=== PATIENT | female | born 1980 | race Caucasian/White ===

== ENCOUNTER 2018-04-26 14:00 | Outpatient (RCR) | payer MEDICAID, SELFPAY ==
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
--- NOTE | 2018-04-20 07:40 | HP.PTEVAL ---
Patient's Visit Information RAUL HOPPER is a 38 year old F referred to Physical Therapy by Anca Philippe MD with a diagnosis of CVA with R LE weakness. Date of Evaluation: 04/18/18 Physical Therapist: Evelio Lee DPT - Visit Plan Frequency: 2-3x /Week Duration: 6-8 weeks Plan: HS stretching, R G/S stretching; BLE/core strengthening, cardiovascular fitness progress this is HEP. Add in coordination exercises for RLE, balance activities and gait progression to increase safety and stability. Urge and progress HEP to increase pt. carry over. - Subjective Findings: Pt is here today for her initial evaluation with diagnosis of CVA with R LE weakness. Pt. reports having her CVA several years ago, but was unsure when. Pt. has a history of multiple heart bipasses, history of heroin and meth abuse. Pt. reports having completed PT previously with good results, but wants to be normal now. Pt. is able to ambualte without AD, but has R sided AFO that she uses when she is out in community. Pt. walks barefoot at home, most of the time. Pt. reprots no pain, but does have R sided visual cut, no peripheral vision to the R side. Pt. also has a history of recent siezures. Pt. does not drive. Pt. is able to complete most ADLs, but has difficulty completing due to physical limitations. Pt. is hopeful to increas her strength in order to get back to running. - Objective POSTURE: Pt. has L lateral lean in stance, R hip ER, wide LILY, hyperext of R knee. Pt. has anterior pelvic tilt of her pelvis. PALPATION: Pt. has no pain with palpation of BLEs. Pt. has normal pulse in B LEs. Pt. has decreased sensation of RLE, worst distally. NEURO: Pt. has deminished DTR of RLE, normal on LLE throughout. Decreased sensation of LLE. Pt. is unable to complete heel/toe raise on RLE, but is able to complete shaikh stratch and hip IR. Decreased coordination noted in RLE. ROM: Pt. has tight B HS R worse than L. Pt. has tight G/S complex on RLE. Pt. has normal ROM otherwise. MMT: LLE- ankle 5/5; knee 5/5; hip 4/5 throughout. RLE- ankle- PF 4/5, DF 3/5, 1/5 EVR, 4/5 INV; knee- ext 4/5, fxion 4-/5; hip- flexion 4-/5 abd 4-/5, ext 4-/5. Core- poor. GAIT: Pt. is able to ambulate without AD, but has increased R hip ER, increased R knee hyperextension during stance phase, decreased knee flexion during swing phase, limited hip flexion and increased trunk rotation to R during R pre swing. STAIRS: PT. is able to negotiate with step to pattern with 2 HR. Pt. does have marked functional quad/glute weakness with both ascending and descending. - Goals Goal 1:: Pt. to be I with HEP. Goal Time Frame: 6-8 Weeks Goal 2:: Pt. to have increased RLE strength of all effected musculature by 1/2 grade allowing for increased stability with all functional mobility. Goal Time Frame: 4-6 Weeks Goal 3:: Pt. to ambulate unlimited distances I without AD with improved gait pattern allowing for increased ease with community mobility. Goal Time Frame: 6-8 Weeks Goal 4:: Pt. to have increased FGA score to 19/30 indicating reduce risk for future falls. Goal Time Frame: 6-8 Weeks Goal 5:: Pt. to negotiate steps JESSENIA with reciprical pattern with use of BHR allowing for increased safety with in home. Goal Time Frame: 6-8 Weeks - Rehabilitation Potential Physical Therapy Diagnosis: Pt. has signs and symptoms of R sided weakness with history fo CVA. Pt. is a poor historian and was unaware of date injury. Pt. has several co moborbidities including Hx of drug abuse and cardiac issues. Pt. would benefit from PT to increase BLE strength, balance, improve her gait pattern and increase cardiovascular fitness. Rehabilitation Potential: Fair - Anticipated Interventions Patient/Client Instruction: Educate patient on: Condition, Plan of Care, Risk Factors, Benefits of Fitness Program For the Purpose of:: To improve decision making, To facilitate caregiver knowledge, To improve self management, To prevent re-injury, To improve ability to perform tasks related to life management, To improve tolerance to ADL's Therapeutic Exercise to Include: Strength training, Power training, Endurance training, Balance training, Coordination, Agility training, Body mechanics, Postural training, Flexibilty training, Gait and locomotor training, Passive ROM, Active ROM, Dynamic Lumbar Stabilization For the Purpose of:: To increase ROM, To improve nutrient delivery to tissue, To increase oxygenation perfusion, To improve muscle performance and motor function, To improve ability to perform ADL's, To increase tolerance to activity/condition/position, To improve gait and locomotor functions, To improve health of tissue, To decrease soft tissue restriction, To increase flexibility/ROM, To improve endurance, To improve balance, To improve safety with gait, To assume or resume ADL's Thank you for the opportunity to evaluate your patient. For Medicare and Medicare HMO plans, please review the plan of care and approve it. It will need to be FAXED BACK to us at [phone] for Medicare purposes. For Medicare only, by signing this I certify the plan of care. Please let me know if there are questions or concerns regarding this plan of care. Physician Signature: Date:
--- NOTE | 2018-05-21 17:02 | HP.SP.DC ---
ST Discharge Summary - Discharged: Discharge: Meg Casillas is discharged from outpatient speech-language therapy effective 05/21/2018. Meg attended her initial evaluation 04/18/2018 with therapy recommended at that time for aphasia and other cognitive-linguistic deficits secondary to a CVA and significant history of drug abuse. Meg did not attend any therapy appointments, however, due to being placed in a psychiatric hospital due to suicide threats/mental health issues. Please reconsult as necessary.
--- NOTE | 2018-05-24 14:39 | HP.PT.NRP ---
HP - Discharge Summary (1) - Patient Information RAUL HOPPER was seen in my office for initial evaluation on 04/18/18. The following Plan of Care was established for this patient: Initial Frequency: 2-3x /Week Initial Duration: 6-8 weeks - Anticipated Interventions Patient/Client Instruction: Educate patient on: Condition, Plan of Care, Risk Factors, Benefits of Fitness Program For the Purpose of:: To improve decision making, To facilitate caregiver knowledge, To improve self management, To prevent re-injury, To improve ability to perform tasks related to life management, To improve tolerance to ADL's Therapeutic Exercise to Include: Strength training, Power training, Endurance training, Balance training, Coordination, Agility training, Body mechanics, Postural training, Flexibilty training, Gait and locomotor training, Passive ROM, Active ROM, Dynamic Lumbar Stabilization For the Purpose of:: To increase ROM, To improve nutrient delivery to tissue, To increase oxygenation perfusion, To improve muscle performance and motor function, To improve ability to perform ADL's, To increase tolerance to activity/condition/position, To improve gait and locomotor functions, To improve health of tissue, To decrease soft tissue restriction, To increase flexibility/ROM, To improve endurance, To improve balance, To improve safety with gait, To assume or resume ADL's This patient was last seen in our office 04/26/18. Pertinent comments regarding their Physical therapy will appear below: Pt. was seen for her weakness after CVA. Pt. did not attend her last 4 visits. I talked to mother and pt. is having a lot going on in her life and will not be able to attend PT right. Pt. will be DC back to physician at this point in time. At this point I will be discontinuing this patient from physical therapy. I would be happy to see this patient again in the future if found appropriate by the physician. Thank you! Evelio Lee DPT
--- OUTSIDE RECORDS SUMMARY | 2018-07-20 14:45 | XMS RPT_ITS ---
:1980 Author Organization OH[facility] Care Team Providers Name Role Phone SHAMIKA, CADE Referring Unavailable SHEREE SAUCEDO ([facility]) Referring Unavailable SHEREE SAUCEDO ([facility]) Attending Unavailable GANTA, CADE Referring Unavailable SHEREE SAUCEDO ([facility]) Referring Unavailable LOVE PRICE ([facility]) Attending Unavailable GANTA, CADE Referring Unavailable GANTA, CADE Attending Unavailable SHEREE SAUCEDO ([facility]) Referring Unavailable DERRICK SALGADO Attending Unavailable MARTY CREWS Attending Unavailable MARTY CREWS E Referring Unavailable MARTY CREWS E Referring Unavailable GANTA, CADE Referring Unavailable GANTA, CADE Referring Unavailable GANTA, CADE Referring Unavailable Ganta, Cade Primary Care Unavailable Mariella Abraham Attending Unavailable Ganta, Cade Attending Unavailable Ganta, Cade Referring Unavailable Ganta, Cade Primary Care Unavailable PROBLEMS PROBLEMS DATE TYPE CONDITION / CODE ATTENDING STATUS SOURCE 05/03/2018 Unknown R45.1 - Restlessness [place], Active [place] and agitation / [facility] R45.1(ICD-10) Hospital Repository 05/24/2018 Unknown I69.311 - Memory Ganta, Cade Active [facility] deficit following [facility] cerebral infarction Hospital / I69.311(ICD-10) Repository 04/18/2018 Active Cerebral infarction, NA Active [place] unspecified / Clinic Main I63.9(ICD-10) [place] Repository 04/10/2018 Active 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 / [place] Z95.2(ICD-10) Repository 04/03/2018 Active Unknown / DERRICK SALGADO Active [place] UNK(Unknown) Clinic Main [place] Repository 04/02/2018 Active Encounter for NA Active [place] therapeutic drug [facility] Main level monitoring / [place] Z51.81(ICD-10) Repository 03/08/2018 Active Excessive and NA Active [place] frequent [facility] Main menstruation with [place] regular cycle / Repository N92.0(ICD-10) 03/06/2018 Active terminal superintendent (current) NA Active [place] use of [facility] Main anticoagulants / [place] Z79.01(ICD-10) Repository PROCEDURES PROCEDURES No Procedure Records FoundRESULTS RESULTS PROTIME Collected: 05/23/2018 Status: F Source: [place] 7:47 AM [facility] REPOSITORY TYPE CODE TESTS RESULT OUT OF RANGE REFERENCE UNITS LAB PSEC 9.7-13.0 sec High PT Sec 14.6 LAB INR 0.9-1.3 High PT INR 1.4 Result Comment: Vitamin K Antagonist (VKA) Therapeutic Range: INR 2 to 3 (Target INR of 2.5) Note: For patients treated with VKA drugs, such as warfarin, the [place] [employer] 2012 Guideline recommends a therapeutic INR range of 2 to 3 (target INR of 2.5). This recommendation includes high-risk patients with antiphospholipid syndrome with previous arterial or venous thromboembolism, current-generation mechanical or bioprosthetic aortic heart valve replacement. Note: Patients with mechanical aortic valve replacement and additional risk factors for thromboembolic events (atrial fibrillation, previous thromboembolism, LV dysfunction, hypercoagulable conditions) or an older generation mechanical AVR (i.e., ball in-Cage) or any mechanical MVR should have a INR therapeutic range of 2.5 to 3.5 (target INR of 3). Aaron GH, et al. Chest 2012, 141:7S-47S Tip RA, et al. [facility] 2017, 70: 252-289 Performed By: #### PT #### [facility] [address] [place] [address] CNPN Observed: 05/23/2018 Status: COMPLETED Source: [place] 12:00 AM [facility] REPOSITORY Telephone (INTMWS) DOREEN CASILLAS ([id number]) 1980 F BLD Date Time Provider Department 05/23/18 CADE WICK During your visit today, we recorded the following information about you: Vickie Mattson X RAY SERVICE ENGINEER 05/23/2018 3:37 PM Signed Last INR: INR (POCT) 1.4 05/23/2018 Unable to reach pt's mother, no answer/no voicemail. Vickie Mattson X RAY SERVICE ENGINEER 05/23/2018 3:48 PM Signed [facility] f/lab calling, pt there and confirmed below: Last INR: INR (POCT) 1.4 05/23/2018 Current dose of coumadin is: 4mg daily(did not change as previously instructed). Last date of dose change: unknown. Previous INR (date and result): 2.3 04/18/2018 Additional Clinical Information or narrative: no CADE WIKC MD 05/23/2018 5:19 PM Signed coumadin dose should be 5 mg Monday and and 4 mg all other days. Recheck in a weeks time. Bella Harkins Lyft Driver 05/23/2018 6:08 PM Signed Left detailed message on VM Allergies As of Date: 05/23/2018 Noted Allergy Reaction BEE STING 04/26/2016 10 - Anaphylaxis Date Reviewed: 04/10/2018 Reviewed by: Hanane Membreno MA - Fully Assessed Reason for Visit: Anticoagulation [8] Prescriptions as of 05/23/2018 Sig: MELATONIN 5 MG TABLET Take 1 tablet by mouth daily * GLECAPREVIR 100 MG-PIBRENTASV* Take 3 tablets by mouth once * SERTRALINE 100 MG TABLET Take 2 tablets by mouth once * LEVETIRACETAM 500 MG TABLET Take 1.5 tablets by mouth onc* LEVETIRACETAM 1,000 MG TABLET Take 1 tablet by mouth daily * TRAZODONE 100 MG TABLET Take 1 tablet by mouth daily * COMPOUNDED PRESCRIPTION Physical Therapy COMPOUNDED PRESCRIPTION Consult speech WARFARIN 1 MG TABLET Take half a pill every other * WARFARIN 3 MG TABLET 3mgs daily(Add 0.5 mgs to thi* TRAZODONE 50 MG TABLET Take 50 mg by mouth daily at * COMPOUNDED PRESCRIPTION Medical Van to transport to a* COMPOUNDED PRESCRIPTION PT/OT/ST at [facility]. POLYETHYLENE GLYCOL 3350 17 G* 17 grams daily ACETAMINOPHEN 500 MG TABLET Take 1 tablet by mouth every * Problem List As Of Date 05/23/2018 Noted Resolved Aneurysm, cerebral [I67.1] INVALID FOR* More... Hep C w/o coma, chronic (HCC) [B18.2] INVALID FOR* More... Stroke (HCC) [I63.9] INVALID FOR* More... 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 Tobacco abuse disorder [Z72.0] INVALID FOR* More... Hx of substance abuse [Z87.898] INVALID FOR* More... Attention to gastrostomy tube (HCC) [Z43.1] INVALID FOR* More... Encounter Status:Closed by BELLA HARKINS CMA on 05/23/18 D/C SUMMARY- SP Observed: 05/21/2018 Status: F Source: [place] 5:02 PM [facility] REPOSITORY [facility] Speech Pathology [facility] [address] [place] [address]. [address] [place] [id number] / REHABILITATION SERVICES DISCHARGE SUMMARY MR#: [id number] Acct: [id number] Name: RAUL CASILLAS Rep #: [id number] : 1980 38 From: Fay Pearson M.S., BALJIT-WATER CONTROL STATION ENGINEER Referring Dr.: Cade Wick MD Status: REG RCR Insurance: MEDICAID SELF PAY INSURANCE ST Discharge Summary - Discharged: Discharge: Raul Casillas is discharged from outpatient speech- language therapy effective 05/21/2018. Raul attended her initial evaluation 04/18/2018 with therapy recommended at that time for aphasia and other cognitive-linguistic deficits secondary to a CVA and significant history of drug abuse. Raul did not attend any therapy appointments, however, due to being placed in a psychiatric hospital due to suicide threats/mental health issues. Please reconsult as necessary. <Electronically signed by Fay Pearson M.S., CCC-WATER CONTROL STATION ENGINEER> 05/21/18 1709 CC: Cade Wick MD MO Signed 12 LEAD ELECTROCARDIOGRAM Observed: 05/08/2018 Status: F Source: [place] 10:51 AM [facility] Cardiovascular Services [address] [place] [address] 12 Lead EKG 05/01/181958 MR#: [id number] Acct: [id number] Name: RAUL CASILLAS Rep #: [id number] : 1980 38 From: Hector Gong MD Attending Dr: Status: DEP ER Ordering Dr: Mariella Abraham MD Date: 05/01/18 Location: ED Sex: F C Admitted: Test Reason : Blood Pressure : / mmHG Vent. Rate : 084 BPM Atrial Rate : 084 BPM P-R Int : 180 ms QRS Dur : 086 ms QT Int : 376 ms P-R-T Axes : 040 094 069 degrees QTc Int : 444 ms Normal sinus rhythm Possible Left atrial enlargement Rightward axis Borderline ECG Confirmed by VIKAS HOU, HECTOR ([id number]), continuity editor EMILI GAMA ([id number]) on 05/08/2018 10:50:29 AM Referred By: LADONNA Confirmed By:HECTOR GONG MD 05/08/18 1050 Date Hector Gong MD CC: Mariella Abraham MD; Cade Wick MD Signed EMERGENCY DEPARTMENT Observed: 05/03/2018 Status: F Source: [place] SUMMARY 10:18 PM [facility] REPOSITORY [facility] Medical Records Department [address] [place] [address] Emergency Department Summary 05/03/18 2216 MR#: [id number] Acct: [id number] Name: RAUL CASILLAS Rep #: [id number] : 1980 38 From: Tino Hay DO PCP: Cade Wick MD Status: REG ER - ER Visit Summary Date of Service: 05/03/18 Chief Complaint: [] History of Present Illness: The patient is a 38 F [] Physical Examination: [] Test Results: [] Emergency Department Course and Treatment: [] Treatment Plan: [] Disposition: [] Impression: [] This note was generated with [employer] dictation software. It may contain incorrect words, spelling, and punctuation that were not noted in review of the chart prior to signing ED Disposition - Plan for ED Patient: Disposition: Home or Assisted Living Chief Complaint: Mental Health Diagnosis: Schizophrenia Instructions: ED Schizophrenia General Referrals: Cade Wick MD [Primary Care Provider] - What to do if you have Problems For any increased pain, shortness of breath, bleeding, nausea or vomiting, chest pain, or any unexpected problems, contact your Primary Care Provider. Call [facility] ([phone]) or report to the closest Emergency Room. Call 911 if necessary. 05/03/182217 <Electronically signed by Tino Hay DO> Date Tino Hay DO Cosigner Signature (If Indicated): Date CC: Cade Wick MD EMERGENCY DEPARTMENT Observed: 05/03/2018 Status: C Source: [place] SUMMARY 10:07 PM [facility] REPOSITORY [facility] Medical Records Department [address] [facility] [address] Emergency Department Summary 04/30/186 MR#: [id number] Acct: [id number] Name: WARDRAUL CARPENTER Rep #: [id number] : 1980 38 From: Mariella Abraham MD PCP: Cade Wick MD Status: REG ER ADDENDUM by Tino Hay DO on 05/03/18 at 2207 Care of the patient was turned over to me. Patient has required another dose of Geodon. Patient was able to contact her father. He is beginning to make arrangements to become her guardian. He is accepting responsibility of the patient and wants to take her home. Patient is not suicidal or homicidal. Crisis counseling was able to arrange for outpatient follow-up tomorrow morning at the crisis center. Patient will be discharged to the care of her father. He has accepted responsibility of the patient and will keep her safe. He will make sure that the patient goes to her appointment tomorrow morning. Date Tino Hay DO cc: Cade Wick MD * Addendum ADDENDUM by Demarco Cote MD on 05/03/18 at 1551 May 03, 2018 at 3:50 PM. Patient remains in the emergency department. She is psychotic and requiring periodic Geodon. We are still awaiting placement. She is not safe to be discharged. She is not safe for outpatient follow-up. We will continue the involuntary admission order. We are still awaiting placement. Date Demarco Cote MD cc: Cade Wick MD * Addendum - ER Visit Summary Date of Service: 04/30/18 Chief Complaint: Agitation History of Present Illness: The patient is a 38 F presenting with mother for agitation. Patient is refusing to answer questions on arrival. Her mother states that she has stated that she will kill herself with heroin. Patient states that she just wants to be admitted to a mental hospital. She refuses to answer any questions regarding this. She is currently living with her mother. Her mother states she has said that she wants to do heroin so she can . Physical Examination: Vitals are stable. Patient is afebrile. Alert no acute distress. HEENT exam is unremarkable. Neck is supple. Lungs are clear and equal bilaterally. Heart is regular rate and rhythm. Abdomen is soft nontender nondistended. Extremities are unremarkable. Skin is warm and dry. No focal neurologic deficit. Agitated Remainder of exam is unremarkable. Emergency Department Course and Treatment: Patient was given Geodon IM. She was initially placed in restraints. When calm and cooperative restraints were removed. CBC, chemistries unremarkable. INR is 1.7. Alcohol is negative. Tox is pending. Will discuss with the counseling center for evaluation. Disposition: per counseling center Impression: Suicidal ideation, agitation This note was generated with [employer] dictation software. It may contain incorrect words, spelling, and punctuation that were not noted in review of the chart prior to signing ED Disposition - Plan for ED Patient: Chief Complaint: Mental Health Referrals: Cade Wick MD [Primary Care Provider] - What to do if you have Problems For any increased pain, shortness of breath, bleeding, nausea or vomiting, chest pain, or any unexpected problems, contact your Primary Care Provider. Call [facility] ([phone]) or report to the closest Emergency Room. Call 911 if necessary. 04/30/180 <Electronically signed by Mareilla Abraham MD> Date Mariella Abraham MD Cosigner Signature (If Indicated): Date CC: Cade Wick MD PROTHROMBIN TIME W/INR Collected: 05/03/2018 Status: F Source: [place] 8:30 PM [facility] REPOSITORY TYPE CODE TESTS RESULT OUT OF RANGE REFERENCE UNITS LAB L300.4150 11.7-14.9 SECONDS High PROTIME 19.0 LAB L300.4200 Normal INR 1.6 Performed By: #### L300.3900 #### [facility] [address] [place], [address] PROGRESS Observed: 05/02/2018 Status: COMPLETED Source: [place] 12:38 PM [facility] REPOSITORY O ID: [id number] Author: Radha Meraz (Sw) Service: (none) Author Type: Global Regulatory Lead Type: Progress Notes Filed: 05/02/2018 12:46 PM Note Text: Yoni received guardianship paperwork from [facility] with sister Hanane named as patient guardian out of [place]. Yoni reviewed above note and patient it appears is being admitted to facility from ED. Yoni unsure about guidelines in regards to [place] law and [place] law if patient sister is still guardian. Will follow along with Care Coordination to see if further assistance is needed for patient. PROGRESS Observed: 05/02/2018 Status: COMPLETED Source: [place] 6:54 AM [facility] [place] REPOSITORY HNO ID: [id number] Author: Cade Wick Service: (none) Author Type: Physician Type: Progress Notes Filed: 05/02/2018 12:46 PM Note Text: Noted, We may have to send to get her need for guardianship established. Radha mentioned that there is a place that would do it. Can we get her there? For guardianship? For the bigger problem of needing rehab, I really agree she needs rehab and is acting the way she is because of addiction disease. Can we follow up to see if she has got set up with 180? Regards, Cade Wick MD URINALYSIS, COMPLETE Collected: 05/01/2018 Status: F Source: [place] 9:12 PM [facility] REPOSITORY Order Comment: How was Urine Obtained? CLEAN CATCH TYPE CODE TESTS RESULT OUT OF RANGE REFERENCE UNITS LAB L400.3000 Yellow COLOR Normal Yellow LAB L400.3050 Clear Normal CLARITY Sl. Cloudy LAB L400.3200 Normal mg/dl Normal GLUCOSE, UR Normal LAB L400.3300 Negative mg/dL Normal BILIRUBIN URINE Negative LAB L400.3400 Negative mg/dl Normal KETONE UR Negative LAB L400.3465 1.002-1.030 Normal SP.GR. DIPSTX 1.020 LAB L400.3550 5.0 - 8.0 pH UR Normal 6.0 LAB L400.3600 Negative mg/dl PROT Normal DIPSTX Negative LAB L400.3700 Normal mg/dl Normal UROBILI Normal LAB L400.3750 Negative Normal NITRITE UR Negative LAB L400.3780 Negative /ul High OCCULT BLOOD-UR 250 LAB L400.3800 Negative /ul LEUK Normal ESTERASE Negative LAB L400.4050 0-5 /hpf WBC 0 Normal SEEN LAB L400.4100 0-5 /hpf Normal RBC-UA 0-5 SEEN LAB L400.4150 5-10 /hpf SQUAM Normal EPI 0-5 SEEN LAB L400.4300 None Seen /hpf Normal BACTERIA RARE LAB L400.4350 <or=2+ /hpf 0 Normal MUCUS, URINE SEEN Performed By: #### L400.0001 #### [facility] [address] [place], [address] URINE DRUG SCREEN Collected: 04/30/2018 Status: F Source: [place] (VISTA) 10:00 PM [facility] REPOSITORY TYPE CODE TESTS RESULT OUT OF RANGE REFERENCE UNITS LAB L505.0075 TO BE Normal CONFIRMED Result Comment: CONFIRMATORY TESTING FOR ALL POSITIVE URINE DRUG SCREEN RESULTS WILL ONLY BE SENT OUT UPON PHYSICIAN ORDER. VISTA Urine Drug Screen methods provide only preliminary analytical test results. A more specific alternate chemical method must be used in order to obtain a confirmed analytical result. Gas chromatography/mass spectrometery (GC/MS) is the preferred confirmatory method. Clinical consideration and professional judgement should be applied to any drug of abuse test result, particularly when preliminary positive results are used. URINE TCA TESTING MUST BE ORDERED SEPARATELY. USE TEST MNEMONIC: [facility] LAB L505.5005 VISTA UDS PH 6 Normal LAB L505.5015 <1000 ng/mL AMPHETAMINES Normal NEGATIVE LAB L505.5025 < 200 ng/mL BARBITIURATES Normal NEGATIVE LAB L505.5035 < 200 ng/mL BENZODIAZIPINE Normal NEGATIVE LAB L505.5045 < 300 ng/mL COCAINE Normal NEGATIVE LAB L505.5055 < 500 ng/mL ECSTACY Normal NEGATIVE LAB L505.5065 < 300 ng/mL METHADONE Normal NEGATIVE LAB L505.5075 < 300 ng/mL OPIATES Normal NEGATIVE LAB L505.5085 < 25 ng/mL PCP Normal NEGATIVE LAB L505.5095 < 50 High ng/mL THC POSITIVE Performed By: #### L505.5000 #### [facility] [address] [place], [address] CBC W/DIFF, AUTOMATED Collected: 04/30/2018 Status: F Source: [place] 9:40 PM [facility] REPOSITORY TYPE CODE TESTS RESULT OUT OF RANGE REFERENCE UNITS LAB L100.1000 4.4-11.0 K/mm3 Normal WBC 4.7 LAB L100.1200 4.2-5.4 M/mm3 Low RBC 3.75 LAB L100.1300 12.0-15.0 g/dl Low HGB 11.5 LAB L100.1400 37-47 % Low HCT 34.1 LAB L100.1500 81-99 fL Normal MCV 90.9 LAB L100.1600 27.0-32.0 pg Normal MCH 30.7 LAB L100.1700 32-36 g/gl Normal MCHC 33.7 LAB L100.1810 11.6-14.6 % Normal RDW CV 14.0 LAB L100.1820 35.1-43.9 fl High RDW SD 46.5 LAB L100.1900 150-450 K/mm3 Normal PLT 200 LAB L100.2000 6.2-12.0 fl High MPV 12.5 LAB L100.2100 47-70 % Normal NEUT% 47.9 LAB L100.2200 19-41 % Normal LY% 40.3 LAB L100.2300 0-10 % Normal MONO% 8.7 LAB L100.2400 0-5 % Normal EO% 2.5 LAB L100.2500 0-1 % Normal BASO% 0.4 LAB L100.2550 0.0-0.9 % Normal IM GRAN % 0.200 Result Comment: IG% - Immature Granulocytes (promyelocytes, myelocytes and metamyelocytes) > 1% indicates that a LEFT SHIFT is Present. LAB L100.2620 2.0-7.7 X10 3/uL Normal Absolute Neut 2.3 LAB L100.2720 0.83-4.51 X10 3/ul Normal Absolute Lymph 1.90 Performed By: #### L100.0100 #### [facility] [address] [place], [place], [id number] PROTHROMBIN TIME W/INR Collected: 04/30/2018 Status: F Source: [place] 9:40 PM [facility] REPOSITORY TYPE CODE TESTS RESULT OUT OF RANGE REFERENCE UNITS LAB L300.4150 11.7-14.9 SECONDS High PROTIME 20.1 LAB L300.4200 Normal INR 1.7 Performed By: #### L300.3900 #### [facility] [address] [place], [place], [id number] ALCOHOL, BLOOD Collected: 04/30/2018 Status: F Source: [place] (MEDICAL)-SERUM 9:40 PM [facility] REPOSITORY TYPE CODE TESTS RESULT OUT OF RANGE REFERENCE UNITS LAB L501.9100 mg/dL Normal SERUM < 3.0 ETOH Result Comment: The serum:whole blood ethanol ratio is approximately 1.14 and varies slightly with hematocrit. Medical Alcohol reference interval and critical value in non-tolerant individuals; 50 - 100 Impairment 100 Intoxication 100 - 250 Severe Poisoning 250 - 400 Deep/possible fatal coma Performed By: #### L501.9100 #### [facility] [address] [facility] [address] [place], [place], [id number] BASIC METABOLIC Collected: 04/30/2018 Status: F Source: [place] PROFILE (BMP) 9:40 PM [facility] REPOSITORY TYPE CODE TESTS RESULT OUT OF RANGE REFERENCE UNITS LAB L501.0100 74-106 mg/dL Normal GLU 83 Result Comment: Please note revised GLUCOSE reference range effective 2017. LAB L501.1000 7-18 mg/dL Normal BUN 15 LAB L501.1100 0.55-1.02 mg/dL Normal CREAT,SERUM 0.77 Result Comment: The validity of the calculated GFR AND GFRAA in patients over 70 years has not been determined. Clinical correlation is essential. LAB L501.1110 >60 mL/min Normal EST GFR 91 Result Comment: Non- GFR Calc LAB L501.1115 >60 mL/min Normal EST GFR - AA 110 Result Comment: GFR Calc LAB L501.1255 ml/min Normal Estimated CRCL 120.23 LAB L501.1300 10-20 RATIO BUN/CRE Normal 19.6 LAB L501.2200 8.5-10 mg/dL .1 CA Normal 8.6 LAB L501.5300 136-14 mmol/L 5 NA Normal 145 LAB L501.5600 3.5-5. mmol/L 1 K Normal 3.5 LAB L501.5900 98-107 mmol/L High CL 112 LAB L501.6100 21.0-3 mmol/L 2.0 CO2 Normal 23.0 LAB L501.6200 5-15 GAP Normal 10 Performed By: #### L500.2500 #### [facility] [address] [facility] [place], [address] ,SERUM,HCG QUALI. Collected: Status: F Source: [place] 04/30/2018 9:40 PM [facility] REPOSITORY TYPE CODE TESTS RESULT OUT OF REFERENCE UNITS RANGE LAB L700.7000 0-9 Nonpreg Negative Normal HCGSQUAL NEGATIVE LAB L700.6700 =>Qualitative mIU/mL Normal HCG Qual < 1 triggr Performed By: #### L700.6800 #### [facility] [address] [place], [place], [address] LIVER PROFILE Collected: 04/30/2018 Status: F Source: [place] 9:40 PM [facility] REPOSITORY Order Comment: ADD ON TYPE CODE TESTS RESULT OUT OF RANGE REFERENCE UNITS LAB L501.1500 6.4-8.2 g/dL Normal T PROT 7.1 LAB L501.1800 3.2-5.0 g/dL Normal ALB 3.7 LAB L501.1950 2.2-4.2 g/dL Normal GLOB 3.4 LAB L501.4100 15-37 U/L Normal AST 17 Result Comment: Slight Hemolysis, Result may be falsely increased. LAB L501.4305 45-117 U/L Normal ALK P 63 LAB L501.4405 13-56 U/L Normal ALT 16 LAB L501.4600 0.20-1.00 mg/dL Normal T BILI 0.20 LAB L501.4700 0.00-0.30 mg/dL Normal D BILI 0.08 Performed By: #### L500.3400 #### [facility] [address] [place], [place], [address] PROGRESS Observed: 04/30/2018 Status: COMPLETED Source: [place] 12:16 PM [facility] REPOSITORY O ID: [id number] Author: Valorie (Rn) Noé Service: (none) Author Type: Registered Nurse Type: Progress Notes Filed: 04/30/2018 12:58 PM Note Text: PRIMARY CARE COORDINATION FOLLOW-UP NOTE Provider Action/FYI Mother here for information to have pt placed in drug rehab Gave Crisis Hotline number for [facility] Patient identified by name and date of . YES Spoke to MotherOlga Summary: Met with patient's mother in department, states she is trying to get her daughter readmitted to drug rehab because her daughter was out on the streets last night looking for drugs. States she doesn't want to wait until her daughter is foaming at the mouth before something can be done for pt. Mother called the police but they felt patient was competent to make her own decisions and would not intervene. [facility] and they told her there wasn't anything they could do. PCC called [facility] but telephone operator receptionist wasn't able to offer suggestions. Mother states she was just on the phone to patient's guardian in [place] to get advice on what to do and guardian states mother should work to get patient to admitted to rehab facility. Discussed if pt is competent to make decisions there may not be much mother can do to have patient place. Mother states she has much documentation that pt isn't competent to make decisions. Gave mother the Crisis Hotline [phone] for [facility]. Instructed to have pt's guardian's name and number available in case [facility] Duffy would like to speak to them, verbalized understanding. Informed we have a SW available here on Mon but [facility] may be best agency to contact today. Sequ[employer] Spooler plan for next outreach: No further follow up needed at this time Signature Valorie Umanzor RN April 30, 2018 [place] Observed: 04/30/2018 Status: COMPLETED Source: [place] 12:00 AM [facility] CENTER REPOSITORY Patient Outreach (FAMPWS) DOREEN CASILLAS ([id number]) 1980 F BLD Date Time Provider Department 04/30/18 VALORIE UMANZOR (TRINIDAD) TIEN During your visit today, we recorded the following information about you: Valorie Umanzor RN 04/30/2018 12:58 PM Signed PRIMARY CARE COORDINATION FOLLOW-UP NOTE Provider Action/FYI Mother here for information to have pt placed in drug rehab Gave Crisis Hotline number for [facility] Patient identified by name and date of . YES Spoke to MotherOlga Summary: Met with patient's mother in department, states she is trying to get her daughter readmitted to drug rehab because her daughter was out on the streets last night looking for drugs. States she doesn't want to wait until her daughter is foaming at the mouth before something can be done for pt. Mother called the police but they felt patient was competent to make her own decisions and would not intervene. [facility] and they told her there wasn't anything they could do. PCC called [facility] but telephone operator receptionist wasn't able to offer suggestions. Mother states she was just on the phone to patient's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 04/10/18 12:45 PM MARTY CREWS During your visit today, we recorded the following information about you: Pulse Blood pressure Weight Height 81/minute 100/68 81.7 kg 1.88 m Marty Crews MD 04/11/2018 9:14 AM Signed PERTINENT CARDIAC HISTORY MV replacement Chronic drug abuse ADHERENCE TO GUIDELINES CARLOS-I or ARB for HF with prior LVEF<40 (NQF 0081) - N/A ASA or Plavix for ASHD (NQF 0067) - N/A Beta govind for ASHD with prior ME or prior LVEF<40 (NQF 0070) - N/A Beta govind for HF with prior LVEF<40 (NQF 0083) - N/A CARLOS-I or ARB for ASHD with DM or prior LVEF<40 (NQF 0066) - N/A Statin therapy for ASHD or FHL or DM - N/A BMI documented and plan if >25 (NQF 0421) - lifestyle recommendation form Tobacco use screening and referral (NQF 0028) - lifestyle recommendation form Recommendation for whole food, plant based diet - lifestyle recommendation form CLINICAL IMPRESSION/PLAN: Doreen Casillas has had multiple cardiac procedures. Details will be sought. She appears to have a mechanical mitral valve. Her target INR range should be at least 2.5 to 3.5 with concomitant aspirin 81 milligrams daily, if she can tolerate this from a medical point of view. She was advised to increase her Coumadin to 3.5 milligrams daily for the time being, until INR can be rechecked this week. She was strongly advised to stop using recreational drugs and to avoid social situations where she is influenced adversely. Previous records will be requested. Echocardiogram will be performed to assess her current LV function and valve gradients. Lifestyle change was discussed. She was strongly advised to stop smoking. I will see her in 4 months or as needed. She's been advised to call if she has increased chest pain, shortness of breath or new neurologic symptoms. Thank you for asking me to see and make recommendations on Doreen Casillas. This report is available to you in the shared medical record. Written and verbal health teaching given to patient, patient verbalizes understanding and agrees with treatment plan. DIAGNOSIS FOR VISIT: MVR Chronic drug use HISTORY OF PRESENT ILLNESS Doreen Casillas is a 38-year-old woman with complicated past cardiac history who was seen in consultation at the request of Dr. Wick, for cardiac follow-up and recommendations regarding management of anticoagulation. She Comes with No Records. She Relates a History of 2 Separate Valve Surgeries over the past 5 years. She Apparently Had Endocarditis. Her Most Recent Valve Was Mechanical Valve. She Has Been Placed on Anticoagulation, Which Has Been Man[facility]. She Was Recently Brought Back to [place] to Stay with Her Mother. She Continues to Use Street Drugs, but Denies Any Recent IV Drug Use. She has a Previous History of Heroin and Cocaine Abuse. She Has Had Multiple Complications including Stroke. Details of Her past History Are Not Available. She denies Chest Pain. She Reports Stable Exercise Tolerance. She's Had No Orthopnea. She's Had Trace Edema. She has Undergone Treatment for Stroke. 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 She denies claudication, palpitations, syncope. She reports compliance with her anticoagulation, but does not know her target INR range. She has been on warfarin recently. She has not been on aspirin recently. She does not recall any recent problems with hemorrhage. ALLERGIES: ALLERGIES Allergen Reactions - Bee Sting Anaphylaxis CURRENT OUTPATIENT MEDICATIONS: acetaminophen (TYLENOL EXTRA STRENGTH) 500 mg tablet Take 1 tablet by mouth every 6 hours as needed for Pain. COMPOUNDED PRESCRIPTION PT/OT/ST at [facility]. COMPOUNDED PRESCRIPTION Medical Van to transport to and from [facility] for PT, OT, ST. COMPOUNDED PRESCRIPTION Physical Therapy COMPOUNDED PRESCRIPTION Consult speech glecaprevir-pibrentasvir (MAVYRET) 100-40 mg tab Take 3 tablets by mouth once daily. levETIRAcetam (KEPPRA) 1,000 mg tablet Take 1 tablet by mouth daily at bedtime. levETIRAcetam (KEPPRA) 500 mg tablet Take 1.5 tablets by mouth once daily. In the morning melatonin 5 mg tablet Take 1 tablet by mouth daily at bedtime. polyethylene glycol 3350 (MIRALAX) 17 gram/dose powder 17 grams daily sertraline (ZOLOFT) 100 mg tablet Take 2 tablets by mouth once daily. traZODone (DESYREL) 100 mg tablet Take 1 tablet by mouth daily at bedtime. traZODone (DESYREL) 50 mg tablet Take 50 mg by mouth daily at bedtime. 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 - Impairment of cognitive function 02/07/2017 Patient deemed incapacitated with Guardian appointed- sisterHanane [phone] - Poisoning by heroin, accidental (unintentional), sequela - Seizures (HCC) - Stroke (HCC) PAST SURGICAL HISTORY Procedure Laterality Date - BRAIN AVM SURG,DURAL,COMPLX 03/01/2016 - S PK OPEN HEART [id number] 03/01/2015 FAMILY HISTORY Problem Relation Age of Onset - Hypertension Mother Social History Marital status: Single Spouse name: Years of education: Number of children: Occupational History Occupation Employer Comment disability Social History Main Topics Smoking status: Current Every Day Smoker Packs/day: 1.00 Years: 22.00 Types: Cigarettes Smokeless tobacco: Never Used Alcohol use: No Drug use: Yes Frequency: 1.0 time per week Types: Marijuana Comment: every day Sexual activity: Not Currently REVIEW OF SYSTEMS: General: No chills, fever, weight loss, night sweats. SHEENT: No change in auditory acuity. Respiratory: No productive cough. Cardiac: As noted above. GI: No melena. : No dysuria. Musculoskeletal: No myalgias. Neurologic: As above. Psychiatric: As above. Endocrine: No diabetes. Hematologic: No anemia. PHYSICAL EXAMINATION: S/he is alert and in no distress VITAL SIGNS: BP 100/68 Pulse 81 Ht 6' 2 (1.88m) Wt 180 lb 3.2 oz (81.7kg) LMP 03/31/2018 BMI 23.13 kg/(m2). SHEENT: Skin is warm and dry. Pupils are round and reactive. No xanthelasmas appreciated. Pharynx is benign. There is no oral cyanosis. Neck: supple. No adenopathy or thyroid enlargement. Chest: Clear to auscultation. Trachea is midline. Air entry is equal. There is no chest wall tenderness. Cardiac: Regular rhythm. Mechanical mitral valve sounds are normal. PMI is nondisplaced. There is a soft systolic ejection murmur. Carotids are brisk without bruits. JVP is less than 10 cm. Abdomen: Soft and nontender. There are no pulsatile masses or bruits. No liver enlargement. Bowel sounds are active. : Deferred. Extremities: No edema. Pulses are intact and symmetrical. No clubbing or cyanosis. No femoral bruits. Neurologic: There is a mild right hemiparesis. S/he is alert and oriented x4. Musculoskeletal: No joint deformities. EKG shows sinus rhythm. There is rightward axis. Most recent INR was subtherapeutic. Electronically Signed: Marty Crews MD April 10, 2018 12:25 PM CC: MD Marty PINEDA MD 04/10/2018 12:26 PM Signed LIFESTYLE CHANGE A healthy lifestyle is the most important component of your overall treatment plan. Please give serious thought to the following areas and commit to making senior living changes. EAT A WHOLE FOOD, PLANT BASED DIET The nutrition your body gets is more important than the medicine you take. What matters most is the overall way you eat. We encourage you to minimize the use of animal products (which include dairy and all meats except fatty fish) and use whole, unprocessed plant foods to provide your protein, vitamins and other nutrients. We have a lot of information to share with you on this topic. This is not a diet. It is a way of life that you will keep with you. EXERCISE REGULARLY It is not important to spend hours in the gym, lifting weights and perspiring heavily. A total of 2-3 hours per week of aerobic (causing you to be moderately short of breath) exercise is sufficient to improve your health. Talk to us before you begin a new exercise program, if you have heart disease or experience shortness of breath or chest pain. REDUCE STRESS Chronic emotional and physical stress leads to disease. Ways of reducing stress include meditation, visualization, prayer, yoga and other forms of relaxation therapy. Consistency is the rubin. Find a technique that works for you and do it every day. CULTIVATE RELATIONSHIPS Loneliness and isolation have a major negative impact on health. Seek out others who can love, care for and nurture you. Avoid hurtful relationships. MAINTAIN IDEAL BODY WEIGHT The best way to do this is to do all the things above. Our bodies naturally find the right weight if we keep moving and feed ourselves the right food. If your BMI is greater than 25, we strongly recommend a referral to a weight management program. Please speak to us or your family physician about available programs. AVOID NICOTINE IN ALL FORMS This includes all tobacco products, whether chewed, smoked, vaped, or rubbed on the skin. Smoking cessation programs, which can make use of tobacco substitutes, medications to suppress cravings and behavior management, are available. Please contact your family physician about programs in your area. Referring Provider: SELF [[id number]] Allergies As of Date: 04/10/2018 Noted Allergy Reaction BEE STING 04/26/2016 10 - Anaphylaxis Date Reviewed: 04/10/2018 Reviewed by: Hanane Membreno MA - Fully Assessed Reason for Visit: Established Patient [175] Primary Visit Diagnosis:S/P MVR (mitral valve replacement) [Z95.2] Order(s):ECG COMPLETE W INTERPRETATION [ECG01] Order #: [id number] FUTURE ECHO [655910] Order #: [id number]: 1 FUTURE Prescriptions as of 04/10/2018 Sig: ACETAMINOPHEN 500 MG TABLET Take 1 tablet by mouth every * COMPOUNDED PRESCRIPTION PT[facility]OT[facility]. COMPOUNDED PRESCRIPTION Medical Van to transport to a* COMPOUNDED PRESCRIPTION Physical Therapy COMPOUNDED PRESCRIPTION Consult speech GLECAPREVIR 100 MG-PIBRENTASV* Take 3 tablets by mouth once * LEVETIRACETAM 1,000 MG TABLET Take 1 tablet by mouth daily * LEVETIRACETAM 500 MG TABLET Take 1.5 tablets by mouth onc* MELATONIN 5 MG TABLET Take 1 tablet by mouth daily * POLYETHYLENE GLYCOL 3350 17 G* 17 grams daily SERTRALINE 100 MG TABLET Take 2 tablets by mouth once * TRAZODONE 100 MG TABLET Take 1 tablet by mouth daily * TRAZODONE 50 MG TABLET Take 50 mg by mouth daily at * WARFARIN 1 MG TABLET Take half a pill every other * WARFARIN 3 MG TABLET 3mgs daily(Add 0.5 mgs to thi* Problem List As Of Date 04/10/2018 Noted Resolved Aneurysm, cerebral [I67.1] INVALID FOR* More... Hep C w/o coma, chronic (HCC) [B18.2] INVALID FOR* More... Stroke (HCC) [I63.9] INVALID FOR* More... 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 Tobacco abuse disorder [Z72.0] INVALID FOR* More... Hx of substance abuse [Z87.898] INVALID FOR* More... Attention to gastrostomy tube (HCC) [Z43.1] INVALID FOR* More... Other instructions from your clinician: LIFESTYLE CHANGE A healthy lifestyle is the most important component of your overall treatment plan. Please give serious thought to the following areas and commit to making rat exterminator changes. EAT A WHOLE FOOD, PLANT BASED DIET The nutrition your body gets is more important than the medicine you take. What matters most is the overall way you eat. We encourage you to minimize the use of animal products (which include dairy and all meats except fatty fish) and use whole, unprocessed plant foods to provide your protein, vitamins and other nutrients. We have a lot of information to share with you on this topic. This is not a diet. It is a way of life that you will keep with you. EXERCISE REGULARLY It is not important to spend hours in the gym, lifting weights and perspiring heavily. A total of 2-3 hours per week of aerobic (causing you to be moderately short of breath) exercise is sufficient to improve your health. Talk to us before you begin a new exercise program, if you have heart disease or experience shortness of breath or chest pain. REDUCE STRESS Chronic emotional and physical stress leads to disease. Ways of reducing stress include meditation, visualization, prayer, yoga and other forms of relaxation therapy. Consistency is the rubin. Find a technique that works for you and do it every day. CULTIVATE RELATIONSHIPS Loneliness and isolation have a major negative impact on health. Seek out others who can love, care for and nurture you. Avoid hurtful relationships. MAINTAIN IDEAL BODY WEIGHT The best way to do this is to do all the things above. Our bodies naturally find the right weight if we keep moving and feed ourselves the right food. If your BMI is greater than 25, we strongly recommend a referral to a weight management program. Please speak to us or your family physician about available programs. AVOID NICOTINE IN ALL FORMS This includes all tobacco products, whether chewed, smoked, vaped, or rubbed on the skin. Smoking cessation programs, which can make use of tobacco substitutes, medications to suppress cravings and behavior management, are available. Please contact your family physician about programs in your area. Follow-up and Disposition History Recorded Encounter Status:Closed by MARTY CREWS MD on 04/11/18 PROTIME Collected: 04/10/2018 Status: F Source: [place] 12:44 PM [facility] REPOSITORY TYPE CODE TESTS RESULT OUT OF RANGE REFERENCE UNITS LAB PSEC 9.7-13.0 sec High PT Sec 37.1 LAB INR 0.9-1.3 High PT INR 3.9 Result Comment: Vitamin K Antagonist (VKA) Therapeutic Range: INR 2 to 3 (Target INR of 2.5) Note: For patients treated with VKA drugs, such as warfarin, the [employer] 2012 Guideline recommends a therapeutic INR range of 2 to 3 (target INR of 2.5). This recommendation includes high-risk patients with antiphospholipid syndrome with previous arterial or venous thromboembolism, current-generation mechanical or bioprosthetic aortic heart valve replacement. Note: Patients with mechanical aortic valve replacement and additional risk factors for thromboembolic events (atrial fibrillation, previous thromboembolism, LV dysfunction, hypercoagulable conditions) or an older generation mechanical AVR (i.e., ball in-Cage) or any mechanical MVR should have a INR therapeutic range of 2.5 to 3.5 (target INR of 3). Aaron GH, et al. Chest 2012, 141:7S-47S Tip RA, et al. [facility] 2017, 70: 252-289 Performed By: #### PT #### [facility] [address] [place] [address] PROGRESS Observed: 04/10/2018 Status: COMPLETED Source: [place] 12:25 PM [facility] REPOSITORY HNO ID: [id number] Author: Marty Crews Service: (none) Author Type: Physician Type: Progress Notes Filed: 04/11/2018 9:14 AM Note Text: PERTINENT CARDIAC HISTORY MV replacement Chronic drug abuse ADHERENCE TO GUIDELINES CARLOS-I or ARB for HF with prior LVEF<40 (NQF 0081) - N/A ASA or Plavix for ASHD (NQF 0067) - N/A Beta govind for ASHD with prior ME or prior LVEF<40 (NQF 0070) - N/A Beta govind for HF with prior LVEF<40 (NQF 0083) - N/A CARLOS-I or ARB for ASHD with DM or prior LVEF<40 (NQF 0066) - N/A Statin therapy for ASHD or FHL or DM - N/A BMI documented and plan if >25 (NQ 0421) - lifestyle recommendation form Tobacco use screening and referral (NQ 0028) - lifestyle recommendation form Recommendation for whole food, plant based diet - lifestyle recommendation form CLINICAL IMPRESSION/PLAN: Doreen Casillas has had multiple cardiac procedures. Details will be sought. She appears to have a mechanical mitral valve. Her target INR range should be at least 2.5 to 3.5 with concomitant aspirin 81 milligrams daily, if she can tolerate this from a medical point of view. She was advised to increase her Coumadin to 3.5 milligrams daily for the time being, until INR can be rechecked this week. She was strongly advised to stop using recreational drugs and to avoid social situations where she is influenced adversely. Previous records will be requested. Echocardiogram will be performed to assess her current LV function and valve gradients. Lifestyle change was discussed. She was strongly advised to stop smoking. I will see her in 4 months or as needed. She's been advised to call if she has increased chest pain, shortness of breath or new neurologic symptoms. Thank you for asking me to see and make recommendations on Doreen Casillas. This report is available to you in the shared medical record. Written and verbal health teaching given to patient, patient verbalizes understanding and agrees with treatment plan. DIAGNOSIS FOR VISIT: MVR Chronic drug use HISTORY OF PRESENT ILLNESS Doreen Casillas is a 38-year-old woman with complicated past cardiac history who was seen in consultation at the request of Dr. Wick, for cardiac follow-up and recommendations regarding management of anticoagulation. She Comes with No Records. She Relates a History of 2 Separate Valve Surgeries over the past 5 years. She Apparently Had Endocarditis. Her Most Recent Valve Was Mechanical Valve. She Has Been Placed on Anticoagulation, Which Has Been Managed Recently [facility]. She Was Recently Brought Back to [place] to Stay with Her Mother. She Continues to Use Street Drugs, but Denies Any Recent IV Drug Use. She has a Previous History of Heroin and Cocaine Abuse. She Has Had Multiple Complications including Stroke. Details of Her past History Are Not Available. She denies Chest Pain. She Reports Stable Exercise Tolerance. She's Had No Orthopnea. She's Had Trace Edema. She has Undergone Treatment for Stroke. 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 She denies claudication, palpitations, syncope. She reports compliance with her anticoagulation, but does not know her target INR range. She has been on warfarin recently. She has not been on aspirin recently. She does not recall any recent problems with hemorrhage. ALLERGIES: ALLERGIES Allergen Reactions - Bee Sting Anaphylaxis CURRENT OUTPATIENT MEDICATIONS: acetaminophen (TYLENOL EXTRA STRENGTH) 500 mg tablet Take 1 tablet by mouth every 6 hours as needed for Pain. COMPOUNDED PRESCRIPTION PT/OT/ST at [facility]. COMPOUNDED PRESCRIPTION Medical Van to transport to and from [facility] [place] [facility] for PT, OT, ST. COMPOUNDED PRESCRIPTION Physical Therapy COMPOUNDED PRESCRIPTION Consult speech glecaprevir-pibrentasvir (MAVYRET) 100-40 mg tab Take 3 tablets by mouth once daily. levETIRAcetam (KEPPRA) 1,000 mg tablet Take 1 tablet by mouth daily at bedtime. levETIRAcetam (KEPPRA) 500 mg tablet Take 1.5 tablets by mouth once daily. In the morning melatonin 5 mg tablet Take 1 tablet by mouth daily at bedtime. polyethylene glycol 3350 (MIRALAX) 17 gram/dose powder 17 grams daily sertraline (ZOLOFT) 100 mg tablet Take 2 tablets by mouth once daily. traZODone (DESYREL) 100 mg tablet Take 1 tablet by mouth daily at bedtime. traZODone (DESYREL) 50 mg tablet Take 50 mg by mouth daily at bedtime. 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 - Impairment of cognitive function 02/07/2017 Patient deemed incapacitated with Guardian appointed- sisterHanane [phone] - Poisoning by heroin, accidental (unintentional), sequela - Seizures (HCC) - Stroke (HCC) PAST SURGICAL HISTORY Procedure Laterality Date - BRAIN AVM SURG,DURAL,COMPLX 03/01/2016 - S PK OPEN HEART [id number] 03/01/2015 FAMILY HISTORY Problem Relation Age of Onset - Hypertension Mother Social History Marital status: Single Spouse name: Years of education: Number of children: Occupational History Occupation Employer Comment disability Social History Main Topics Smoking status: Current Every Day Smoker Packs/day: 1.00 Years: 22.00 Types: Cigarettes Smokeless tobacco: Never Used Alcohol use: No Drug use: Yes Frequency: 1.0 time per week Types: Marijuana Comment: every day Sexual activity: Not Currently REVIEW OF SYSTEMS: General: No chills, fever, weight loss, night sweats. SHEENT: No change in auditory acuity. Respiratory: No productive cough. Cardiac: As noted above. GI: No melena. : No dysuria. Musculoskeletal: No myalgias. Neurologic: As above. Psychiatric: As above. Endocrine: No diabetes. Hematologic: No anemia. PHYSICAL EXAMINATION: S/he is alert and in no distress VITAL SIGNS: BP 100/68 Pulse 81 Ht 6' 2 (1.88m) Wt 180 lb 3.2 oz (81.7kg) LMP 03/31/2018 BMI 23.13 kg/(m2). SHEENT: Skin is warm and dry. Pupils are round and reactive. No xanthelasmas appreciated. Pharynx is benign. There is no oral cyanosis. Neck: supple. No adenopathy or thyroid enlargement. Chest: Clear to auscultation. Trachea is midline. Air entry is equal. There is no chest wall tenderness. Cardiac: Regular rhythm. Mechanical mitral valve sounds are normal. PMI is nondisplaced. There is a soft systolic ejection murmur. Carotids are brisk without bruits. JVP is less than 10 cm. Abdomen: Soft and nontender. There are no pulsatile masses or bruits. No liver enlargement. Bowel sounds are active. : Deferred. Extremities: No edema. Pulses are intact and symmetrical. No clubbing or cyanosis. No femoral bruits. Neurologic: There is a mild right hemiparesis. S/he is alert and oriented x4. Musculoskeletal: No joint deformities. EKG shows sinus rhythm. There is rightward axis. Most recent INR was subtherapeutic. Electronically Signed: Marty Crews MD April 10, 2018 12:25 PM CC: CADE WICK MD HEPATITIS C AB IA Collected: 04/03/2018 Status: F Source: [place] 3:08 PM [facility] REPOSITORY TYPE CODE TESTS RESULT OUT OF RANGE REFERENCE UNITS LAB AHCV Negative Abnormal Hepatitis C Ab Positive Alert IA Result Comment: Confirmation with Hepatitis C RNA is suggested. Testing may be performed on the same sample if requested through Client Services ([phone]) within seven days. Performed By: #### AHCV, HCQPCR, HEPGEN #### [facility] [address] [id number] HEPATITIS C RNA Collected: 04/03/2018 Status: F Source: [place] 3:08 PM [facility] REPOSITORY TYPE CODE TESTS RESULT OUT OF REFERENCE UNITS RANGE LAB HCQPCR IU/mL Hepatitis C RNA HCV RNA not detected by PCR. Result Comment: Reference Range: Negative for HCV RNA The Linear Range of this assay is 15 IU/mL to 100,000,000 IU/mL. Performed By: #### AHCV, HCQPCR, HEPGEN #### [facility] [address] [place], [place] [address] HEPATITIS C GENOTYPE Collected: 04/03/2018 Status: F Source: [place] 3:08 PM [facility] REPOSITORY TYPE CODE TESTS RESULT OUT OF REFERENCE UNITS RANGE LAB HCGEN Hep C Genotype Test not performed, HCV viral load <500 IU/ml. Account credited. Performed By: #### AHCV, HCQPCR, HEPGEN #### [facility] [address] [place], [place] [address] PROGRESS Observed: 04/03/2018 Status: COMPLETED Source: [place] 1:39 PM [facility] REPOSITORY HNO ID: [id number] Author: Derrick Salgado Service: (none) Author Type: Physician Type: Progress Notes Filed: 04/03/2018 2:55 PM Note Text: Doreen Casillas is a 38 year old female who presents for Nexplanon insertion. Patient's last menstrual period was 03/05/2018 (exact date). VITALS: LMP 03/05/2018 test: negative Nexplanon lot #: [id number] Exp date: 05/2020 UNIVERSAL PROTOCOL / SAFETY CHECKLIST Procedure to be performed: Nexplanon Insertion Sign in Communication: Completed Time Out: Team Confirms the Correct Patient, Correct Procedure, Correct Site and Site Marking, Correct Position (if applicable), Prep and Dry Time (if applicable). Affirmation of Time Out: N/A Sign Out Discussion: Completed TECHNIQUE: Patient placed in supine position with left) bent at the elbow and placed over the head. Skin cleansed with betadine. 3 mL of 1% lidocaine injected subQ along insertion site. Nexplanon yoselin inserted under sterile technique. The yoselin was palpable under the skin after insertion and the notch visible on the trochar after insertion. Steristrips and sterile pressure dressing applied. AANDP: Nexplanon inserted without complications. Patient user card was filled out and given to the patient. The patient was instructed to remove the dressing after 24 hours. Derrick Salgado DO CNOV Observed: 04/03/2018 Status: COMPLETED Source: [place] 1:30 PM [facility] REPOSITORY Office Visit (WOOB) DOREEN CASILLAS ([id number]) 1980 F BLD Date Time Provider Department 04/03/18 1:30 PM DERRICK SALGADO During your visit today, we recorded the following information about you: Blood pressure Weight Last Period 106/70 83.1 kg 03/31/18 Derrick Salgado MD 04/03/2018 2:55 PM Signed Doreen Casillas is a 38 year old female who presents for Nexplanon insertion. Patient's last menstrual period was 03/05/2018 (exact date). VITALS: LMP 03/05/2018 test: negative Nexplanon lot #: [id number] Exp date: 05/2020 UNIVERSAL PROTOCOL / SAFETY CHECKLIST Procedure to be performed: Nexplanon Insertion Sign in Communication: Completed Time Out: Team Confirms the Correct Patient, Correct Procedure, Correct Site and Site Marking, Correct Position (if applicable), Prep and Dry Time (if applicable). Affirmation of Time Out: N/A Sign Out Discussion: Completed TECHNIQUE: Patient placed in supine position with left) bent at the elbow and placed over the head. Skin cleansed with betadine. 3 mL of 1% lidocaine injected subQ along insertion site. Nexplanon yoselin inserted under sterile technique. The yoselin was palpable under the skin after insertion and the notch visible on the trochar after insertion. Steristrips and sterile pressure dressing applied. AANDP: Nexplanon inserted without complications. Patient user card was filled out and given to the patient. The patient was instructed to remove the dressing after 24 hours. DO Terrie Camacho MA 04/03/2018 1:39 PM Signed NEXPLANON PATIENT EDUCATION You may remove dressing in 24 hours. Expect some bruising around insertion site. You may take over the counter pain medication (i.e. Tylenol, motrin, advil, etc) if you have discomfort. Call your provider with excessive bruising or pain. Continue to use condoms for STD prevention. You should use backup contraception for 7 days to prevent . Referring Provider: SELF [[id number]] Allergies As of Date: 04/03/2018 Noted Allergy Reaction BEE STING 04/26/2016 10 - Anaphylaxis Date Reviewed: 04/03/2018 Reviewed by: Terrie Dawson - Fully Assessed Reason for Visit: nexplanon insertion [Other] Primary Visit Diagnosis:Nexplanon insertion [Z30.017] Other Visit Diagnosis:Insertion of implantable subdermal contraceptive [Z30.017] Order(s):HCG QUAL UR B/O [[id number]] Order #: [id number] NEXPLANON INSERTION [[id number]] Order #: [id number] [] etonogestrel subdermal implant 68 mg (NEXPLANON)Disp: Rfl: Prescriptions as of 04/03/2018 Sig: MELATONIN 5 MG TABLET Take 1 tablet by mouth daily * GLECAPREVIR 100 MG-PIBRENTASV* Take 3 tablets by mouth once * SERTRALINE 100 MG TABLET Take 2 tablets by mouth once * LEVETIRACETAM 500 MG TABLET Take 1.5 tablets by mouth onc* LEVETIRACETAM 1,000 MG TABLET Take 1 tablet by mouth daily * TRAZODONE 100 MG TABLET Take 1 tablet by mouth daily * COMPOUNDED PRESCRIPTION Physical Therapy COMPOUNDED PRESCRIPTION Consult speech WARFARIN 1 MG TABLET Take half a pill every other * WARFARIN 3 MG TABLET 3mgs daily(Add 0.5 mgs to thi* TRAZODONE 50 MG TABLET Take 50 mg by mouth daily at * COMPOUNDED PRESCRIPTION Medical Van to transport to a* COMPOUNDED PRESCRIPTION PT[facility]OT/ST at [facility]. POLYETHYLENE GLYCOL 3350 17 G* 17 grams daily ACETAMINOPHEN 500 MG TABLET Take 1 tablet by mouth every * Problem List As Of Date 04/03/2018 Noted Resolved Aneurysm, cerebral [I67.1] INVALID FOR* More... Hep C w/o coma, chronic (HCC) [B18.2] INVALID FOR* More... Stroke (HCC) [I63.9] INVALID FOR* More... 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 Tobacco abuse disorder [Z72.0] INVALID FOR* More... Hx of substance abuse [Z87.898] INVALID FOR* More... Attention to gastrostomy tube (HCC) [Z43.1] INVALID FOR* More... Other instructions from your clinician: NEXPLANON PATIENT EDUCATION You may remove dressing in 24 hours. Expect some bruising around insertion site. You may take over the counter pain medication (i.e. Tylenol, motrin, advil, etc) if you have discomfort. Call your provider with excessive bruising or pain. Continue to use condoms for STD prevention. You should use backup contraception for 7 days to prevent . Prescriptions ordered this encounter Disp Refills Start End ETONOGESTREL 68 MG SUBDERMAL IMPLANT 04/03/2018 04/03/2018 Route: SDRM Disposition: Return in about 1 year (around 04/03/2019) for annual. Follow-up and Disposition History Recorded Encounter Status:Closed by DERRICK SALGADO MD on 04/03/18 PROTIME Collected: 04/02/2018 Status: F Source: [place] 1:02 PM [facility] [place] REPOSITORY TYPE CODE TESTS RESULT OUT OF RANGE REFERENCE UNITS LAB PSEC 9.7-13.0 sec High PT Sec 22.9 LAB INR 0.9-1.3 High PT INR 2.3 Result Comment: Vitamin K Antagonist (VKA) Therapeutic Range: INR 2 to 3 (Target INR of 2.5) Note: For patients treated with VKA drugs, such as warfarin, the [employer] 2012 Guideline recommends a therapeutic INR range of 2 to 3 (target INR of 2.5). This recommendation includes high-risk patients with antiphospholipid syndrome with previous arterial or venous thromboembolism, current-generation mechanical or bioprosthetic aortic heart valve replacement. Note: Patients with mechanical aortic valve replacement and additional risk factors for thromboembolic events (atrial fibrillation, previous thromboembolism, LV dysfunction, hypercoagulable conditions) or an older generation mechanical AVR (i.e., ball in-Cage) or any mechanical MVR should have a INR therapeutic range of 2.5 to 3.5 (target INR of 3). Aaron TOLEDO, et al. Chest 2012, 141:7S-47S Tip RA, et al. [facility] 2017, 70: 252-289 Performed By: #### PT #### [facility] [address] [address] PROGRESS Observed: 03/29/2018 Status: COMPLETED Source: [place] 1:16 PM [facility] REPOSITORY HNO ID: [id number] Author: Katherine Gilliland Service: (none) Author Type: Registered Nurse Type: Progress Notes Filed: 04/12/2018 11:54 AM Note Text: Tried calling her mom and phone is currently not in service. PROGRESS Observed: 03/29/2018 Status: COMPLETED Source: [place] 1:15 PM [facility] [place] REPOSITORY HNO ID: [id number] Author: Katherine Gilliland Service: (none) Author Type: Registered Nurse Type: Progress Notes Filed: 04/12/2018 11:54 AM Note Text: Thank you! I'll mention to her mom. PROGRESS Observed: 03/29/2018 Status: COMPLETED Source: [place] 9:51 AM [facility] [place] REPOSITORY HNO ID: [id number] Author: Radha Meraz (Sw) Service: (none) Author Type: Global Regulatory Lead Type: Progress Notes Filed: 04/12/2018 11:54 AM Note Text: What about seeing if she could have registered nurse hh case manager through [facility]? Patient would have to speak with [employer] and request aged or disabled care worker to help assist with health and mental health needs. PROGRESS Observed: 03/28/2018 Status: COMPLETED Source: [place] 5:17 PM [facility] REPOSITORY HNO ID: [id number] Author: Cade Wick Service: (none) Author Type: Physician Type: Progress Notes Filed: 04/12/2018 11:54 AM Note Text: Noted, very sorry about the current situation PROGRESS Observed: 03/27/2018 Status: COMPLETED Source: [place] 3:27 PM [facility] REPOSITORY HNO ID: [id number] Author: Katherine Gilliland Service: (none) Author Type: Registered Nurse Type: Progress Notes Filed: 04/12/2018 11:54 AM Note Text: PRIMARY CARE COORDINATION FOLLOW-UP NOTE Provider Action/FYI: Mother feels after 3 wks at home, pt is making very poor choices, sneaking out of the house, demanding, cussing, and mother doesn't feel she can handle Raul any longer. Any suggestions besides those below? Patient identified by name and date of . YES Spoke to patient Summary: Mother calling for help. [facility], but has appt with psychiatrist in a few weeks. I spoke with [facility] psych Dept and they have already discussed with mother and have nothing to offer currently. I called [facility] and they will investigate places with the info I have provided and call me back for possible residential facilities. Concerns: Pt will likely be difficult to place with numerous issues. Mother doesn't want her to go back to [place] as it is too far to visit. She is upset because she has lost her job because of her daughter's behavior at boss's house, cussing, etc. Pt cannot live within confines of appropriate behavior/language. Has left home snuck out according to mom and was gone for hours and required intensive search by mother. Have spoken with [facility] and their recc included Behavioral OP treatment by [facility], Call Crisis if pt becomes dangerous, and the one residential place mentioned was [facility] in [place]. I gathered information on line as well and will have it for mom to rock picker or mail to her to review. [facility] likely has a Coating Engineer as well to discuss this with. [employer] plan for next outreach: Will follow up with mother Signature Katherine Gilliland RN Ambulatory Head Lineman Internal Medicine [facility] March 27, 2018 NIKO Observed: 03/27/2018 Status: COMPLETED Source: [place] 12:00 AM [facility] REPOSITORY Patient Outreach (INTMWS) DOREEN CASILLAS ([id number]) 1980 F BLD Date Time Provider Department 03/27/18 KATHERINE RAMACHANDRAN During your visit today, we recorded the following information about you: Katherine Lund RN 04/12/2018 11:54 AM Signed PRIMARY CARE COORDINATION FOLLOW-UP NOTE Provider Action/FYI: Mother feels after 3 wks at home, pt is making very poor choices, sneaking out of the house, demanding, cussing, and mother doesn't feel she can handle Raul any longer. Any suggestions besides those below? Patient identified by name and date of . YES Spoke to patient Summary: Mother calling for help. [facility] and going to [facility] there, but has appt with psychiatrist in a few weeks. I spoke with [facility] psych Dept and they have already discussed with mother and have nothing to offer currently. I called [facility] and they will investigate places with the info I have provided and call me back for possible residential facilities. Concerns: Pt will likely be difficult to place with numerous issues. Mother doesn't want her to go back to [place] as it is too far to visit. She is upset because she has lost her job because of her daughter's behavior at boss's house, cussing, etc. Pt cannot live within confines of appropriate behavior/language. Has left home snuck out according to mom and was gone for hours and required intensive search by mother. Have spoken with [facility] and their recc included Behavioral OP treatment by [facility], Call Crisis if pt becomes dangerous, and the one residential place mentioned was [facility] in [place]. I gathered information on line as well and will have it for mom to rock picker or mail to her to review. [facility] likely has a Coating Engineer as well to discuss this with. Sequins Sp[employer]er plan for next outreach: Will follow up with mother Signature Katherine Gilliland RN Ambulatory Head Lineman Internal Medicine [facility] March 27, 2018 CADE WICK MD 04/12/2018 11:54 AM Signed Noted, very sorry about the current situation CURT Smith-STICK FEEDER 04/12/2018 11:54 AM Signed What about seeing if she could have registered nurse hh case manager through [facility]? Patient would have to speak with [facility] and request aged or disabled care worker to help assist with health and mental health needs. Katherine Lund RN 04/12/2018 11:54 AM Signed Thank you! I'll mention to her mom. Katherine Lund RN 04/12/2018 11:54 AM Signed Tried calling her mom and phone is currently not in service. Allergies As of Date: 03/27/2018 Noted Allergy Reaction BEE STING 04/26/2016 10 - Anaphylaxis Date Reviewed: 03/19/2018 Reviewed by: Shirley Portillo LPN - Fully Assessed Reason for Visit: Head Lineman Chronic Care [3774] Prescriptions as of 03/27/2018 Sig: ACETAMINOPHEN 500 MG TABLET Take 1 tablet by mouth every * COMPOUNDED PRESCRIPTION PT[facility]OT/ST at [facility]. COMPOUNDED PRESCRIPTION Medical Van to transport to a* COMPOUNDED PRESCRIPTION Physical Therapy COMPOUNDED PRESCRIPTION Consult speech GLECAPREVIR 100 MG-PIBRENTASV* Take 3 tablets by mouth once * LEVETIRACETAM 1,000 MG TABLET Take 1 tablet by mouth daily * LEVETIRACETAM 500 MG TABLET Take 1.5 tablets by mouth onc* MELATONIN 5 MG TABLET Take 1 tablet by mouth daily * POLYETHYLENE GLYCOL 3350 17 G* 17 grams daily SERTRALINE 100 MG TABLET Take 2 tablets by mouth once * TRAZODONE 100 MG TABLET Take 1 tablet by mouth daily * TRAZODONE 50 MG TABLET Take 50 mg by mouth daily at * WARFARIN 1 MG TABLET Take half a pill every other * WARFARIN 3 MG TABLET 3mgs daily(Add 0.5 mgs to thi* Problem List As Of Date 03/27/2018 Noted Resolved Aneurysm, cerebral [I67.1] INVALID FOR* More... Hep C w/o coma, chronic (HCC) [B18.2] INVALID FOR* More... Stroke (HCC) [I63.9] INVALID FOR* More... 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 Tobacco abuse disorder [Z72.0] INVALID FOR* More... Hx of substance abuse [Z87.898] INVALID FOR* More... Attention to gastrostomy tube (HCC) [Z43.1] INVALID FOR* More... Encounter Status:Closed by KATHERINE GILLILAND on 04/12/18 PROGRESS Observed: 03/19/2018 Status: COMPLETED Source: [place] 3:59 PM [facility] REPOSITORY HNO ID: [id number] Author: Katherine Gilliland Service: (none) Author Type: Registered Nurse Type: Progress Notes Filed: 03/19/2018 5:03 PM Note Text: PRIMARY CARE COORDINATION IN OFFICE VISIT WITH PCP Patient has been identified by name and date of . PCP Assessment/Plan: Reviewed PCP plan with patient using [facility] Pt ordered refills of meds to go to [facility] so they can be prepackaged. PCC Plan of Care: Patient concerns: Pt is depressed, Hx heroin abuse, HepC +, residual of CVA and states she's had 2 valve replacements in [place] and talks about wanting a pig valve even if it means having it replaced often to avoid taking Coumadin. Discussed the flaws in that plan. Mother will try to get info and records from [place] where she had the surgery. Pt admits to using heroin which prompted her going to the [place] [facility]. Patient goals: To get medications straight and regulated - being sent to [facility]. Long discussion and tearful about losing custody of her 15 and 10 yr daughters. Much emotional support and enc to regain health. Recc she write letters for the girls so when they are of age to see her, she can give to them. She is very emotionally labile. In private, mother discusses that pt must be watched at all times. She took dog for a walk and was gone for 1.5 hrs and mother had to drive around looking for her. Pt had offered a strange man sex for cigarettes. Pt making poor choices. Sister in [place] has guardianship but mother is getting that changed currently and is looking for back up plan in case pt living with her proves unsafe for pt. or she is unable to care for her. PCC Interventions: Instructed mother to [facility] with [facility]. Re-wrote orders for PT/ST at [facility] for PCP Next Office Visit: Visit date not found Plan For Next Call: Next week. Katherine Gilliland RN Ambulatory Head Lineman Internal Medicine [facility] March 19, 2018 PROGRESS Observed: 03/19/2018 Status: COMPLETED Source: [place] 2:23 PM [facility] [place] REPOSITORY [facility] ID: [id number] Author: Cade Wick Service: (none) Author Type: Physician Type: Progress Notes Filed: 03/19/2018 6:07 PM Note Text: Reason for Visit Patient presents with: Established Patient: follow up-meds Doreen Casillas is a 38 year old female who presents here today for Above Complaints.. Health Maintenance DTAP,TDAP,TD(1 - Tdap) ONE PNEUMOVAX PRIOR TO AGE 67 INFLUENZA(1) HPI Raul is a very pleasant lady, who is here with her mother and our coordinator Raul Mcdonald, her memory and comprehension is mildly impaired following 10 year hx of heroin use and previous stroke from cocaine use. Mother present and contributed to majority of visit. Her memory and comprehension is mildly impaired following 10 year hx of heroin use and previous stroke from cocaine use. Mother present and contributed to majority of visit. Here today for medication reconciliation....... Patient apparently has medications missing, she ran out of the [employer], not sure who, but we think that [place] would be a great place to get her medications filled in pop up packs. She is going to see the counseling centre of late. Patient needs speech therapy and Physical Therapy. She is getting on the nexplanon in the next couple weeks. No problem-specific Assessment AND Plan notes found for this encounter. 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 - Impairment of cognitive function 02/07/2017 Patient deemed incapacitated with Guardian appointed- sisterHanane [phone] - Poisoning by heroin, accidental (unintentional), sequela - Seizures (HCC) - Stroke (HCC) PAST SURGICAL HISTORY Procedure Laterality Date - BRAIN AVM SURG,DURAL,COMPLX 03/01/2016 - S PK OPEN HEART [id number] 03/01/2015 FAMILY HISTORY Problem Relation Age of Onset - Hypertension Mother Social History Substance Use Topics - Smoking status: Current Every Day Smoker Packs/day: 1.00 Years: 22.00 Types: Cigarettes - Smokeless tobacco: Never Used - Alcohol use No Past medical history, appointments, medications, allergies reviewed. Pertinent Lab/Diagnostic Studies are reviewed and discussed today Current Outpatient Prescriptions: - sertraline (ZOLOFT) 100 mg tablet - levETIRAcetam (KEPPRA) 500 mg tablet - warfarin (COUMADIN) 1 mg tablet - melatonin 5 mg tablet - glecaprevir-pibrentasvir (MAVYRET) 100-40 mg tab - clindamycin phosphate (CLEOCIN) 2 % vaginal cream - traZODone (DESYREL) 50 mg tablet - COMPOUNDED PRESCRIPTION - warfarin (COUMADIN) 3 mg tablet - COMPOUNDED PRESCRIPTION - polyethylene glycol 3350 (MIRALAX) 17 gram/dose powder - acetaminophen (TYLENOL EXTRA STRENGTH) 500 mg tablet Review of Systems CONSTITUTIONAL: No fevers, chills night sweats, unintended weight loss CARDIOVASCULAR: No chest pain, dyspnea, palpitations, orthopnea, PND, ankle edema. PULM: No dyspnea, unexplained cough. GI: No dysphagia/odynophagia, problematic reflux, constipation, diarrhea, changes in stool habits, hematochezia, melena. : No new urinary complaints, including dysuria, gross hematuria or pyuria. NEURO: No new balance problems, peripheral weakness/paresthesias or numbness of concern. Physical Exam BP 116/60 (BP Site: Left Arm, BP Position: Sitting, BP Cuff Size: Large Adult) Resp 12 Ht 188 cm (6' 2) Wt 84.4 kg (186 lb) LMP 03/05/2018 (Exact Date) BMI 23.88 kg/m? General appearance: Well appearing, alert, in no acute distress, well nourished. Skin: Skin color, texture, turgor normal, no suspicious rashes or lesions Head: Normocephalic, no masses, lesions, tenderness or abnormalities Eyes: Anicteric sclera. Pupils are equally round and reactive to light. Extraocular movements are intact. Lungs: Lungs clear to auscultation. No wheezing, rhonchi, rales Heart: RRR without murmur, gallop, or rubs. Extremities: No deformities, edema, skin discoloration, clubbing or cyanosis. Good capillary refill. ASSESSMENT/PLAN: 1. Anxiety and depression - ICD9: 300.00, 311, ICD10: F41.9, F32.9 (primary diagnosis) Refilled - SERTRALINE 100 MG TABLET 2. Seizure (HCC) - ICD9: 780.39, ICD10: R56.9 Refilled medication - LEVETIRACETAM 500 MG TABLET - LEVETIRACETAM 1,000 MG TABLET 3. Hep C w/o coma, chronic (HCC) - ICD9: 070.54, ICD10: B18.2 She is on medication, we are going to request records on the duration of medication, ? 2 months left. 4. Cerebrovascular accident (CVA) due to other mechanism - ICD9: 434.91, ICD10: I63.89 She also has an artificial valve. 5. Tobacco abuse disorder - ICD9: 305.1, ICD10: Z72.0 - Cessation encouraged. - Physiologic and physical aspects of tobacco addiction as well as strategies for quitting were discussed. - Counseling was given focusing on the harmful effects of this addiction especially given the patient's medical condition(s) which will be worsened because of the chemicals in tobacco. 6. Insomnia, unspecified type - ICD9: 780.52, ICD10: G47.00 - TRAZODONE 100 MG TABLET CADE WICK MD CNOV Observed: 03/19/2018 Status: COMPLETED Source: [place] 2:00 PM [facility] REPOSITORY Office Visit (INTMWS) DOREEN CASILLAS ([id number]) 1980 F BLD Date Time Provider Department 03/19/18 2:00 PM CADE WICK During your visit today, we recorded the following information about you: Respiration Blood pressure Weight Height 12/minute 116/60 84.4 kg 1.88 m CADE WICK MD 03/19/2018 6:07 PM Signed Reason for Visit Patient presents with: Established Patient: follow up-meds Doreen Casillas is a 38 year old female who presents here today for Above Complaints.. Health Maintenance DTAP,TDAP,TD(1 - Tdap) ONE PNEUMOVAX PRIOR TO AGE 67 INFLUENZA(1) HPI Raul is a very pleasant lady, who is here with her mother and our coordinator Raul Mcdonald, her memory and comprehension is mildly impaired following 10 year hx of heroin use and previous stroke from cocaine use. Mother present and contributed to majority of visit. Her memory and comprehension is mildly impaired following 10 year hx of heroin use and previous stroke from cocaine use. Mother present and contributed to majority of visit. Here today for medication reconciliation....... Patient apparently has medications missing, she ran out of the [facility], not sure who, but we think that [place] would be a great place to get her medications filled in pop up packs. She is going to see the counseling [facility]. Patient needs speech therapy and Physical Therapy. She is getting on the nexplanon in the next couple weeks. No problem-specific Assessment AND Plan notes found for this encounter. 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 - Impairment of cognitive function 02/07/2017 Patient deemed incapacitated with Guardian appointed- sister, Hanane Casillas [phone] - Poisoning by heroin, accidental (unintentional), sequela - Seizures (HCC) - Stroke (HCC) PAST SURGICAL HISTORY Procedure Laterality Date - BRAIN AVM SURG,DURAL,COMPLX 03/01/2016 - S PK OPEN HEART [id number] 03/01/2015 FAMILY HISTORY Problem Relation Age of Onset - Hypertension Mother Social History Substance Use Topics - Smoking status: Current Every Day Smoker Packs/day: 1.00 Years: 22.00 Types: Cigarettes - Smokeless tobacco: Never Used - Alcohol use No Past medical history, appointments, medications, allergies reviewed. Pertinent Lab/Diagnostic Studies are reviewed and discussed today Current Outpatient Prescriptions: - sertraline (ZOLOFT) 100 mg tablet - levETIRAcetam (KEPPRA) 500 mg tablet - warfarin (COUMADIN) 1 mg tablet - melatonin 5 mg tablet - glecaprevir-pibrentasvir (MAVYRET) 100-40 mg tab - clindamycin phosphate (CLEOCIN) 2 % vaginal cream - traZODone (DESYREL) 50 mg tablet - COMPOUNDED PRESCRIPTION - warfarin (COUMADIN) 3 mg tablet - COMPOUNDED PRESCRIPTION - polyethylene glycol 3350 (MIRALAX) 17 gram/dose powder - acetaminophen (TYLENOL EXTRA STRENGTH) 500 mg tablet Review of Systems CONSTITUTIONAL: No fevers, chills night sweats, unintended weight loss CARDIOVASCULAR: No chest pain, dyspnea, palpitations, orthopnea, PND, ankle edema. PULM: No dyspnea, unexplained cough. GI: No dysphagia/odynophagia, problematic reflux, constipation, diarrhea, changes in stool habits, hematochezia, melena. : No new urinary complaints, including dysuria, gross hematuria or pyuria. NEURO: No new balance problems, peripheral weakness/paresthesias or numbness of concern. Physical Exam BP 116/60 (BP Site: Left Arm, BP Position: Sitting, BP Cuff Size: Large Adult) Resp 12 Ht 188 cm (6' 2) Wt 84.4 kg (186 lb) LMP 03/05/2018 (Exact Date) BMI 23.88 kg/m? General appearance: Well appearing, alert, in no acute distress, well nourished. Skin: Skin color, texture, turgor normal, no suspicious rashes or lesions Head: Normocephalic, no masses, lesions, tenderness or abnormalities Eyes: Anicteric sclera. Pupils are equally round and reactive to light. Extraocular movements are intact. Lungs: Lungs clear to auscultation. No wheezing, rhonchi, rales Heart: RRR without murmur, gallop, or rubs. Extremities: No deformities, edema, skin discoloration, clubbing or cyanosis. Good capillary refill. ASSESSMENT/PLAN: 1. Anxiety and depression - ICD9: 300.00, 311, ICD10: F41.9, F32.9 (primary diagnosis) Refilled - SERTRALINE 100 MG TABLET 2. Seizure (HCC) - ICD9: 780.39, ICD10: R56.9 Refilled medication - LEVETIRACETAM 500 MG TABLET - LEVETIRACETAM 1,000 MG TABLET 3. Hep C w/o coma, chronic (HCC) - ICD9: 070.54, ICD10: B18.2 She is on medication, we are going to request records on the duration of medication, ? 2 months left. 4. Cerebrovascular accident (CVA) due to other mechanism - ICD9: 434.91, ICD10: I63.89 She also has an artificial valve. 5. Tobacco abuse disorder - ICD9: 305.1, ICD10: Z72.0 - Cessation encouraged. - Physiologic and physical aspects of tobacco addiction as well as strategies for quitting were discussed. - Counseling was given focusing on the harmful effects of this addiction especially given the patient's medical condition(s) which will be worsened because of the chemicals in tobacco. 6. Insomnia, unspecified type - ICD9: 780.52, ICD10: G47.00 - TRAZODONE 100 MG TABLET CADE WICK MD Referring Provider: SELF [200] Allergies As of Date: 03/19/2018 Noted Allergy Reaction BEE STING 04/26/2016 10 - Anaphylaxis Date Reviewed: 03/19/2018 Reviewed by: Shirley Portillo LPN - Fully Assessed Reason for Visit: Established Patient [175] Cmt: follow up-meds Primary Visit Diagnosis:Anxiety and depression [F41.9, F32.9] Other Visit Diagnoses:Seizure (HCC) [R56.9] Hep C w/o coma, chronic (HCC) [B18.2] Cerebrovascular accident (CVA) due to other mechanism [I63.89] Tobacco abuse disorder [Z72.0] Insomnia, unspecified type [G47.00] Order(s):sertraline (ZOLOFT) 100 mg tabletTake 2 tablets by mouth once daily.Disp: 60 tabletRfl: 3 levETIRAcetam (KEPPRA) 500 mg tabletTake 1.5 tablets by mouth once daily. In the morningDisp: 45 tabletRfl: 3 levETIRAcetam (KEPPRA) 1,000 mg tabletTake 1 tablet by mouth daily at bedtime.Disp: 30 tabletRfl: 3 traZODone (DESYREL) 100 mg tabletTake 1 tablet by mouth daily at bedtime.Disp: 30 tabletRfl: 3 COMPOUNDED PRESCRIPTIONPhysical TherapyDisp: 1 EachRfl: 0 COMPOUNDED PRESCRIPTIONConsult speechDisp: 1 EachRfl: 0 warfarin (COUMADIN) 1 mg tabletTake half a pill every other day (3 mgs daily and 3.5 mgs)Disp: 15 tabletRfl: 3 warfarin (COUMADIN) 3 mg ycittn8pml daily(Add 0.5 mgs to this every other day, for a goal of 3 and 3.5 mg alternating.)Disp: 60 tabletRfl: 3 CONSULT TO NON-[facility] FACILITY [[id number]] Order #: [id number] Prescriptions as of 03/19/2018 Sig: MELATONIN 5 MG TABLET Take 1 tablet by mouth daily * GLECAPREVIR 100 MG-PIBRENTASV* Take 3 tablets by mouth once * SERTRALINE 100 MG TABLET Take 2 tablets by mouth once * LEVETIRACETAM 500 MG TABLET Take 1.5 tablets by mouth onc* LEVETIRACETAM 1,000 MG TABLET Take 1 tablet by mouth daily * TRAZODONE 100 MG TABLET Take 1 tablet by mouth daily * COMPOUNDED PRESCRIPTION Physical Therapy COMPOUNDED PRESCRIPTION Consult speech WARFARIN 1 MG TABLET Take half a pill every other * WARFARIN 3 MG TABLET 3mgs daily(Add 0.5 mgs to thi* CLINDAMYCIN 2 % VAGINAL CREAM Use 1 Applicatorful vaginally* TRAZODONE 50 MG TABLET Take 50 mg by mouth daily at * COMPOUNDED PRESCRIPTION Medical Van to transport to a* COMPOUNDED PRESCRIPTION PT/OT/ST at [facility]. POLYETHYLENE GLYCOL 3350 17 G* 17 grams daily ACETAMINOPHEN 500 MG TABLET Take 1 tablet by mouth every * Problem List As Of Date 03/19/2018 Noted Resolved Aneurysm, cerebral [I67.1] INVALID FOR* More... Hep C w/o coma, chronic (HCC) [B18.2] INVALID FOR* More... Stroke (HCC) [I63.9] INVALID FOR* More... 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 Tobacco abuse disorder [Z72.0] INVALID FOR* More... Hx of substance abuse [Z87.898] INVALID FOR* More... Attention to gastrostomy tube (HCC) [Z43.1] INVALID FOR* More... Prescriptions ordered this encounter Disp Refills Start End SERTRALINE 100 MG TABLET 60 t* 3 03/19/2018 Route: ORAL Sig: Take 2 tablets by mouth once daily. LEVETIRACETAM 500 MG TABLET 45 t* 3 03/19/2018 Route: ORAL Sig: Take 1.5 tablets by mouth once daily. In the morning LEVETIRACETAM 1,000 MG TABLET 30 t* 3 03/19/2018 Route: ORAL Sig: Take 1 tablet by mouth daily at bedtime. TRAZODONE 100 MG TABLET 30 t* 3 03/19/2018 Route: ORAL Sig: Take 1 tablet by mouth daily at bedtime. COMPOUNDED PRESCRIPTION 1 Ea* 0 03/19/2018 Class: Print RX Sig: Physical Therapy COMPOUNDED PRESCRIPTION 1 Ea* 0 03/19/2018 Class: Print RX Sig: Consult speech WARFARIN 3 MG TABLET 60 t* 3 03/19/2018 03/19/2018 Simgs daily(Add 0.5 mgs to this every other day, for a goal of 3 and 3.5 mg alternating.) WARFARIN 1 MG TABLET 15 t* 3 03/19/2018 03/19/2018 Sig: Take half a pill every other day (3 mgs daily and 3.5 mgs) WARFARIN 1 MG TABLET 15 t* 3 03/19/2018 Sig: Take half a pill every other day (3 mgs daily and 3.5 mgs) WARFARIN 3 MG TABLET 60 t* 3 03/19/2018 Simgs daily(Add 0.5 mgs to this every other day, for a goal of 3 and 3.5 mg alternating.) Medications Discontinued During This Encounter sertraline (ZOLOFT) 100 mg tablet 03/19/2018 03/19/2018 Class: Med Update Route: ORAL Sig: Take 2 tablets by mouth once daily. Disc: Reason for discontinue is not on file. levETIRAcetam (KEPPRA) 500 mg tablet 03/19/2018 03/19/2018 Class: Med Update Route: ORAL Sig: Take 1.5 tablets by mouth once daily. Disc: Reason for discontinue is not on file. warfarin (COUMADIN) 3 mg tablet 05/12/2016 03/19/2018 Class: Med Update Sig: Take 3mg daily Disc: Reason for discontinue is not on file. Cosign accepted by CADE WICK MD[[id number]] on 08/04/2016 2:41 PM warfarin (COUMADIN) 1 mg tablet 03/19/2018 03/19/2018 Class: Med Update Route: ORAL Sig: Take 1 tablet by mouth once daily. Or as directed Disc: Reason for discontinue is not on file. warfarin (COUMADIN) 1 mg tablet 15 t* 3 03/19/2018 03/19/2018 Sig: Take half a pill every other day (3 mgs daily and 3.5 mgs) Disc: Reason for discontinue is not on file. warfarin (COUMADIN) 3 mg tablet 60 t* 3 03/19/2018 03/19/2018 Simgs daily(Add 0.5 mgs to this every other day, for a goal of 3 and 3.5 mg alternating.) Disc: Reason for discontinue is not on file. Encounter Status:Closed by CADE WICK MD on 03/19/18 PROGRESS Observed: 03/19/2018 Status: COMPLETED Source: [place] 11:19 AM [facility] REPOSITORY O ID: [id number] Author: Sheree Saucedo Service: (none) Author Type: Nurse Practitioner Type: Progress Notes Filed: 03/19/2018 12:00 PM Note Text: Patient was admitted to [facility] 10/11/16 d/t multiple strokes secondary to aneurysms. Sister, Hanane Casillas was appointe patient's legal guardian 01/2017. Listed phone number [phone], she resides in [place] according to admission documents. Patient was discharged 03/05/18 into the care of her mother in [place]. Med list reviewed and updated. Sheree Saucedo APRN.NIKKO CNPTOUTREACH Observed: 03/19/2018 Status: COMPLETED Source: [place] 12:00 AM [facility] [place] REPOSITORY Patient Outreach (INTMWS) WARDKIMSCOTTIE Bashir ([id number]) 1980 F BLD Date Time Provider Department 03/19/18 KATHERINE RAMACHANDRAN During your visit today, we recorded the following information about you: Katherine Lund RN 03/19/2018 5:03 PM Signed PRIMARY CARE COORDINATION IN OFFICE VISIT WITH PCP Patient has been identified by name and date of . PCP Assessment/Plan: Reviewed PCP plan with patient using [facility] Pt ordered refills of meds to go to [facility] so they can be prepackaged. PCC Plan of Care: Patient concerns: Pt is depressed, Hx heroin abuse, HepC +, residual of CVA and states she's had 2 valve replacements in [place] and talks about wanting a pig valve even if it means having it replaced often to avoid taking Coumadin. Discussed the flaws in that plan. Mother will try to get info and records from [place] where she had the surgery. Pt admits to using heroin which prompted her going to the [place] [facility] facility. Patient goals: To get medications straight and regulated - being sent to [facility]. Long discussion and tearful about losing custody of her 15 and 10 yr daughters. Much emotional support and enc to regain health. [facility] she write letters for the girls so when they are of age to see her, she can give to them. She is very emotionally labile. In private, mother discusses that pt must be watched at all times. She took dog for a walk and was gone for 1.5 hrs and mother had to drive around looking for her. Pt had offered a strange man sex for cigarettes. Pt making poor choices. Sister in [place] has guardianship but mother is getting that changed currently and is looking for back up plan in case pt living with her proves unsafe for pt. or she is unable to care for her. PCC Interventions: Instructed mother to discuss with Counseling Center. Re-wrote orders for PT/ST at [facility] for PCP Next Office Visit: Visit date not found Plan For Next Call: Next week. Katherine Gilliland RN Ambulatory Head Lineman Internal Medicine [facility] March 19, 2018 Allergies As of Date: 03/19/2018 Noted Allergy Reaction BEE STING 04/26/2016 10 - Anaphylaxis Date Reviewed: 03/19/2018 Reviewed by: Shirley Portillo LPN - Fully Assessed Reason for Visit: Head Lineman Chronic Care [8601] Prescriptions as of 03/19/2018 Sig: MELATONIN 5 MG TABLET Take 1 tablet by mouth daily * GLECAPREVIR 100 MG-PIBRENTASV* Take 3 tablets by mouth once * SERTRALINE 100 MG TABLET Take 2 tablets by mouth once * LEVETIRACETAM 500 MG TABLET Take 1.5 tablets by mouth onc* LEVETIRACETAM 1,000 MG TABLET Take 1 tablet by mouth daily * TRAZODONE 100 MG TABLET Take 1 tablet by mouth daily * COMPOUNDED PRESCRIPTION Physical Therapy COMPOUNDED PRESCRIPTION Consult speech WARFARIN 1 MG TABLET Take half a pill every other * WARFARIN 3 MG TABLET 3mgs daily(Add 0.5 mgs to thi* CLINDAMYCIN 2 % VAGINAL CREAM Use 1 Applicatorful vaginally* TRAZODONE 50 MG TABLET Take 50 mg by mouth daily at * COMPOUNDED PRESCRIPTION Medical Van to transport to a* COMPOUNDED PRESCRIPTION PT/OT/ST at [facility]. POLYETHYLENE GLYCOL 3350 17 G* 17 grams daily ACETAMINOPHEN 500 MG TABLET Take 1 tablet by mouth every * Problem List As Of Date 03/19/2018 Noted Resolved Aneurysm, cerebral [I67.1] INVALID FOR* More... Hep C w/o coma, chronic (HCC) [B18.2] INVALID FOR* More... Stroke (HCC) [I63.9] INVALID FOR* More... 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 Tobacco abuse disorder [Z72.0] INVALID FOR* More... Hx of substance abuse [Z87.898] INVALID FOR* More... Attention to gastrostomy tube (HCC) [Z43.1] INVALID FOR* More... Encounter Status:Closed by KATHERINE GILLILAND on 03/19/18 PROGRESS Observed: 03/16/2018 Status: COMPLETED Source: [place] 2:14 PM [facility] REPOSITORY HNO ID: [id number] Author: Katherine Gilliland Service: (none) Author Type: Registered Nurse Type: Progress Notes Filed: 03/19/2018 12:00 PM Note Text: PRIMARY CARE COORDINATION FOLLOW-UP NOTE Provider Action/FYI: Rec'd med list from [facility] for rehab and Brain Injury. Will provide to LADAN to update med list. Patient identified by name and date of . YES Spoke to Olga Pritchett Summary: Pt was in facility in [place] and was released with prepackaged meds and is running out. Needs researched and find out her med list. Faxed request to [place] facility. Will await response. I called and spoke with someone and they stated the patient was D/C with a whole packet of info incl med list but she will fax a list to me now. Concerns: 2 hrs later I still have not received it. By end of day I rec'd 2 sets of notes. Will provide to Sheree PICKERING to update meds and will send to [facility] to prepackage as the family seems to have difficulty with her meds. Sequins Spooler plan for next outreach: Will follow up w/LADAN Monday. Signature Katherine Gilliland cosmetology educator Head Lineman Internal Medicine [facility] March 16, 2018 CNPTOUTREACH Observed: 03/16/2018 Status: COMPLETED Source: [place] 12:00 AM [facility] REPOSITORY Patient Outreach (INTMWS) DOREEN CASILLAS ([id number]) 1980 F BLD Date Time Provider Department 03/16/18 CORINNA IMHOF, KATHERINE INTMWS During your visit today, we recorded the following information about you: Katherine Lund RN 03/19/2018 12:00 PM Signed PRIMARY CARE COORDINATION FOLLOW-UP NOTE Provider Action/FYI: Rec'd med list from [facility] for rehab and Brain Injury. Will provide to LADAN to update med list. Patient identified by name and date of . YES Spoke to Olga Pritchett Summary: Pt was in facility in [place] and was released with prepackaged meds and is running out. Needs researched and find out her med list. Faxed request to [place] facility. Will await response. I called and spoke with someone and they stated the patient was D/C with a whole packet of info incl med list but she will fax a list to me now. Concerns: 2 hrs later I still have not received it. By end of day I rec'd 2 sets of notes. Will provide to Sheree PICKERING to update meds and will send to [facility] to prepackage as the family seems to have difficulty with her meds. Sequins Spooler plan for next outreach: Will follow up w/LADAN Monday. Signature Katherine Gilliland RN Ambulatory Head Lineman Internal Medicine [facility] March 16, 2018 Sheree Saucedo APRN.CNP 03/19/2018 12:00 PM Signed Patient was admitted to [facility] 10/11/16 d/t multiple strokes secondary to aneurysms. Sister, Hanane Casillas was appointe patient's legal guardian 01/2017. Listed phone number [phone], she resides in [place] according to admission documents. Patient was discharged 03/05/18 into the care of her mother in [place]. Med list reviewed and updated. Sheree Saucedo APRN.NIKKO Allergies As of Date: 03/16/2018 Noted Allergy Reaction BEE STING 04/26/2016 10 - Anaphylaxis Date Reviewed: 03/09/2018 Reviewed by: Love Price - Fully Assessed Reason for Visit: Head Lineman Chronic Care [7990] Visit Diagnosis:Seizure (HCC) [R56.9] Order(s):sertraline (ZOLOFT) 100 mg tabletTake 2 tablets by mouth once daily.Disp: Rfl: levETIRAcetam (KEPPRA) 500 mg tabletTake 1.5 tablets by mouth once daily.Disp: Rfl: warfarin (COUMADIN) 1 mg tabletTake 1 tablet by mouth once daily. Or as directedDisp: Rfl: melatonin 5 mg tabletTake 1 tablet by mouth daily at bedtime.Disp: Rfl: glecaprevir-pibrentasvir (MAVYRET) 100-40 mg tabTake 3 tablets by mouth once daily.Disp: Rfl: Prescriptions as of 03/16/2018 Sig: SERTRALINE 100 MG TABLET Take 2 tablets by mouth once * LEVETIRACETAM 500 MG TABLET Take 1.5 tablets by mouth onc* WARFARIN 1 MG TABLET Take 1 tablet by mouth once d* MELATONIN 5 MG TABLET Take 1 tablet by mouth daily * GLECAPREVIR 100 MG-PIBRENTASV* Take 3 tablets by mouth once * CLINDAMYCIN 2 % VAGINAL CREAM Use 1 Applicatorful vaginally* TRAZODONE 50 MG TABLET Take 50 mg by mouth daily at * COMPOUNDED PRESCRIPTION Medical Van to transport to a* WARFARIN 3 MG TABLET Take 3mg daily COMPOUNDED PRESCRIPTION PT[facility] POLYETHYLENE GLYCOL 3350 17 G* 17 grams daily ACETAMINOPHEN 500 MG TABLET Take 1 tablet by mouth every * Problem List As Of Date 03/16/2018 Noted Resolved Aneurysm, cerebral [I67.1] INVALID FOR* More... Hep C w/o coma, chronic (HCC) [B18.2] INVALID FOR* More... Stroke (HCC) [I63.9] INVALID FOR* More... 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 Tobacco abuse disorder [Z72.0] INVALID FOR* More... Hx of substance abuse [Z87.898] INVALID FOR* More... Attention to gastrostomy tube (HCC) [Z43.1] INVALID FOR* More... Prescriptions ordered this encounter Disp Refills Start End SERTRALINE 100 MG TABLET 03/19/2018 Class: Med Update Route: ORAL Sig: Take 2 tablets by mouth once daily. LEVETIRACETAM 500 MG TABLET 03/19/2018 Class: Med Update Route: ORAL Sig: Take 1.5 tablets by mouth once daily. WARFARIN 1 MG TABLET 03/19/2018 Class: Med Update Route: ORAL Sig: Take 1 tablet by mouth once daily. Or as directed MELATONIN 5 MG TABLET 03/19/2018 Class: Med Update Route: ORAL Sig: Take 1 tablet by mouth daily at bedtime. GLECAPREVIR 100 MG-PIBRENTASVIR 40 M* 03/19/2018 Class: Med Update Route: ORAL Sig: Take 3 tablets by mouth once daily. Medications Discontinued During This Encounter traMADol (ULTRAM) 50 mg tablet 60 t* 5 04/29/2016 03/19/2018 Class: Print RX Route: ORAL Sig: Take 1 tablet by mouth every 12 hours as needed for Pain. Disc: Reason for discontinue is not on file. lacosamide (VIMPAT) 100 mg tab 60 t* 5 04/29/2016 03/19/2018 Class: Print RX Route: ORAL Sig: Take 1 tablet by mouth twice daily. Disc: Reason for discontinue is not on file. cloNIDine HCl (CATAPRES) 0.1 mg tabl* 60 t* 6 04/29/2016 03/19/2018 Route: ORAL Sig: Take 1 tablet by mouth twice daily. Disc: Reason for discontinue is not on file. QUEtiapine (SEROQUEL) 25 mg tablet 60 t* 6 04/29/2016 03/19/2018 Route: ORAL Sig: Take 1 tablet by mouth twice daily. Disc: Reason for discontinue is not on file. prochlorperazine (COMPAZINE) 25 mg s* 20 S* 0 04/29/2016 03/19/2018 Route: RECTAL Si Suppository by RECTAL route every 12 hours as needed. Disc: Reason for discontinue is not on file. modafinil (PROVIGIL) 100 mg tablet 30 t* 0 04/29/2016 03/19/2018 Class: Print RX Route: ORAL Sig: Take 1 tablet by mouth once daily. Disc: Reason for discontinue is not on file. docusate sodium (DULCOLAX STOOL SOFT* 60 c* 6 04/29/2016 03/19/2018 Route: ORAL Sig: Take 1 capsule by mouth twice daily. Disc: Reason for discontinue is not on file. cloNIDine HCl (CATAPRES) 0.1 mg tabl* 60 t* 2 05/27/2016 03/19/2018 Route: ORAL Sig: Take 1 tablet by mouth twice daily. Disc: Reason for discontinue is not on file. warfarin (COUMADIN) 5 mg tablet 60 t* 5 05/25/2016 03/19/2018 Route: ORAL Sig: Take 1 tablet by mouth once daily. Disc: Reason for discontinue is not on file. melatonin 3 mg ODT 03/19/2018 Class: Historical Med Route: ORAL Sig: Take by mouth. Disc: Reason for discontinue is not on file. sertraline (ZOLOFT) 100 mg tablet 03/19/2018 Class: Historical Med Route: ORAL Sig: Take 100 mg by mouth once daily. Disc: Reason for discontinue is not on file. levETIRAcetam (KEPPRA) 500 mg tablet 60 t* 6 04/29/2016 03/19/2018 Route: ORAL Sig: Take 1 tablet by mouth twice daily. Disc: Reason for discontinue is not on file. glecaprevir-pibrentasvir (MAVYRET) 1* 03/19/2018 Class: Historical Med Route: ORAL Sig: Take by mouth. Disc: Reason for discontinue is not on file. Encounter Status:Closed by KATHERINE GILLILAND on 03/19/18 PROGRESS Observed: 03/15/2018 Status: COMPLETED Source: [place] 3:23 PM [facility] REPOSITORY HNO ID: [id number] Author: Love Sanders Psr Service: (none) Author Type: (none) Type: Progress Notes Filed: 03/15/2018 3:23 PM Note Text: Pap logged and normal pap letter mailed to patient. Love Sanders Psr HPV W/GENOTYPE Collected: 03/09/2018 Status: F Source: [place] 12:11 PM [facility] [place] REPOSITORY TYPE CODE TESTS RESULT OUT OF REFERENCE UNITS RANGE LAB HPVT16 HPV HighRisk Negative for Type 16 HPV DNA high risk type 16 by PCR. LAB HPVT18 HPV HighRisk Negative for Type 18 HPV DNA high risk type 18 by PCR. LAB HPVHRO HPV HighRisk Negative for Other HPV DNA high risk types: 31,33,35,39,45 ,51,52,56,58,5 9,66,68 by PCR. Result Comment: This test was developed and its performance characteristics determined by [facility] Ajay Barreto [facility] [place] ([facility]). It has not been cleared or approved by the FDA. [facility] is regulated under CLIA as qualified to perform high-complexity testing. This test is used for clinical purposes. It should not be regarded as inv estigational or for research. Performed By: #### HPVHRR #### [facility] [address] [place], [place] [address] CYTOLOGY Observed: 03/09/2018 Status: C Source: [place] 12:11 [facility] REPOSITORY ADDITIONAL PROCEDURES PRESENT Specimen originated from [facility] Specimen #: [id number] Submitting Physician: LOVE PRICE CNP SPECIMEN SUBMITTED A: CERVICAL, SCREENING, FLUID FINAL DIAGNOSIS A. CERVICAL, SCREENING, FLUID Satisfactory for interpretation. Negative for intraepithelial lesion or malignancy. Blood. This specimen has been analyzed by the TapFwdPrep Imaging System, an automated imaging and review system, which assists the laboratory in evaluating cells on ThinPrep Pap tests. Following automated imaging, selected lake from every slide are reviewed by a aviation medicine specialist. ARCELIA Arshad(ASCP) (Electronic Signature) ADDITIONAL PROCEDURE(S) HUMAN PAPILLOMA VIRUS Date Ordered: 03/12/2018 Date Reported: 03/13/2018 Procedure Results and Interpretation Negative for HPV DNA high risk type 16 by PCR. Negative for HPV DNA high risk type 18 by PCR. Negative for HPV DNA high risk types: 31,33,35,39,45,51,52,56,58,59,66,68 by PCR. This test was developed and its performance characteristics determined by [facility] [place] ([facility]). It has not been cleared or approved by the FDA. [facility] is regulated under CLIA as qualified to perform high-complexity testing. This test is used for clinical purposes. It should not be regarded as investigational or for research. CLINICAL DATA ROUTINE EXAM, HPV Testing: Yes, automatic HPV patients over 30 Date of Last Menstrual Period: 03/05/2018 STAINS A: CERVICAL, SCREENING, FLUID THIN PREP PUBLIC WELFARE DIRECTOR Bella Overton M.D., Mica Washer Gluer Date of Report: 03/15/2018 Date of Procedure: 03/09/2018 Date of Receipt: 03/12/2018 Submitted by: LOVE PRICE CNP Location: [facility] Diagnostic interpretation performed at [facility], [address] [place] [address]. The Pap Smear is a screening test for cervical cancer. False negative results occur with all screening tests, emphasizing the need for rescreening at recommended intervals, and clinical correlation. PROGRESS Observed: 03/09/2018 Status: COMPLETED Source: [place] 11:10 AM [facility] REPOSITORY HNO ID: [id number] Author: Love Price Service: (none) Author Type: Nurse Practitioner Type: Progress Notes Filed: 03/09/2018 12:18 PM Note Text: Raul Casillas is a 38 year old female who presents for problem visit Heavy periods. Mother with pt. 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 HPI: Regular menses at the first of the month lasting 7 days. Menses have gotten heavier over the past several months. First 3 days are heaviest. Uses tampons and pads due to bleeding through tampon. No cramping. Taking coumadin. Is not sexually active. Hep C positive. Used to have vaginal piercing but cannot find it. Has increased vaginal discharge. Pt's goal is to have no periods. PAST MEDICAL HISTORY Diagnosis Date - Aneurysm, cerebral 03/01/2016 x4 - Hep C w/o coma, chronic (HCC) - Stroke (HCC) PAST SURGICAL HISTORY Procedure Laterality Date - BRAIN AVM SURG,DURAL,COMPLX 03/01/2016 - S PK OPEN HEART [id number] 03/01/2015 FAMILY HISTORY Problem Relation Age of Onset - Hypertension Mother Social History Marital status: Single Spouse name: Years of education: Number of children: Occupational History Occupation Employer Comment disability Social History Main Topics Smoking status: Current Every Day Smoker Packs/day: 0.00 Years: 22.00 Types: Cigarettes Alcohol use: No Drug use: Yes Frequency: 1.0 time per week Types: Marijuana Comment: every day Sexual activity: Not Currently Current Outpatient Prescriptions: traZODone (DESYREL) 50 mg tablet Take 50 mg by mouth daily at bedtime. sertraline (ZOLOFT) 100 mg tablet Take 100 mg by mouth once daily. melatonin 3 mg ODT Take by mouth. cloNIDine HCl (CATAPRES) 0.1 mg tablet Take 1 tablet by mouth twice daily. warfarin (COUMADIN) 5 mg tablet Take 1 tablet by mouth once daily. COMPOUNDED PRESCRIPTION Medical Van to transport to and from [facility] for PT, OT, ST. warfarin (COUMADIN) 3 mg tablet Take 3mg daily COMPOUNDED PRESCRIPTION PT/OT/ST at [facility]. cloNIDine HCl (CATAPRES) 0.1 mg tablet Take 1 tablet by mouth twice daily. lacosamide (VIMPAT) 100 mg tab Take 1 tablet by mouth twice daily. traMADol (ULTRAM) 50 mg tablet Take 1 tablet by mouth every 12 hours as needed for Pain. QUEtiapine (SEROQUEL) 25 mg tablet Take 1 tablet by mouth twice daily. prochlorperazine (COMPAZINE) 25 mg suppository 1 Suppository by RECTAL route every 12 hours as needed. polyethylene glycol 3350 (MIRALAX) 17 gram/dose powder 17 grams daily modafinil (PROVIGIL) 100 mg tablet Take 1 tablet by mouth once daily. levETIRAcetam (KEPPRA) 500 mg tablet Take 1 tablet by mouth twice daily. docusate sodium (DULCOLAX STOOL SOFTENER, DSS,) 100 mg capsule Take 1 capsule by mouth twice daily. acetaminophen (TYLENOL EXTRA STRENGTH) 500 mg tablet Take 1 tablet by mouth every 6 hours as needed for Pain. No current facility-administered medications for this visit. Allergies As of Date: 03/09/2018 Allergen Noted Reaction BEE STING 04/26/2016 Anaphylaxis Fully Assessed 03/08/2018 REVIEW OF SYSTEMS Abdomen: No bloating, early satiety, indigestion, or increased flatulence. No abdominal pain, nausea, vomiting, diarrhea, or constipation. Bladder: No dysuria, gross hematuria, urinary frequency, urinary urgency, or incontinence. Allergies and current medication updated:Yes EXAM: BP 100/62 Wt 181 lb (82.1kg) LMP 03/05/2018 GENERAL: pleasant, female in no apparent distress CHEST: Normal inspiratory effort ABDOMEN: soft, non-tender and no masses PELVIC: external genitalia normal, normal Bartholin's glands, urethra, [place]'s glands, no vulvar lesions, no cervical lesions, good vaginal support, physiologic discharge present, normal appearing perineal body and perianal region, blood in vault BIMANUAL: uterus top normal size, no adnexal masses, non-tender and possible fibroid palpated posterior uterus NEURO: alert and oriented x3 ASSESSMENT/PLAN: 1. Menorrhagia with regular cycle - ICD9: 626.2, ICD10: N92.0 (primary diagnosis) ? enlarged uterus, fibroid - PELVIC US WHI - NEXPLANON INSERTION - discussed with pt and mother that using the Nexplanon would be low risk. If unsatisfactory, can move to Mirena IUD. 2. Pap smear for cervical cancer screening - ICD9: V76.2, ICD10: Z12.4 - PAP FLUID CERVICAL SCREENING 3. Special screening examination for human papillomavirus (HPV) - ICD9: V73.81, ICD10: Z11.51 - PAP FLUID CERVICAL SCREENING 4. Vaginal discharge - ICD9: 623.5, ICD10: N89.8 - BACT/MARIELA VAG GRAM STAIN Greater than 75% of 45 minute visit spent face to face counseling with patient and reviewing medical records. Will notify of results. Pt wanted vaginal piercing replaced - I was unable to determine piercing site and recommend that she have the piercing evaluated by reputable culinary artist. Will follow-up with Nexplanon insertion. Love Price APRN.CLAIM TECHNICIAN CNOV Observed: 03/09/2018 Status: COMPLETED Source: [place] 10:45 AM [facility] RE[facility]IT[facility] Office Visit (WOOB) DOREEN CASILLAS ([id number]) 1980 F BLD Date Time Provider Department 03/09/18 10:45 AM LOVE PRICE (NIKKO) WOOB During your visit today, we recorded the following information about you: Blood pressure Weight Last Period 100/62 82.1 kg 03/05/18 Love Price APRN.CLAIM TECHNICIAN 03/09/2018 12:18 PM Signed Raul Casillas is a 38 year old female who presents for problem visit Heavy periods. Mother with pt. 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 HPI: Regular menses at the first of the month lasting 7 days. Menses have gotten heavier over the past several months. First 3 days are heaviest. Uses tampons and pads due to bleeding through tampon. No cramping. Taking coumadin. Is not sexually active. Hep C positive. Used to have vaginal piercing but cannot find it. Has increased vaginal discharge. Pt's goal is to have no periods. PAST MEDICAL HISTORY Diagnosis Date - Aneurysm, cerebral 03/01/2016 x4 - Hep C w/o coma, chronic (HCC) - Stroke (HCC) PAST SURGICAL HISTORY Procedure Laterality Date - BRAIN AVM SURG,DURAL,COMPLX 03/01/2016 - S PK OPEN HEART [id number] 03/01/2015 FAMILY HISTORY Problem Relation Age of Onset - Hypertension Mother Social History Marital status: Single Spouse name: Years of education: Number of children: Occupational History Occupation Employer Comment disability Social History Main Topics Smoking status: Current Every Day Smoker Packs/day: 0.00 Years: 22.00 Types: Cigarettes Alcohol use: No Drug use: Yes Frequency: 1.0 time per week Types: Marijuana Comment: every day Sexual activity: Not Currently Current Outpatient Prescriptions: traZODone (DESYREL) 50 mg tablet Take 50 mg by mouth daily at bedtime. sertraline (ZOLOFT) 100 mg tablet Take 100 mg by mouth once daily. melatonin 3 mg ODT Take by mouth. cloNIDine HCl (CATAPRES) 0.1 mg tablet Take 1 tablet by mouth twice daily. warfarin (COUMADIN) 5 mg tablet Take 1 tablet by mouth once daily. COMPOUNDED PRESCRIPTION Medical Van to transport to and from [facility] for PT, OT, ST. warfarin (COUMADIN) 3 mg tablet Take 3mg daily COMPOUNDED PRESCRIPTION PT/OT/ST at [facility]. cloNIDine HCl (CATAPRES) 0.1 mg tablet Take 1 tablet by mouth twice daily. lacosamide (VIMPAT) 100 mg tab Take 1 tablet by mouth twice daily. traMADol (ULTRAM) 50 mg tablet Take 1 tablet by mouth every 12 hours as needed for Pain. QUEtiapine (SEROQUEL) 25 mg tablet Take 1 tablet by mouth twice daily. prochlorperazine (COMPAZINE) 25 mg suppository 1 Suppository by RECTAL route every 12 hours as needed. polyethylene glycol 3350 (MIRALAX) 17 gram/dose powder 17 grams daily modafinil (PROVIGIL) 100 mg tablet Take 1 tablet by mouth once daily. levETIRAcetam (KEPPRA) 500 mg tablet Take 1 tablet by mouth twice daily. docusate sodium (DULCOLAX STOOL SOFTENER, DSS,) 100 mg capsule Take 1 capsule by mouth twice daily. acetaminophen (TYLENOL EXTRA STRENGTH) 500 mg tablet Take 1 tablet by mouth every 6 hours as needed for Pain. No current facility-administered medications for this visit. Allergies As of Date: 03/09/2018 Allergen Noted Reaction BEE STING 04/26/2016 Anaphylaxis Fully Assessed 03/08/2018 REVIEW OF SYSTEMS Abdomen: No bloating, early satiety, indigestion, or increased flatulence. No abdominal pain, nausea, vomiting, diarrhea, or constipation. Bladder: No dysuria, gross hematuria, urinary frequency, urinary urgency, or incontinence. Allergies and current medication updated:Yes EXAM: BP 100/62 Wt 181 lb (82.1kg) LMP 03/05/2018 GENERAL: pleasant, female in no apparent distress CHEST: Normal inspiratory effort ABDOMEN: soft, non-tender and no masses PELVIC: external genitalia normal, normal Bartholin's glands, urethra, [employer] [place]'s glands, no vulvar lesions, no cervical lesions, good vaginal support, physiologic discharge present, normal appearing perineal body and perianal region, blood in vault BIMANUAL: uterus top normal size, no adnexal masses, non-tender and possible fibroid palpated posterior uterus NEURO: alert and oriented x3 ASSESSMENT/PLAN: 1. Menorrhagia with regular cycle - ICD9: 626.2, ICD10: N92.0 (primary diagnosis) ? enlarged uterus, fibroid - PELVIC US WHI - NEXPLANON INSERTION - discussed with pt and mother that using the Nexplanon would be low risk. If unsatisfactory, can move to Mirena IUD. 2. Pap smear for cervical cancer screening - ICD9: V76.2, ICD10: Z12.4 - PAP FLUID CERVICAL SCREENING 3. Special screening examination for human papillomavirus (HPV) - ICD9: V73.81, ICD10: Z11.51 - PAP FLUID CERVICAL SCREENING 4. Vaginal discharge - ICD9: 623.5, ICD10: N89.8 - BACT/MARIELA VAG GRAM STAIN Greater than 75% of 45 minute visit spent face to face counseling with patient and reviewing medical records. Will notify of results. Pt wanted vaginal piercing replaced - I was unable to determine piercing site and recommend that she have the piercing evaluated by reputable culinary artist. Will follow-up with Nexplanon insertion. Love Price APRN.NIKKO Sanders Psr 03/15/2018 3:23 PM Signed Pap logged and normal pap letter mailed to patient. Love Sanders Psr Referring Provider: CADE WICK [[id number]] Allergies As of Date: 03/09/2018 Noted Allergy Reaction BEE STING 04/26/2016 10 - Anaphylaxis Date Reviewed: 03/09/2018 Reviewed by: Love Price - Fully Assessed Primary Visit Diagnosis:Menorrhagia with regular cycle [N92.0] Other Visit Diagnoses:Pap smear for cervical cancer screening [Z12.4] Special screening examination for human papillomavirus (HPV) [Z11.51] Vaginal discharge [N89.8] Order(s):PELVIC US WHI [1107501] Order #: [id number]: 1 NEXPLANON INSERTION [[id number]] Order #: [id number] PAP FLUID CERVICAL SCREENING [[id number]] Order #: [id number]. #:[id number] BACT/MARIELA VAG GRAM STAIN [SQBVCNSM] Order #: [id number] FUTURE HPV W/GENOTYPE [SQHPVHRR] Order #: [id number]. #:[id number] Prescriptions as of 03/09/2018 Sig: POLYETHYLENE GLYCOL 3350 17 G* 17 grams daily LEVETIRACETAM 500 MG TABLET Take 1 tablet by mouth twice * ACETAMINOPHEN 500 MG TABLET Take 1 tablet by mouth every * GLECAPREVIR 100 MG-PIBRENTASV* Take by mouth. TRAZODONE 50 MG TABLET Take 50 mg by mouth daily at * SERTRALINE 100 MG TABLET Take 100 mg by mouth once alberto* MELATONIN 3 MG DISINTEGRATING* Take by mouth. CLONIDINE HCL 0.1 MG TABLET Take 1 tablet by mouth twice * WARFARIN 5 MG TABLET Take 1 tablet by mouth once d* COMPOUNDED PRESCRIPTION Medical Van to transport to a* WARFARIN 3 MG TABLET Take 3mg daily COMPOUNDED PRESCRIPTION PT/OT/ST at [facility]. CLONIDINE HCL 0.1 MG TABLET Take 1 tablet by mouth twice * LACOSAMIDE 100 MG TABLET Take 1 tablet by mouth twice * TRAMADOL 50 MG TABLET Take 1 tablet by mouth every * QUETIAPINE 25 MG TABLET Take 1 tablet by mouth twice * PROCHLORPERAZINE 25 MG RECTAL* 1 Suppository by RECTAL route* MODAFINIL 100 MG TABLET Take 1 tablet by mouth once d* DOCUSATE SODIUM 100 MG CAPSULE Take 1 capsule by mouth twice* Medication notes this encounter LEVETIRACETAM 500 MG TABLET >> Reilly Caldwell Ma 03/09/2018 11:14 AM >> REILLY CALDWELL MA Fri Mar 09, 2018 11:14 AM Problem List As Of Date 03/09/2018 Noted Resolved Aneurysm, cerebral [I67.1] INVALID FOR* More... Hep C w/o coma, chronic (HCC) [B18.2] INVALID FOR* More... Stroke (HCC) [I63.9] INVALID FOR* More... 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 Tobacco abuse disorder [Z72.0] INVALID FOR* More... Hx of substance abuse [Z87.898] INVALID FOR* More... Attention to gastrostomy tube (HCC) [Z43.1] INVALID FOR* More... Letter Text Love Pirce CNP [facility] [address], [place] [address] Doreen Casillas Jessica Nold Sujit [facility] [address] 03/15/2018 [facility]: [id number] Dear Doreen, We are pleased to inform you that your recent Pap Test was within normal limits. Because Pap tests are so effective in the early detection of cervical cancer, you are encouraged to continue having the test at regular intervals. You will be due for a 1 year Gynecological Exam after this date 03/09/2019. If you have any questions regarding the above information, do not hesitate to call our office at between the hours of 8:00 a.m. and 5:00 p.m. Sincerely, Love Price CNP Encounter Status:Closed by LOVE PRICE on 03/09/18 Observed: 03/09/2018 Status: F Source: [place] BACT/CAND VAG GRM ST 3:16 AM [facility] REPOSITORY Sp. Request/Comment: - Swab Smear Result - BACTERIAL VAGINOSIS RESULT: Stain results consistent with bacterial vaginosis. --> ABNORMAL ALERT No Yeast observed No Polymorphonuclear Leukocytes Performed By: #### BVCNSM #### [facility] [address] [place], [place] [address] CBC Collected: 03/08/2018 Status: F Source: [place] 2:52 PM [facility] REPOSITORY TYPE CODE TESTS RESULT OUT OF REFERENCE UNITS RANGE LAB WBC 3.70-11.00 k/uL WBC 5.32 LAB RBC 3.90-5.20 m/uL RBC 4.04 LAB HGB 11.5-15.5 g/dL Hemoglobin 12.4 LAB HCT 36.0-46.0 % Hematocrit 39.1 LAB MCV 80.0-100.0 fL MCV 96.8 LAB MCH 26.0-34.0 pG MCH 30.7 LAB MCHC 30.5-36.0 g/dL MCHC 31.7 LAB RDWCV 11.5-15.0 % RDW-CV 13.1 LAB PLTCT 150-400 k/uL Platelet Count 225 Result Comment: Result checked and verified No clot detected. LAB MPV 9.0-12.7 fL MPV High 13.2 LAB ABSNUC <0.01 k/uL Absolute nRBC <0.01 Performed By: #### CBC #### [facility] [address] [place], [place] [address] PROGRESS Observed: 03/08/2018 Status: COMPLETED Source: [place] 2:04 PM [facility] REPOSITORY HNO ID: [id number] Author: Sheree (Rn Integrated) Leonid Service: (none) Author Type: Nurse Practitioner Type: Progress Notes Filed: 03/09/2018 10:06 AM Note Text: CC: Patient presents with: Recheck: coumadin HPI Raul Casillas is a 38 year old female who presents today with mother for coumadin management and menorrhagia. 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 Mother present and contributed to majority of visit. Patient recently released from rehab facility- [facility] in [place]. Unclear reason for admission, she has since returned to [place] with her mother. She presents today for coumadin follow up and complaints of menorrhagia x2 days. Patient on coumadin therapy following heart valve replacement surgery x2?- previous medical records not available for review at this time. Coumadin was being managed in [place]. Currently on regimen of rotating 3mg and 3.5mg of coumadin every other day. INR 2.1 as of 03/06/18. Patient and mother uncertain of INR range, previous records except labs unavailable at this time will need to request. Patient has upcoming appointment with 03/19. Denies any abnormal bruising, notes intermittent bloody nose and heavy period with clots. Mother requesting nutrition consult for patient and self related to cardiac healthy diet and further education around foods rich in Vitamin K d/t coumadin therapy outside of what was discussed at today's visit. Menorrhagia- Menses started x2 days ago, patient reports bleeding through clothes yesterday with use of heavy flow tampon. Since has been wearing both a pad and tampon, changing 6-7x daily with noted clots. Patient reports periods are regular, beginning of every month, lasting ~7 days. Denies any abdominal or pelvic pains, urinary symptoms, dizziness, lightheadedness or syncope. REVIEW OF SYSTEMS General: no fevers, no chills, no night sweats, no recurrent infections, no change in appetite, no change in energy and no significant changes in weight HEENT: no frequent or significant headaches, no changes in hearing, no sinus or nasal problems, See HPI Respiratory: no cough, no wheezing, no shortness of breath, no hemoptysis GI: No nausea, vomiting, or diarrhea : No history of dysuria, frequency or incontinence PUBLIC WELFARE DIRECTOR: See HPI Hematologic/Lymph: See HPI PAST MEDICAL HISTORY Diagnosis Date - Aneurysm, cerebral 03/01/2016 x4 - Hep C w/o coma, chronic (HCC) - Stroke (HCC) PAST SURGICAL HISTORY Procedure Laterality Date - BRAIN AVM SURG,DURAL,COMPLX 03/01/2016 - S PK OPEN HEART [id number] 03/01/2015 ALLERGIES Bee Sting MEDICATIONS traZODone (DESYREL) 50 mg tablet Take 50 mg by mouth daily at bedtime. sertraline (ZOLOFT) 100 mg tablet Take 100 mg by mouth once daily. melatonin 3 mg ODT Take by mouth. cloNIDine HCl (CATAPRES) 0.1 mg tablet Take 1 tablet by mouth twice daily. warfarin (COUMADIN) 5 mg tablet Take 1 tablet by mouth once daily. COMPOUNDED PRESCRIPTION Medical Van to transport to and from [facility] for PT, OT, ST. warfarin (COUMADIN) 3 mg tablet Take 3mg daily COMPOUNDED PRESCRIPTION PT/OT/ST at [facility]. cloNIDine HCl (CATAPRES) 0.1 mg tablet Take 1 tablet by mouth twice daily. lacosamide (VIMPAT) 100 mg tab Take 1 tablet by mouth twice daily. traMADol (ULTRAM) 50 mg tablet Take 1 tablet by mouth every 12 hours as needed for Pain. QUEtiapine (SEROQUEL) 25 mg tablet Take 1 tablet by mouth twice daily. prochlorperazine (COMPAZINE) 25 mg suppository 1 Suppository by RECTAL route every 12 hours as needed. polyethylene glycol 3350 (MIRALAX) 17 gram/dose powder 17 grams daily modafinil (PROVIGIL) 100 mg tablet Take 1 tablet by mouth once daily. levETIRAcetam (KEPPRA) 500 mg tablet Take 1 tablet by mouth twice daily. docusate sodium (DULCOLAX STOOL SOFTENER, DSS,) 100 mg capsule Take 1 capsule by mouth twice daily. acetaminophen (TYLENOL EXTRA STRENGTH) 500 mg tablet Take 1 tablet by mouth every 6 hours as needed for Pain. FAMILY HISTORY Problem Relation Age of Onset - Hypertension Mother Social History Substance Use Topics - Smoking status: Current Every Day Smoker Years: 22.00 Types: Cigarettes - Smokeless tobacco: Not on file - Alcohol use No PHYSICAL EXAM BP 106/64 (BP Site: Left Arm, BP Position: Sitting, BP Cuff Size: Large Adult) Pulse 84 Resp 18 Wt 85.7 kg (189 lb) BMI 24.27 kg/m? General Appearance: in no acute distress, alert Pysch: mood and affect flat and restricted Skin: Skin color, texture, turgor normal for age; Lungs: lungs clear to auscultation. No wheezing, rhonchi, rales Heart: RRR without murmur, gallop, or rubs. No ectopy, Positive findings: mechanical/artificial heart sound Abdomen: Abdomen soft, non-tender. Bowel sounds normal. No masses, organomegaly DTAP,TDAP,TD(1 - Tdap) due on 2001 ONE PNEUMOVAX PRIOR TO AGE 65 due on 2001 PAP EVERY 5 YEARS due on 01/12/2012 HPV EVERY 5 YEARS due on 01/12/2012 INFLUENZA(1) due on 12/30/2017 ASSESSMENT/PLAN: 1. Menorrhagia with regular cycle - ICD9: 626.2, ICD10: N92.0 (primary diagnosis) - No acute or concerning exam findings. Will check CBC - Not a good candidate for OCPs d/t medical hx and current smoking status- strongly encouraged smoking cessation, patient state she is not giving that up since it is better than doing other drugs - Recommend patient document number of pads/tampons used daily and frequency of changing - CONSULT TO RAIL CAR OPERATOR - CBC - Will contact patient with laboratory results 2. 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 Will request records for review and clarification - Repeat INR in 1 week - Follow up with cardiology as planned 3. Encounter for monitoring Coumadin therapy - ICD9: V58.83, V58.61, ICD10: Z51.81, Z79.01 - As above, see #2 - PROTHROMBIN TIME/PT - CONSULT TO NUTRITION THERAPY Sheree Saucedo APRN.CNP Prescription instructions reviewed with patient as applicable. Potential red flag symptoms discussed with the patient. Reviewed appropriate action plan to take if red flag symptoms occur. Patient agreeable to treatment plan. CNOV Observed: 03/08/2018 Status: COMPLETED Source: [place] 2:00 PM [facility] REPOSITORY Office Visit (INTMWS) RAUL CASILLAS ([id number]) 1980 F BLD Date Time Provider Department 03/08/18 2:00 PM SHEREE SAUCEDO (NIKKO) INTMWS During your visit today, we recorded the following information about you: Pulse Respiration Blood pressure Weight 84/minute 18/minute 106/64 85.7 kg Sheree Saucedo APRN.CNP 03/09/2018 10:06 AM Signed CC: Patient presents with: Recheck: coumadin HPI Raul Espositoeleuterio is a 38 year old female who presents today with mother for coumadin management and menorrhagia. 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 Mother present and contributed to majority of visit. Patient recently released from rehab facility- [facility] in [place]. Unclear reason for admission, she has since returned to [place] with her mother. She presents today for coumadin follow up and complaints of menorrhagia x2 days. Patient on coumadin therapy following heart valve replacement surgery x2?- previous medical records not available for review at this time. Coumadin was being managed in [place]. Currently on regimen of rotating 3mg and 3.5mg of coumadin every other day. INR 2.1 as of 03/06/18. Patient and mother uncertain of INR range, previous records except labs unavailable at this time will need to request. Patient has upcoming appointment with 03/19. Denies any abnormal bruising, notes intermittent bloody nose and heavy period with clots. Mother requesting nutrition consult for patient and self related to cardiac healthy diet and further education around foods rich in Vitamin K d/t coumadin therapy outside of what was discussed at today's visit. Menorrhagia- Menses started x2 days ago, patient reports bleeding through clothes yesterday with use of heavy flow tampon. Since has been wearing both a pad and tampon, changing 6-7x daily with noted clots. Patient reports periods are regular, beginning of every month, lasting ~7 days. Denies any abdominal or pelvic pains, urinary symptoms, dizziness, lightheadedness or syncope. REVIEW OF SYSTEMS General: no fevers, no chills, no night sweats, no recurrent infections, no change in appetite, no change in energy and no significant changes in weight HEENT: no frequent or significant headaches, no changes in hearing, no sinus or nasal problems, See HPI Respiratory: no cough, no wheezing, no shortness of breath, no hemoptysis GI: No nausea, vomiting, or diarrhea : No history of dysuria, frequency or incontinence PUBLIC WELFARE DIRECTOR: See HPI Hematologic/Lymph: See HPI PAST MEDICAL HISTORY Diagnosis Date - Aneurysm, cerebral 03/01/2016 x4 - Hep C w/o coma, chronic (HCC) - Stroke (HCC) PAST SURGICAL HISTORY Procedure Laterality Date - BRAIN AVM SURG,DURAL,COMPLX 03/01/2016 - S PK OPEN HEART [id number] 03/01/2015 ALLERGIES Bee Sting MEDICATIONS traZODone (DESYREL) 50 mg tablet Take 50 mg by mouth daily at bedtime. sertraline (ZOLOFT) 100 mg tablet Take 100 mg by mouth once daily. melatonin 3 mg ODT Take by mouth. cloNIDine HCl (CATAPRES) 0.1 mg tablet Take 1 tablet by mouth twice daily. warfarin (COUMADIN) 5 mg tablet Take 1 tablet by mouth once daily. COMPOUNDED PRESCRIPTION Medical Van to transport to and from [facility] for PT, OT, ST. warfarin (COUMADIN) 3 mg tablet Take 3mg daily COMPOUNDED PRESCRIPTION PT/OT/ST [facility]. cloNIDine HCl (CATAPRES) 0.1 mg tablet Take 1 tablet by mouth twice daily. lacosamide (VIMPAT) 100 mg tab Take 1 tablet by mouth twice daily. traMADol (ULTRAM) 50 mg tablet Take 1 tablet by mouth every 12 hours as needed for Pain. QUEtiapine (SEROQUEL) 25 mg tablet Take 1 tablet by mouth twice daily. prochlorperazine (COMPAZINE) 25 mg suppository 1 Suppository by RECTAL route every 12 hours as needed. polyethylene glycol 3350 (MIRALAX) 17 gram/dose powder 17 grams daily modafinil (PROVIGIL) 100 mg tablet Take 1 tablet by mouth once daily. levETIRAcetam (KEPPRA) 500 mg tablet Take 1 tablet by mouth twice daily. docusate sodium (DULCOLAX STOOL SOFTENER, DSS,) 100 mg capsule Take 1 capsule by mouth twice daily. acetaminophen (TYLENOL EXTRA STRENGTH) 500 mg tablet Take 1 tablet by mouth every 6 hours as needed for Pain. FAMILY HISTORY Problem Relation Age of Onset - Hypertension Mother Social History Substance Use Topics - Smoking status: Current Every Day Smoker Years: 22.00 Types: Cigarettes - Smokeless tobacco: Not on file - Alcohol use No PHYSICAL EXAM BP 106/64 (BP Site: Left Arm, BP Position: Sitting, BP Cuff Size: Large Adult) Pulse 84 Resp 18 Wt 85.7 kg (189 lb) BMI 24.27 kg/m? General Appearance: in no acute distress, alert Pysch: mood and affect flat and restricted Skin: Skin color, texture, turgor normal for age; Lungs: lungs clear to auscultation. No wheezing, rhonchi, rales Heart: RRR without murmur, gallop, or rubs. No ectopy, Positive findings: mechanical/artificial heart sound Abdomen: Abdomen soft, non-tender. Bowel sounds normal. No masses, organomegaly DTAP,TDAP,TD(1 - Tdap) due on 2001 ONE PNEUMOVAX PRIOR TO AGE 65 due on 2001 PAP EVERY 5 YEARS due on 01/12/2012 HPV EVERY 5 YEARS due on 01/12/2012 INFLUENZA(1) due on 12/30/2017 ASSESSMENT/PLAN: 1. Menorrhagia with regular cycle - ICD9: 626.2, ICD10: N92.0 (primary diagnosis) - No acute or concerning exam findings. Will check CBC - Not a good candidate for OCPs d/t medical hx and current smoking status- strongly encouraged smoking cessation, patient state she is not giving that up since it is better than doing other drugs - Recommend patient document number of pads/tampons used daily and frequency of changing - CONSULT TO RAIL CAR OPERATOR - CBC - Will contact patient with laboratory results 2. 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 Will request records for review and clarification - Repeat INR in 1 week - Follow up with cardiology as planned 3. Encounter for monitoring Coumadin therapy - ICD9: V58.83, V58.61, ICD10: Z51.81, Z79.01 - As above, see #2 - PROTHROMBIN TIME/PT - CONSULT TO NUTRITION THERAPY Sheree Saucedo APRN.CLAIM TECHNICIAN Prescription instructions reviewed with patient as applicable. Potential red flag symptoms discussed with the patient. Reviewed appropriate action plan to take if red flag symptoms occur. Patient agreeable to treatment plan. Referring Provider: CADE WICK [[id number]] Allergies As of Date: 03/08/2018 Noted Allergy Reaction BEE STING 04/26/2016 10 - Anaphylaxis Date Reviewed: 03/08/2018 Reviewed by: Maryjo Peck LPN - Fully Assessed Reason for Visit: Recheck [92] Cmt: coumadin Primary Visit Diagnosis:Menorrhagia with regular cycle [N92.0] Other Visit Diagnoses:Heart valve replaced [Z95.2] Encounter for monitoring Coumadin therapy [Z51.81, Z79.01] Order(s):PROTHROMBIN TIME/PT [SQPT] Order #: [id number] FUTURE CONSULT TO NUTRITION THERAPY [9020] Order #: [id number]: 1 CONSULT TO RAIL CAR OPERATOR [90] Order #: [id number]: 1 CBC [SQCBC] Order #: [id number] FUTURE Prescriptions as of 03/08/2018 Sig: TRAZODONE 50 MG TABLET Take 50 mg by mouth daily at * SERTRALINE 100 MG TABLET Take 100 mg by mouth once alberto* MELATONIN 3 MG DISINTEGRATING* Take by mouth. CLONIDINE HCL 0.1 MG TABLET Take 1 tablet by mouth twice * WARFARIN 5 MG TABLET Take 1 tablet by mouth once d* COMPOUNDED PRESCRIPTION Medical Van to transport to a* WARFARIN 3 MG TABLET Take 3mg daily COMPOUNDED PRESCRIPTION PT/OT/ST at [facility]. CLONIDINE HCL 0.1 MG TABLET Take 1 tablet by mouth twice * LACOSAMIDE 100 MG TABLET Take 1 tablet by mouth twice * TRAMADOL 50 MG TABLET Take 1 tablet by mouth every * QUETIAPINE 25 MG TABLET Take 1 tablet by mouth twice * PROCHLORPERAZINE 25 MG RECTAL* 1 Suppository by RECTAL route* POLYETHYLENE GLYCOL 3350 17 G* 17 grams daily MODAFINIL 100 MG TABLET Take 1 tablet by mouth once d* LEVETIRACETAM 500 MG TABLET Take 1 tablet by mouth twice * DOCUSATE SODIUM 100 MG CAPSULE Take 1 capsule by mouth twice* ACETAMINOPHEN 500 MG TABLET Take 1 tablet by mouth every * Medication notes this encounter CLONIDINE HCL 0.1 MG TABLET >> Maryjo Peck [facility] 03/08/2018 1:34 PM >> MARYJO PECK LPN MonMar 08, 2018 1:34 PM Not taking CLONIDINE HCL 0.1 MG TABLET >> Maryjo Peck [facility] 03/08/2018 1:33 PM >> MARYJO PECK LPN MonMar 08, 2018 1:33 PM Not taking LACOSAMIDE 100 MG TABLET >> Maryjo Peck [facility] 03/08/2018 1:34 PM >> MARYJO PECK LPN Betsey Mar 08, 2018 1:34 PM Not taking TRAMADOL 50 MG TABLET >> Maryjo Peck [facility] 03/08/2018 1:45 PM >> MARYJO PECK LPN MonMar 08, 2018 1:45 PM Not taking QUETIAPINE 25 MG TABLET >> Maryjo Peck [facility] 03/08/2018 1:45 PM >> MARYJO PECK LPN Betsey Mar 08, 2018 1:45 PM Not taking PROCHLORPERAZINE 25 MG RECTAL SUPPOSITORY >> Maryjo Mulshanta GARVEY 03/08/2018 1:45 PM >> MARYJO PECK GURU Betsey Mar 08, 2018 1:45 PM Not taking MODAFINIL 100 MG TABLET >> Maryjobright Peck [employer]INE[employer] 03/08/2018 1:45 PM >> MARYJO PECK GURU Betsey Mar 08, 2018 1:45 PM Not taking LEVETIRACETAM 500 MG TABLET >> Maryjo Mulshanta [employer] SERVICE ENGINEER 03/08/2018 1:35 PM >> TURNER PECKLIE GURU Betsey Mar 08, 2018 1:35 PM Not taking >> Maryjo Mulshanta [employer] SERVICE ENGINEER 03/08/2018 1:47 PM >> MARYJO PECK GURU Betsey Mar 08, 2018 1:47 PM taking DOCUSATE SODIUM 100 MG CAPSULE >> Maryjo Peck X RAY SERVICE ENGINEER 03/08/2018 1:34 PM >> MARYJO PECK GURU Betsey Mar 08, 2018 1:34 PM Not taking Problem List As Of Date 03/08/2018 Noted Resolved Aneurysm, cerebral [I67.1] INVALID FOR* More... Hep C w/o coma, chronic (HCC) [B18.2] INVALID FOR* More... Stroke (HCC) [I63.9] INVALID FOR* More... 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 Tobacco abuse disorder [Z72.0] INVALID FOR* More... Hx of substance abuse [Z87.898] INVALID FOR* More... Attention to gastrostomy tube (HCC) [Z43.1] INVALID FOR* More... Encounter Status:Closed by SHEREE SAUCEDO CNP on 03/09/18 PROTIME Collected: 03/06/2018 Status: F Source: [place] 11:20 AM [facility] REPOSITORY TYPE CODE TESTS RESULT OUT OF RANGE REFERENCE UNITS LAB PSEC 9.7-13.0 sec High PT Sec 21.1 LAB INR 0.9-1.3 High PT INR 2.1 Result Comment: Vitamin K Antagonist (VKA) Therapeutic Range: INR 2 to 3 (Target INR of 2.5) Note: For patients treated with VKA drugs, such as warfarin, the [place] 2012 Guideline recommends a therapeutic INR range of 2 to 3 (target INR of 2.5). This recommendation includes high-risk patients with antiphospholipid syndrome with previous arterial or venous thromboembolism, current-generation mechanical or bioprosthetic aortic heart valve replacement. Note: Patients with mechanical aortic valve replacement and additional risk factors for thromboembolic events (atrial fibrillation, previous thromboembolism, LV dysfunction, hypercoagulable conditions) or an older generation mechanical AVR (i.e., ball in-Cage) or any mechanical MVR should have a INR therapeutic range of 2.5 to 3.5 (target INR of 3). Aaron TOLEDO, et al. Chest 2012, 141:7S-47S Tip RA, et al. [facility] 2017, 70: 252-289 Performed By: #### PT #### [facility] [address], [place] [address] PROGRESS Observed: 02/19/2018 Status: COMPLETED Source: [place] 4:11 PM [facility] REPOSITORY HNO ID: [id number] Author: Katherine Gilliland Service: (none) Author Type: Registered Nurse Type: Progress Notes Filed: 02/19/2018 4:37 PM Note Text: PRIMARY CARE COORDINATION FOLLOW-UP NOTE Provider Action/FYI Pt being released from [facility] in [place], [place]. Coming back to you..They will send D/C summary, etc. Patient identified by name and date of . YES Spoke to TRINIDAD Tejada from [facility] facility Summary: Pt has been in this rehab since September 2016. She is set for D/C 03/05/18 and needs F/U with a PCP within 2 wks of D/C. Since she had previously seen Dr. Wick, she was scheduled with her 03/19/18. Concerns: She requires ongoing behavioral as well as substance abuse counseling. I faxed them a list of the services provided in [employer] plan for next outreach: Will follow up after D/C Signature Katherine Gilliland RN Ambulatory [facility] February 19, 2018 CNPTOUTREACH Observed: 02/19/2018 Status: COMPLETED Source: [place] 12:00 AM [facility] REPOSITORY Patient Outreach (INTMWS) WARDRAUL ([id number]) 1980 F BLD Date Time Provider Department 02/19/18 KATHERINE RAMACHANDRAN INTMckayWS During your visit today, we recorded the following information about you: Katherine Lund RN 02/19/2018 4:37 PM Signed PRIMARY CARE COORDINATION FOLLOW-UP NOTE Provider Action/FYI Pt being released from [facility] facility in [place], [place]. Coming back to you..They will send D/C summary, etc. Patient identified by name and date of . YES Spoke to TRINIDAD Tejada from [facility] Injury rehab facility Summary: Pt has been in this rehab since September 2016. She is set for D/C 03/05/18 and needs F/U with a PCP within 2 wks of D/C. Since she had previously seen Dr. Wick, she was scheduled with her 03/19/18. Concerns: She requires ongoing behavioral as well as substance abuse counseling. 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 CLONIDINE HCL 0.1 MG TABLET Take 1 tablet by mouth twice * LACOSAMIDE 100 MG TABLET Take 1 tablet by mouth twice * TRAMADOL 50 MG TABLET Take 1 tablet by mouth every * QUETIAPINE 25 MG TABLET Take 1 tablet by mouth twice * PROCHLORPERAZINE 25 MG RECTAL* 1 Suppository by RECTAL route* POLYETHYLENE GLYCOL 3350 17 G* 17 grams daily MODAFINIL 100 MG TABLET Take 1 tablet by mouth once d* LEVETIRACETAM 500 MG TABLET Take 1 tablet by mouth twice * DOCUSATE SODIUM 100 MG CAPSULE Take 1 capsule by mouth twice* ACETAMINOPHEN 500 MG TABLET Take 1 tablet by mouth every * Problem List As Of Date 02/19/2018 Noted Resolved Aneurysm, cerebral [I67.1] INVALID FOR* More... Hep C w/o coma, chronic (HCC) [B18.2] INVALID FOR* More... Stroke (HCC) [I63.9] INVALID FOR* More... 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 Tobacco abuse disorder [Z72.0] INVALID FOR* More... Hx of substance abuse [Z87.898] INVALID FOR* More... Attention to gastrostomy tube (HCC) [Z43.1] INVALID FOR* More... Encounter Status:Closed by KATHERINE GILLILAND on 02/19/18 ALLERGIES ALLERGIES DATE TYPE / CODE NAME / CODE REACTION SEVERITY SOURCE 04/30/2018 Drug No Known Unknown [facility] Allergy/416 Allergies/F0 [facility] [id number](SNOM [id number](RXN Repository ED CT) ORM) 04/26/2016 Environ/420 BEE STING ANAPHYLAXIS [facility] [id number]([facility] [place] ED CT) Repository ENCOUNTERS ENCOUNTERS ADMIT/DISCHARGE ACCOUNT ADMITTING ENCOUNTER LOCATION SOURCE NUMBER CLASS 05/23/2018/05/23/19 [id number] Ambulatory [address] Repository 04/30/2018/05/03/19 [id number] Emergency [address] ing:ED Repository 04/26/2018/04/26/20 [id number] Ambulatory [address] ing:PT Repository 04/18/2018/04/18/20 [id number] Ambulatory [address] Repository 04/10/2018/04/10/20 [id number] Ambulatory [facility] [place] Repository 04/10/2018/04/10/20 [id number] Ambulatory [facility] [place] Repository 04/10/2018/04/10/20 [id number] Ambulatory [facility] [place] Repository 04/10/2018/04/11/20 [id number] Ambulatory [facility] [place] Repository 04/03/2018/04/04/20 [id number] Ambulatory [facility] [place] Repository 04/02/2018/04/02/20 [id number] Ambulatory [facility] [place] Repository 03/19/2018/03/20/20 [id number] Ambulatory [place] [place] Repository 03/09/2018/03/12/20 [id number] Ambulatory [place] [place] Repository 03/08/2018/03/08/20 [id number] Ambulatory [place] [facility] [place] Repository 03/08/2018/03/09/20 [id number] Ambulatory [place] [facility] [place] Repository 03/06/2018/03/06/20 [id number] Ambulatory [place] [facility] [place] Repository 03/06/2018/03/06/20 [id number] Ambulatory [place] [facility] [place] Repository PAYERS PAYERS ENCOUNTER GUARANTOR PAYER SUBSCRIBER SOURCE 04/30/2018 RAUL [id number] NOLD Insurance:CARESOURCEP CICERONEDOB: [facility] Number: [id number] [address]Aio: [phone] [id number] Repository [phone] () Date:2018-04-30 [address]ATTN: [place] [address]DY: 04/30/2018 Secondary NOT GIVENUNK Chris Insurance:SELF PAY [facility] Number: Effective Repository Date:2018-04-30 04/26/2018 RAUL [id number] NOLD Insurance:CARESOURCEP CICERONEDOB: [facility] Number: [id number] [address]Xxf: [phone] [id number] Repository [phone] () Date:2018-03-[address]ATTN: [place] [address]QJ: 04/26/2018 Secondary NOT GIVENUNK Chris Insurance:[facility]LF [facility]Y [facility] Effective Repository Date:2018-03-28
== END 2018-04-26 19:00 | disposition home or self-care (01) ==
LOC: PT 14:00
PROVIDERS: Family Provider Internal Medicine; PCP Internal Medicine; Referring Provider Internal Medicine; Visit Provider Internal Medicine
DX: I69.311 Memory deficit following cerebral infarction (principal)
CPT/HCPCS: 92523; 97110; 97162

== ENCOUNTER 2018-04-30 19:24 | Emergency (ER) | payer MEDICAID, SELFPAY ==
[2018-04-30 19:27] VITALS: BP 119/79; PULSE 93; RESP 18; TEMP 36.7; O2SAT 99; BMI 24.3
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
[2018-04-30] MEDS: Ziprasidone IM 20 MG/ML VIAL 10 MG IM (20:05)
--- NOTE | 2018-04-30 20:36 | ED.VISSUMM ---
- ER Visit Summary Date of Service: 04/30/18 Chief Complaint: Agitation History of Present Illness: The patient is a 38 F presenting with mother for agitation. Patient is refusing to answer questions on arrival. Her mother states that she has stated that she will kill herself with heroin. Patient states that she just wants to be admitted to a mental hospital. She refuses to answer any questions regarding this. She is currently living with her mother. Her mother states she has said that she wants to do heroin so she can . Physical Examination: Vitals are stable. Patient is afebrile. Alert no acute distress. HEENT exam is unremarkable. Neck is supple. Lungs are clear and equal bilaterally. Heart is regular rate and rhythm. Abdomen is soft nontender nondistended. Extremities are unremarkable. Skin is warm and dry. No focal neurologic deficit. Agitated Remainder of exam is unremarkable. Emergency Department Course and Treatment: Patient was given Geodon IM. She was initially placed in restraints. When calm and cooperative restraints were removed. CBC, chemistries unremarkable. INR is 1.7. Alcohol is negative. Tox is pending. Will discuss with the counseling center for evaluation. Disposition: per counseling center Impression: Suicidal ideation, agitation This note was generated with [employer] dictation software. It may contain incorrect words, spelling, and punctuation that were not noted in review of the chart prior to signing ED Disposition - Plan for ED Patient: Chief Complaint: Mental Health Referrals: Anca Philippe MD [Primary Care Provider] -
[2018-04-30 21:57] LABS: Absolute Neutrophil Count 2.3 X10^3/uL (2.0-7.7); Basophil# 0.02 X10^3/uL; Basophil% 0.4 % (0-1); Eosinophil# 0.12 X10^3/uL; Eosinophils% 2.5 % (0-5); Hematocrit 34.1 % (37-47); Hemoglobin 11.5 g/dl (12.0-15.0); Lymphocyte % 40.3 % (19-41); Mean Corp Hgb Conc 33.7 g/gl (32-36); Mean Corpuscular Hgb 30.7 pg (27.0-32.0); Mean Corpuscular Volume 90.9 fL (81-99); Mean Platelet Vol. 12.5 fl (6.2-12.0); Monocyte# 0.41 X10^3/uL; Monocyte% 8.7 % (0-10); Neutrophil # 2.26 X10^3/uL (2.7-7.7); Neutrophil % 47.9 % (47-70); POSITIVE COUNT NO; POSITIVE DIFFERENTIAL NO; POSITIVE MORPHOLOGY NO; Platelet Count 200 K/mm3 (150-450); RBC Distribution Width SD 46.5 fl (35.1-43.9); Red Blood Count 3.75 M/mm3 (4.2-5.4); White Blood Count 4.7 K/mm3 (4.4-11.0)
[2018-04-30 22:05] LABS: International Normalized Ratio 1.7; Prothrombin Time (Protime)PT. 20.1 SECONDS (11.7-14.9)
[2018-04-30 22:22] LABS: Alcohol, Blood (Medical)-Serum < 3.0 mg/dL
[2018-04-30 22:24] VITALS: BP 116/78; PULSE 78; RESP 15; O2SAT 99
[2018-04-30 22:26] LABS: Anion Gap 10 (5-15); BUN 15 mg/dL (7-18); BUN/Creat Ratio 19.6 RATIO (10-20); Calcium,Total 8.6 mg/dL (8.5-10.1); Chloride 112 mmol/L (98-107); Creatinine, Serum 0.77 mg/dL (0.55-1.02); EST Glomerular Filtration Rate 91 mL/min (>60); Est Glom Filt Rate - Afr Amer 110 mL/min (>60); Estimated Creatinine Clearance 120.23 ml/min; Glucose 83 mg/dL (74-106); Potassium 3.5 mmol/L (3.5-5.1); Sodium Level 145 mmol/L (136-145)
[2018-04-30 22:31] LABS: Amphetamine Urine VISTA NEGATIVE (<1000 ng/mL); Barbiturate Urine VISTA NEGATIVE (< 200 ng/mL); Benzodiazepine Urine VISTA NEGATIVE (< 200 ng/mL); Cocaine Urine VISTA NEGATIVE (< 300 ng/mL); Ecstacy Urine VISTA NEGATIVE (< 500 ng/mL); Methadone Urine VISTA NEGATIVE (< 300 ng/mL); PCP Urine VISTA NEGATIVE (< 25 ng/mL); THC Urine VISTA POSITIVE (< 50 ng/mL); Vista UDS pH Range 6
[2018-04-30 22:33] LABS: Pregnancy, Serum, hCG Quali. NEGATIVE Negative (0-9 Nonpreg)
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
--- NOTE | 2018-04-30 22:42 | ED.RN ---
2200: AFTER REMOVING WRISTS ONE AT A TIME AND PT BEING VERY CALM, POLITE AND APOLOGETIC; REMAINING ANKLE RESTRAINTS REMOVED. PT COOPERATIVE WITH BLOOD DRAW AND UP TO BR. PT PROVIDED WITH MEAL.
[2018-04-30 22:55] VITALS: RESP 15
--- NOTE | 2018-04-30 23:29 | ED.RN ---
Addendum entered by Buzz Harper 04/30/18 23:38: HERE Original Note: SHUKRI FROM [facility]ISIS IS HARJIT TO REPLACE GARRET FROM CRISIS. SHUKRI IS AWARE THAT THIS PT NEEDS TO BE SEEN.
[2018-05-01] VITALS (18 sets, daily range): BP systolic 90–124; BP diastolic 54–73; PULSE 69–97; RESP 12–16; O2SAT 95–100
--- NOTE | 2018-05-01 01:24 | ED.RN ---
SHUKRI FROM [facility]ISIS IS SEEING THIS PT.
[2018-05-01] MEDS: QUEtiapine 25 MG Tablet PO (01:47)
[2018-05-01] MEDS: traZODone 100 MG Tablet PO (01:48)
[2018-05-01] MEDS: levETIRAcetam 1,000 MG Tablet 1000 MG PO ×2 (01:48→22:11)
--- NOTE | 2018-05-01 10:52 | ED.RN ---
ATTEMPTED TO GIVE PT AM MEDS, STS I AM NOT TAKING ANYTHING THAT I DONT KNOW WHAT IT IS. STS ONLY TAKES KEPPRA 500 MG IN AM AND 1000 MG AT NIGHT, AND BLOOD THINNER. WILL REDO MEDICATION LIST BASED ON PT'S STATEMENT.
[2018-05-01] MEDS: levETIRAcetam 500 MG Tablet PO (11:25)
--- NOTE | 2018-05-01 11:46 | ED.RN ---
ADDRESSED COUMADIN, PT/INR LEVEL OF 1.[address] GREENBERG DOES NOT WANT TO DO A BLOOD DRAW AT THIS TIME, BUT DOES WANT TO CONTINUE NORMAL COUMADIN DOSES OF 4 MG QOD AND 3 MG QOD. ORDER ENTERED DIRECTED.
--- NOTE | 2018-05-01 11:47 | ED.RN ---
MEDICATION LIST UPDATED PER PT'S REQUEST TO ONLY BE GIVEN KEPPRA AND COUMADIN, DESPITE HAVING RECENTLY FILLED MEDS ACCORDING TO EXTERNAL PHARMACY.
[2018-05-01] MEDS: Ziprasidone IM 20 MG/ML VIAL 10 MG IM (15:07)
--- NOTE | 2018-05-01 15:10 | ED.RN ---
PT REQUESTS GEODON INJECTION, FEEL LIKE SHE IS GETTING MORE AGITATED. MD ORDERED AND MED GIVEN. PT RESTING QUIETLY IN BED WATCHING TV. DENIES FURTHER NEEDS.
--- NOTE | 2018-05-01 16:46 | ED.RN ---
PT'S MOTHER BROUGHT SNACKS FOR PT-THIS RN EXAMINED ALL SNACK, ALL WERE FOUND SAFE, FINGER FOODS. MAXI PADS BROUGHT WELL.
--- NOTE | 2018-05-01 19:50 | EKG12_ITS ---
Test Reason : Blood Pressure : / mmHG Vent. Rate : 084 BPM Atrial Rate : 084 BPM P-R Int : 180 ms QRS Dur : 086 ms QT Int : 376 ms P-R-T Axes : 040 094 069 degrees QTc Int : 444 ms Normal sinus rhythm Possible Left atrial enlargement Rightward axis Borderline ECG Confirmed by VIKAS HOU, DAVID ([id number]), acquisitions editor EMILI GAMA ([id number] on 05/08/2018 10:50:29 AM Referred By: LADONNA Confirmed By:DAVID BEAN MD
--- NOTE | 2018-05-01 19:51 | ED.RN ---
[facility] CALLED REQUESTING ADDITIONAL TESTING AT THIS TIME FOR ADMISSION. TESTS ORDERED AT THIS TIME
--- NOTE | 2018-05-01 19:53 | ED.RN ---
no old ekg's in muse
[2018-05-01 20:28] LABS: AST(SGOT) 17 U/L (15-37); Alanine Aminotransfer ALT/SGPT 16 U/L (13-56); Albumin, Serum 3.7 g/dL (3.2-5.0); Alkaline Phosphatase 63 U/L (45-117); Bilirubin, Direct 0.08 mg/dL (0.00-0.30); Globulin 3.4 g/dL (2.2-4.2); Protein, Total 7.1 g/dL (6.4-8.2)
[2018-05-01 21:18] LABS: Mucous, Urine 0 SEEN /hpf (<or=2+); White Blood Cells 0 SEEN /hpf (0-5)
[2018-05-01 21:20] LABS: Color, Urine Yellow (Yellow); Glucose, Dipstick Normal (Normal); Ketone-Dipstick Negative (Negative); Leukocyte Esterase-Dipstick Negative /ul (Negative); Nitrite-Dipstick Negative (Negative); Occult Blood-Urine 250 /ul (Negative); Protein-Dipstick Negative (Negative); Urine Bilirubin Dipstick Negative (Negative); Urine Clarity Sl. Cloudy (Clear); Urine Urobilinogen Normal (Normal)
[2018-05-01 21:25] LABS: Bacteria RARE /hpf (None Seen); Red Blood Cells-Urine 0-5 SEEN /hpf (0-5); Squamous Epithelial Cells - UA 0-5 SEEN /hpf (5-10)
[2018-05-01] MEDS: Ibuprofen 600 MG Tablet PO (22:11)
[2018-05-01] MEDS: DiphenhydrAMINE 25 MG Capsule PO (22:48)
[2018-05-01] MEDS: LORazepam 1 MG Tablet PO (22:48)
[2018-05-02] VITALS (19 sets, daily range): BP systolic 93–150; BP diastolic 54–90; PULSE 64–87; RESP 13–18; O2SAT 94–100
[2018-05-02] MEDS: Ziprasidone IM 20 MG/ML VIAL 10 MG IM ×3 (07:56→19:21)
--- NOTE | 2018-05-02 09:41 | NURSING ---
CALLED [facility] FOR UPDATE. TALKED TO ERNESTO. SHE WILL CALL US BACK
--- NOTE | 2018-05-02 10:42 | ED.RN ---
khris ordered for this am. pt dose for this am was documented --yesterday dose documented as given today.. not given.
[2018-05-02] MEDS: levETIRAcetam 500 MG Tablet PO (10:48)
--- NOTE | 2018-05-02 10:56 | NURSING ---
PER NICHOLE OROZCO, PATIENT'S CHART UP FOR MEDICAL REVIEW OF 455 THIS AM
[2018-05-02] MEDS: LORazepam 1 MG Tablet 2 MG PO (12:11)
--- NOTE | 2018-05-02 12:19 | ED.RN ---
pt becoming more and more agitated.this rn attempts to calm pt. pt requesting guardianship be changed. attrempt to discuss with pt. pt voice raising. pt pacing. pt asks for mathieu. talked with .. pt aware too early for that med. ativan 2 mg po given
--- NOTE | 2018-05-02 12:58 | ED.RN ---
pt tearful. mother at bedside. pt pacing. belongins brought in by mother. tagged and removed from room
--- NOTE | 2018-05-02 13:25 | NURSING ---
PER ERNESTO, NICHOLE. [facility] DENIED PATIENT. SHE WILL RETRY HOSPITALS THAT WERE FULL YESTERDAY
--- NOTE | 2018-05-02 15:40 | ED.RN ---
pt makes statement that if dc'd from here or sent from rehab she will kill herself by overdosing on heroin. dr bean
--- NOTE | 2018-05-02 16:08 | ED.RN ---
1 to 1 sitter at bedside
--- NOTE | 2018-05-02 20:32 | ED.RN ---
AT 1730 PT REPORTS TO THIS RN THAT SHE TAKES 4MG OF COUMADIN EVERYDAY, INITIALLY ORDERED 3MG. DR. MADDOX INFORMED. ORDER CHANGED VERBAL ORDER FROM DR. MADDOX.
--- NOTE | 2018-05-02 21:54 | ED.RN ---
PER [facility], BRIAN TO TAKE CASE TO MEETING IN THE MORNING TO DETERMINE PLACEMENT AND IF FURTHER ACTIONS ARE NEEDED
[2018-05-02] MEDS: levETIRAcetam 1,000 MG Tablet 1000 MG PO (23:00)
--- NOTE | 2018-05-02 23:47 | ED.RN ---
PER GARRET CRISIS COUNSELOR PT HAS BEEN REFUSED AT ALL FACILITIES IN AREA. [place] IS TO CONTACT THE AIRFRAME AND POWERPLANT MECHANIC TOMORROW REGAURDING PT CHART. PT SLEEPING. RESPIRES EVEN AND UNLABORED. SITTER AT BEDSIDE.
[2018-05-03] VITALS (18 sets, daily range): BP systolic 94–112; BP diastolic 50–78; PULSE 62–88; RESP 12–20; O2SAT 94–100
[2018-05-03] MEDS: Ziprasidone IM 20 MG/ML VIAL 10 MG IM ×3 (04:12→21:40)
--- NOTE | 2018-05-03 07:18 | ED.RN ---
PT REQUESTING KEDAVIDRA WITH BREAKFST. TAKEN IN WITH [facility] PT DECLINING AT THIS TIME. REQUESTING GEODON, DR MARRUFO ORDERED SCHEDULED GEODON NOT TO EXCEED MAX DAILY DOSE. REINFORCED WITH WITH PT.
[2018-05-03] MEDS: levETIRAcetam 500 MG Tablet PO (10:31)
--- NOTE | 2018-05-03 10:40 | ED.RN ---
TALKED OT SHUKRI KAN. THEY HEARD FROM [facility] AND SHE IS STILL NOT EXCEPTED. SHUKRI IS TRYING TO GET AHOLD OF THE GUARDIAN
--- NOTE | 2018-05-03 12:46 | ED.RN ---
TALKED TO SHUKRI LOZOYA FROM CRISIS. HE STILL HASNT BEEN ABLE TO GET AHOLD OF THE PATIENTS GUARDIAN WHO LIVES IN [place].
[2018-05-03] MEDS: Nicotine Polacrilex 2 MG GUM PO (13:39)
--- NOTE | 2018-05-03 16:01 | ED.RN ---
[facility] called hours ago and said that they were trying to contact pts guardian. pt guardian is in [place]. pt is wanting us to call dad to come pick her up. per carmen she will get lola involved and get the state involved to get her placed. carmen was advised that the pink slip needs to be updated.
--- NOTE | 2018-05-03 16:35 | CM.ED ---
Social Work Note Approached by ED Director, Yaima Garcia, to see if anything could be moved along faster as pt is approaching 3 days at [facility]. Spoke with day care worker, Janell that was present, who states that Mary Lou Crenshaw, day care worker, is working on this case. Placed call to Jessica Nur, the crisis director and left a vm inquiring if anything could be moved along faster or the pt could be reevaluated d/t the length of stay and inability to place pt at this time. Will await a return phone call. Shannan De La Fuente, FIRE PREVENTION SPECIALIST, RICHARD
--- NOTE | 2018-05-03 16:55 | CM.ED ---
Social Work Note Return phone call from Jessica Nur, with [facility]. States that she reached out to the [facility], and has not heard back. Unsure if they are closed today. States that Mary Lou Crenshaw, was able to reach the guardian today who states that the pt was in a TBI rehab unit in [place], but complained to her mother, who eventually went and got her on 03/05/18 and brought her back here. Jessica inquires about placement and what that requires, and inform that we would first have to find an accepting facility (most will not accept until a pt has been sitter free for 24 hours) and then she would likely have to be placed on a unit under observation while we awaited a pre-cert. Per Jessica there is a facility that accepts TBI pt's in [place]. States that [place] is being unhelpful and states that even if the pt is probated they can deny if the pt is not appropriate for their facility. States that despite the physicians stating the pt is medically stable, the physicians at the [facility] are stating she is not d/t 3 aneurysms. Jessica will be working tomorrow. This bid writer to contact Jessica tomorrow after contacting [employer]PS once open to see if there is any obligation of the guardian to get the pt. SW to continue to follow and assist as needed. CURT Graham, RICHARD
[2018-05-03 20:49] LABS: International Normalized Ratio 1.6
--- NOTE | 2018-05-03 22:00 | ED.RN ---
SUICIDE PRECAUTIONS DISCONTINUED AT THIS TIME. PT BELONGINGS RETURNED TO PT
[2018-05-03] MEDS: levETIRAcetam 1,000 MG Tablet 1000 MG PO (22:18)
--- NOTE | 2018-05-03 22:18 | ED.DCSUM_ITS ---
- ER Visit Summary Date of Service: 05/03/18 Chief Complaint: [] History of Present Illness: The patient is a 38 F [] Physical Examination: [] Test Results: [] Emergency Department Course and Treatment: [] Treatment Plan: [] Disposition: [] Impression: [] This note was generated with [employer] dictation software. It may contain incorrect words, spelling, and punctuation that were not noted in review of the chart prior to signing ED Disposition - Plan for ED Patient: Disposition: Home or Assisted Living Chief Complaint: Mental Health Diagnosis: Schizophrenia Instructions: ED Schizophrenia General Referrals: Anca Philippe MD [Primary Care Provider] -
--- NOTE | 2018-05-03 22:33 | ED.RN ---
FATHER IN TO SEE PT. PT HAPPY TO SEE FATHER, GREETS HIM WITH HUGS AND LAUGHTER. FATHER STATES TO THIS RN HE HAS TALKED TO HIS COMPARATIVE SOCIOLOGY PROFESSOR EARLIER TODAY TO START THE PROCESS OF BECOMING PT'S LEGAL GUARDIAN. FATHER STATES HE IS WILLING TO TAKE FULL RESPONSIBILITY OF PT'S MENTAL AND PHYSICAL WELFARE, STATES SHE WILL LIVE WITH HIM AND HE WILL PROVIDE FOR ALL HER NEEDS, INCLUDING TRANSPORTATION TO ALL HER COUNSELING AND THERAPY APPTS. PT VOICES THAT SHE WANTS FATHER TO BE HER LEGAL GUARDIAN, WILL LIVE WITH HIM. CRISIS COUNSELOR AND MD MADE AWARE.
== END 2018-05-03 22:38 ==
PROVIDERS: Emergency Medicine; Emergency Provider Emergency Medicine; Family Provider Internal Medicine; PCP Internal Medicine
DX: R45.851 Suicidal ideations (principal); R45.1 Restlessness and agitation
CPT/HCPCS: 80048; 80076; 80307; 80320; 81001; 84703; 85025; 85610; 93005; 96372; 99284; G0480; J3486

== ENCOUNTER 2018-11-13 22:55 | Emergency (ER) | payer MEDICAID, SELFPAY ==
[2018-11-13 23:16] VITALS: BP 102/77; PULSE 108; RESP 22; TEMP 36.6; O2SAT 99; BMI 22.3
--- NOTE | 2018-11-13 23:41 | RAD_ITS ---
STUDY: X-RAY - RIGHT FOOT CLINICAL: Female, 38 years old. Fall. Right foot pain TECHNIQUE: 3 view(s) of the foot. COMPARISON: None. FINDINGS: Normal talus, calcaneus, and tarsal bones. Normal visualized subtalar, talonavicular, calcaneocuboid, tarsal and tarsometatarsal articulations. Normal metatarsi. Normal metatarsophalangeal joint of the great toe. Normal tibial and fibular sesamoid bones. Normal interphalangeal joint of the great toe. Normal phalanges of the great toe. Normal second through fifth metatarsophalangeal joints. Normal interphalangeal joints and phalanges of the lesser toes. The soft tissue structures are unremarkable. RAD/Foot min 3 Views IMPRESSION: Normal x-ray examination of the foot. Electronically Signed: Poonam Mccloud, at 0:27 EDT Tel , Service support ,
--- NOTE | 2018-11-13 23:42 | ED.VISSUMM ---
- ER Visit Summary Date of Service: 11/13/18 Chief Complaint: Fall, right foot pain History of Present Illness: The patient is a 38 F who presents with right foot pain. She normally wears a brace however she was not wearing it at the time. She inverted her right foot and complains of pain along the lateral side of her right foot. She also has some bruising near her toes. She also complains of a rash to her arms which is itching. She is currently staying at the [facility]. She otherwise denies any recent illness. Physical Examination: Afebrile heart rate 108 vitals otherwise unremarkable No distress Heart regular rhythm Lungs clear Patient has some bruising of the right foot near the base of the second through fourth digits she has active full range of motion no deformity easily palpable dorsalis pedis pulse brisk capillary refill normal sensation light touch no focal bony tenderness Test Results: Right foot x-ray is normal Emergency Department Course and Treatment: Patient was given naproxen for pain. Her bites are consistent with possible insect or bug bites. She was advised to use Benadryl for itching. X-ray normal. Patient was advised on supportive care for her right foot sprain. She was advised on rest ice elevation. She understands return for new or worsening symptoms otherwise to follow-up as an outpatient as needed. Treatment Plan: [] Disposition: Discharge Impression: Right foot sprain This note was generated with [employer] dictation software. It may contain incorrect words, spelling, and punctuation that were not noted in review of the chart prior to signing ED Disposition - Plan for ED Patient: Referrals: Anca Philippe MD [Primary Care Provider] -
[2018-11-13] MEDS: Naproxen 500 MG Tablet PO (23:47)
--- NOTE | 2018-11-14 00:32 | ED.DEP ---
ED Disposition - Plan for ED Patient: Instructions: Sprain Foot Referrals: Anca Philippe MD [Primary Care Provider] -
== END 2018-11-14 00:46 | disposition home or self-care (01) ==
PROVIDERS: Emergency Provider Emergency Medicine; Family Provider Internal Medicine; PCP Internal Medicine
DX: S93.601A Unspecified sprain of right foot, initial encounter (principal); R21 Rash and other nonspecific skin eruption; X58.XXXA Exposure to other specified factors, initial encounter; Y93.9 Activity, unspecified; Y92.89 Other specified places as the place of occurrence of the external cause; Y99.9 Unspecified external cause status; Z72.0 Tobacco use; G40.909 Epilepsy, unspecified, not intractable, without status epilepticus
CPT/HCPCS: 73630; 99283

== ENCOUNTER 2018-12-08 14:44 | Emergency (ER) | payer MEDICAID, SELFPAY ==
[2018-12-08 14:45] VITALS: BP 109/69; PULSE 96; RESP 16; TEMP 36.6; O2SAT 99; BMI 22.0
--- NOTE | 2018-12-08 15:04 | ED.VISSUMM ---
- ER Visit Summary Date of Service: 12/08/18 Chief Complaint: Left groin pain History of Present Illness: The patient is a 38 F who presents with pain in her left groin that is been getting worse over the past 3 days. Patient states the pain waxes and wanes. Patient states pain is worse with ambulating and better with rest. Patient denies any paresthesias or weakness. Patient denies any falls or injuries. Patient states she wears a brace on her right leg and has to go up and down a lot of steps. The patient states the pain is worse with certain movements of her left hip. Physical Examination: Vital signs are stable. Patient is afebrile. Patient is in no acute distress. Musculoskeletal exam reveals tenderness in the left inguinal area. There is no edema or ecchymosis. There is no bony crepitance or step-off. There is pain with internal and external rotation of the left hip. There is pain with resistive flexion of the left hip. There is no pain with resistive adduction. Pedal pulses are equal bilaterally. There is no calf tenderness. There is no edema noted. Sensation was intact to light touch bilaterally. Test Results: X-rays of the left hip were obtained. There is no acute fracture. This was interpreted by the radiologist and myself. Emergency Department Course and Treatment: Patient was advised that this most likely muscular strain. Patient was instructed to use ice to the area. Patient was instructed to use Tylenol as needed for pain. Patient was instructed to follow-up with her primary care physician in 5 to 7 days. Patient understood and was agreeable with the plan. All questions were answered. Disposition: Discharge home Impression: Left inguinal muscle strain This note was generated with [employer] dictation software. It may contain incorrect words, spelling, and punctuation that were not noted in review of the chart prior to signing ED Disposition - Plan for ED Patient: Disposition: Home or Assisted Living Diagnosis: Strain of left inguinal muscle Instructions: Hip Strain Referrals: Anca Philippe MD [Primary Care Provider] - 5-7 Days
--- NOTE | 2018-12-08 15:30 | RAD_ITS ---
STUDY: X-RAY - PELVIS AND LEFT HIP REASON FOR EXAM: Female, 38 years old. Left hip pain TECHNIQUE: 3 views of the pelvis and hip. COMPARISON: None. FINDINGS: There is a non-specific bowel gas pattern. There is an IUD within the pelvis. Normal bilateral iliac wings, sacroiliac joints and visualized sacrum. Normal bilateral superior and inferior pubic rami. Normal pubic symphysis. Normal bilateral ischial tuberosities. The right hip joint appears normal. Normal visualized femoral head. Normal acetabulum. There is minimal articular joint space narrowing of the hip. There are peripheral radiopaque objects likely within the clothing. There is a phlebolith in the left side of the pelvis. RAD/HIP, UNI W/ Pelvis 2-3 Views IMPRESSION: There is minimal degenerative change of the left hip joint. No visualized fracture. Electronically Signed: Sommer Storey MD at 16:19 EDT Tel , Service support ,
--- NOTE | 2018-12-08 17:04 | ED.RN ---
PT REQUESTING PRESCRIPTION FOR TYLENOL. DR KING NOT PRESCRIBING MEDICATION. PT NOTIFIED.
== END 2018-12-08 16:56 | disposition home or self-care (01) ==
PROVIDERS: Emergency Provider Emergency Medicine; Family Provider Internal Medicine; PCP Internal Medicine
DX: S39.011A Strain of muscle, fascia and tendon of abdomen, initial encounter (principal); Z86.73 Personal history of transient ischemic attack (TIA), and cerebral infarction without residual deficits; Z72.0 Tobacco use; Z79.01 Long term (current) use of anticoagulants
CPT/HCPCS: 73502; 99282

== ENCOUNTER 2019-03-11 14:00 | Outpatient (RCR) | payer MEDICAID, SELFPAY ==
--- NOTE | 2019-01-02 15:32 | HP.OTEVAL_ITS ---
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 Date of Evaluation: 01/01/19 Occupational Therapist: Meena Hernandez, OTR/L - Subjective Subjective: Meg Montilla arrived at OT evaluation and noted she is s/p CVA occurring two years ago at the beginning of 2016. She noted that prior to initial CVA she started having seizures and was using heroine. 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 She noted she was living in [place] at this time of initial CVA. Meg Montilla noted she has received ongoing therapy as CVA was followed by seizures. She was referred to OT due to some decline in function and noted she would like to be able to progress with cooking tasks. 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 She noted she is having increased difficulty seqeuncing, problem solving, safety awareness, and general completion of cooking related tasks and has to complete all cooking tasks with her mother. She would like to be able to have increased (i) with cooking tasks. - Objective Objective/Observation: Increased global aphasia noted. She is able to follow directions but has increased deficits with comprehension of verbal directions for memory related tasks. - ROM Shoulder: WFL Elbow: WFL Forearm: WFL Wrist: WFL MP: WFL PIP: WFL DIP: WFL - Strength Manager Provider Relations: R 45, L 55 Lateral Pinch: R 17, L 23 Tripod Pinch: R 18, L 22 Tip-to-Tip Pinch: R 16, L 14 Strength Comments: R sided weakness observed. She will completed strengthening to R UE. - Sensation Kinesthesia: Abnormal - Right, Normal - Left Proprioception: Abnormal - Right, Normal - Left Sensation Comments: Denies numbness or tingling in fingers. - Visual/Perceptual Skills Visual Field Cut: Yes Left Neglect: No Comments: Will continue to monitor. - Cognitive Skills Follows Directions: Yes Short Term Memory Impaired: Yes Cognitive Comments: MoCA: . Increased auditory processing and comprehension difficulty. She often responds well when tasks are written, and she can visually attend to read them. - Attention Attention: Normal - Quick DASH-Disab of Arm,Shoulder& Hand Quick DASH Score: 10.0000 - Goals Goal:: Meg Montilla to increased RUE strength through increaed R cleaning handyman strength by 15 lbs to promote increased UE strength and endurance needed for ADls/IADls by d/c. Goal:: Meg Goal:: Meg montilla to be mod I to complete visual based recipe for 6 basic simple cooking tasks e.g making coffee and simple 4-5 step meal prep tasks 4/5 trials 80% of the time to promote increased (i) with good safety awareness to promote ability to completed simple meal prep by d/c. Goal:: Meg montilla to be mod I to complete seqeuncing and following of 4-5 steps recipe for simple meal prep with good safety awareness and no more than 1x verbal cues needed 4/5 trials 80% of the time by d/c. Goal:: Meg Montilla to compelte daily HEp to promote increased RUE strengthening and endurance needed to promote returning to PLOF 4/5 trials 80% of the time by d/c. - Rehabilitation General Assessment: Meg Montilla is 39 y/o woman who is s/p CVA occurring in 2017. She has since experienced seizures that are managed through medication. Meg Montilla noted she is currently living with biological mother. She was previously cooking simple meals between CVA and most recent seizure but noted she is no longer completing tasks. Meg Montilla is poor information of current and prior level of functioning. Based on right sided weakness and general increased cognitive deficits and increased want to complete simple meal preparation she will receive skilled OT services to promote strength, sequencing, safety awareness, and problem solving for functional tasks of cooking to promote increased (i) for simple meal preparation by d/c. Rehabilitation Potential: Good - Anticipated Interventions Anticipated Interventions: A/AAROM/PROM, Strengthening, Neuro Reeducation, Visual/Perceptual Skills, Cognitive Skills, ADL Training, Caregiver Training, Home Program - Visit Plan Frequency: 2x /Week Duration: 4 Weeks General Plan: Meg montilla to complete cognitive training needed for simple meal prep as ST to complete additional cognitive training. OT to focus on cooking only which will include sequencing, problem solving, comprehension, and safety awareness as well as geenral strengthening of BUE to promote increased ability to promote (i) and decrease need for further assistance while at home by d/c. TEXT: Thank you for the opportunity to evaluate your patient. For Medicare and Medicare HMO plans, please review the plan of care and approve it. It will need to be FAXED BACK to us at [phone] for Medicare purposes. Please let me know if there are questions or concerns regarding this plan of care. Physician Signature: Date:
--- NOTE | 2019-01-16 14:51 | HP.OTDCSUM ---
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 Please see the following information for a summary of their discharge status. She was seen for one appointment for treatment which occurred today 01/16/19. - Objective Objective/Function: Raul Montilla completed cooking safety with 57% accuracy and need for 3x cues to complete. She perseverated on need for ST and was able to be redirected to task 1x but did not like idea of working on cooking with OT in clinic and wants to complete at home instead. OT offered to go to home 1-2x to address but unable to go to work on multiple times. She declined further therapy and would like ST and PT services. ST evaluation on 02/07/19. - Goals Patient Goals: Regain Strength, Improve Fine Motor Skills, Use Hand/Wrist/Arm Normally Again, Be More Independent in ADLS, Improve Visual/Perceptual Skills, Resume Former Household Responsibilities (Cooking,Cleaning,Yard, etc.) Goal:: Raul Montilla to increased RUE strength through increaed R health policy manager strength by 15 lbs to promote increased UE strength and endurance needed for ADls/IADls by d/c. Goal:: Raul Goal:: Raul montilla to be mod I to complete visual based recipe for 6 basic simple cooking tasks e.g making coffee and simple 4-5 step meal prep tasks 4/5 trials 80% of the time to promote increased (i) with good safety awareness to promote ability to completed simple meal prep by d/c. Goal:: Raul montilla to be mod I to complete seqeuncing and following of 4-5 steps recipe for simple meal prep with good safety awareness and no more than 1x verbal cues needed 4/5 trials 80% of the time by d/c. Goal:: Raul Montilla to compelte daily HEp to promote increased RUE strengthening and endurance needed to promote returning to PLOF 4/5 trials 80% of the time by d/c. - Plan Plan: Raul Montilla will be d/c'd at this time as she is declining further treatment and would like only ST to address cognitive and cooking related concerns. - D/C Information If there are questions or concerns regarding this patient's occupational therapy, please fell free to call me at [phone]. Thank you for the referral of this patient. Sincerely, Meena Hernandez OTR/L
--- NOTE | 2019-02-05 15:59 | HP.PTEVAL ---
Patient's Visit Information RAUL HOPPER is a 39 year old F referred to Physical Therapy by DORIS Navarrete with a diagnosis of R CVA. Date of Evaluation: 01/01/19 Physical Therapist: Gisela Bishop DPT - Visit Plan Plan: 01/01/19 Called for script for new AFO's that fit appropriatly. Once new AFO is recieved - Focus on increase functional B LE strength, improving balance, gait training, and improving muscular performance/endurance. - Subjective Findings: Pt. reports suffering a CVA 3 years ago, does not remember much regarding incident. Began rehab in [place] and moved to [place] 03/05/18. Py. george any pain, later stated she takes tylenol any time she has pain. Pt. lives in a two story home w/ her Mom. Can ambulate & ascend/descend stairs w/ use of AFO. Pt. desires a new AFO & shoes d/t poor fit & being uncomfortable. Pt. states her desire to is to be able to run. Pt. also reports a hx of seizures. - Objective Posture:fair throughout treatment session. Gait: R Hip ER, R pelvic rotation, lacks arm swing & appropriate heel strike. Lacks hip flexion - circumducts/vaults leg to advance. Excessive supination in L foot. Wears AFO. Tandem Walk: 4 steps then loss of balance- righted with LE. HR/TR: HR: WFL with UE A TR: diminished on right by 50%- uses inversion to compensate. Strength: Core: fair, Right LE: Hip: 4/5 throughout Knee: 5/5, Ankle: PF/Inv: 5/5, Ever and DF: 2+/5. ROM: Core/hip/knee: WFL ANkle: PF, inversion: WFL, DF PROM: WFL AROM: neutral. Ever: PROM: WFL, AROM: neutral. SLS: Left: 15 seconds Right: 4 seconds. Stairs: asc/desc 8 recop with 1 HR and excessive ER of the hips. AFO on Right: poor fit and does have mild skin breakdown on arch of foot with blister - Goals Goal 1:: Pt. will be I w/ HEP & progression Goal Time Frame: 4-6 Weeks Goal 2:: Pt. will demo R SLS for 15 sec w/ no UE assist. Goal Time Frame: 4-6 Weeks Goal 3:: Pt. will be able to amd. >300 ft. w/ normalized gait pattern. Goal Time Frame: 4-6 Weeks Goal 4:: Pt. will report 0/10 pain for 1 week. Goal Time Frame: 4-6 Weeks - Rehabilitation Potential Physical Therapy Diagnosis: Presents w/ hypomobility, strength, impaired gait , R sided weakness, and history of cardiac issues and drug abuse which has led to impaired function. Rehabilitation Potential: Fair - Anticipated Interventions Patient/Client Instruction: Educate patient on: Condition For the Purpose of:: To improve muscle performance and motor function Therapeutic Exercise to Include: Strength training, Endurance training, Balance training, Coordination, Agility training, Body mechanics Thank you for the opportunity to evaluate your patient. For Medicare and Medicare HMO plans, please review the plan of care and approve it. It will need to be FAXED BACK to us at [phone] for Medicare purposes. For Medicare only, by signing this I certify the plan of care. Please let me know if there are questions or concerns regarding this plan of care. Physician Signature: Date:
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
--- NOTE | 2019-04-18 14:00 | HP.SP.DC_ITS ---
ST Discharge Summary - Discharged: Discharge: The Patient is a 38 year old female referred for clinical assessment of the patients cognitive communication abilities at [facility] on 02/07/2019 due to persistent cognitive communication deficits following a 04/01/2016 heroin overdose leading to cerebrovascular infarction and intracranial hemorrhage likely involving the left temporal lobe, left parietal lobe, left basal ganglia, right frontal region extending to the basal ganglia, and right thalamus, status post right frontal craniotomy with results of the assessment revealing moderate cognitive communication deficits. Intervention recommendations included training and implementation of recommended compensatory expressive speech strategies, with considerations for Semantic Feature Analysis (SFA) and Verb Network Strengthening Treatment (VNeST) approaches; training and implementation of internal and external compensatory cognitive processing compensatory strategies, with considerations for implementation of internal and external visuospatial compensatory strategies, to include systemic and tax senior associate scanning therapy with use of principles for visual scanning (Locus of the stimulus, anchoring, pacing, density, information load, performance prediction and feedback). The Patient was scheduled for 3 intervention sessions following the 02/07/2019 cognitive communication assessment, which was consistent with prior intervention attempts at this facility (05/10/2016 and 04/18/2018) despite arrangements for transportation made by this facility. In accordance with this facilities attendance policies, we must unfortunately discharge the Patient from the caseload at this time, though would gladly re-initiate intervention moving forward only if the Patient is willing and able to meaningfully participate. Catracho Saunders M.A., CCC-MICA INSPECTOR, CBIS. MBSImP Certified, LSVT Certified. [facility]. Speech-Language Pathology Department. . [email or web address]
--- NOTE | 2019-04-23 10:27 | HP.PT.NRP ---
HP - Discharge Summary (1) - Patient Information RAUL HOPPER was seen in my office for initial evaluation on 01/01/19. The following Plan of Care was established for this patient: - Anticipated Interventions Patient/Client Instruction: Educate patient on: Condition For the Purpose of:: To improve muscle performance and motor function Therapeutic Exercise to Include: Strength training, Endurance training, Balance training, Coordination, Agility training, Body mechanics This patient was last seen in our office . Pertinent comments regarding their Physical therapy will appear below: Patient has not attended PT in over 4 weeks- appropriate to be d/c At this point I will be discontinuing this patient from physical therapy. I would be happy to see this patient again in the future if found appropriate by the physician. Thank you! KEY GaonaT
== END 2019-03-11 19:00 | disposition home or self-care (01) ==
LOC: PT 14:00
PROVIDERS: Family Provider Internal Medicine; PCP Internal Medicine; Referring Provider Nurse Practitioner Primary Care; Visit Provider Nurse Practitioner Primary Care
DX: I63.119 Cerebral infarction due to embolism of unspecified vertebral artery (principal)
CPT/HCPCS: 92523; 97110; 97161; 97166; 97530

== ENCOUNTER 2019-04-19 18:39 | Emergency (ER) | payer MEDICAID, SELFPAY ==
[2019-04-19 18:40] VITALS: BP 108/76; PULSE 83; RESP 16; TEMP 36.6; O2SAT 96; BMI 22.8
[2019-04-19 18:48] VITALS: O2SAT 96
--- NOTE | 2019-04-19 19:10 | CT_ITS ---
STUDY: CT BRAIN WITHOUT CONTRAST REASON FOR EXAM: Female, 39 years old. FREQUENT FALLS, SEIZURE RADIATION DOSAGE (If Supplied By Facility): CTDIvol = ( 44.99 ) mGy, DLP = ( 741.26 ) mGycm TECHNIQUE: Transaxial CT imaging of the brain was performed without administration of intravenous contrast material. Individualized dose optimization techniques were used for this CT. COMPARISON: Prior study of 04/18/2016 FINDINGS: Normal soft tissue structures. There are status post craniotomy findings of the right frontal and left parietal regions. There is mild cerebral atrophy with widening of the extra-axial spaces and ventricular dilatation. There are regions of encephalomalacia involving the left temporoparietal region and right frontal lobes. Metallic clips are seen in the regions of encephalomalacia bilaterally. There are areas of decreased attenuation within the white matter tracts of the supratentorial brain, consistent with microvascular disease changes. Normal basal ganglia and thalami. Normal brainstem. Normal cerebellum. There is no intracranial hemorrhage. There are no findings of an acute ischemic infarction. Normal visualized paranasal sinuses. CT/Brain/Head without Contrast IMPRESSION: Status post craniotomy of the right frontal and left parietal regions with underlying areas of encephalomalacia. Surgical clips are seen in the region of encephalomalacia bilaterally. Chronic involutional changes. There is no intracranial hemorrhage or evidence of acute infarct. There has been interval resolution of minimal subdural hemorrhage of the right frontal region seen on the previous study. No other significant interval changes noted. Electronically Signed: Jaren Larson MD at 20:00 EST , Service support ,
--- NOTE | 2019-04-19 19:11 | RAD_ITS ---
STUDY: X-RAY - RIGHT TIBIA AND FIBULA REASON FOR EXAM: Female, 39 years old. fall, pain TECHNIQUE: 2 view(s) of the tibia and fibula were obtained. COMPARISON: None. FINDINGS: Normal visualized tibia. Normal visualized fibula. The soft tissue structures are unremarkable. RAD/Tibia & Fibula 2 Views IMPRESSION: Normal x-ray examination of the tibia and fibula. Electronically Signed: Jaren Larson MD at 20:05 EST , Service support ,
--- NOTE | 2019-04-19 19:40 | RAD_ITS ---
STUDY: X-RAY - RIGHT FOOT CLINICAL: Female, 39 years old. fall, pain TECHNIQUE: 3 view(s) of the foot. COMPARISON: Prior study of 11/13/2018 FINDINGS: Normal talus, calcaneus, and tarsal bones. Normal visualized subtalar, talonavicular, calcaneocuboid, tarsal and tarsometatarsal articulations. Normal metatarsi. Normal metatarsophalangeal joint of the great toe. Normal tibial and fibular sesamoid bones. Normal interphalangeal joint of the great toe. Normal phalanges of the great toe. Normal second through fifth metatarsophalangeal joints. Normal interphalangeal joints and phalanges of the lesser toes. The soft tissue structures are unremarkable. RAD/Foot min 3 Views IMPRESSION: Normal x-ray examination of the foot. Electronically Signed: Jaren Larson MD at 20:03 EST , Service support ,
[2019-04-19 19:51] LABS: Absolute Lymphocyte Count 1.69 X10^3/uL (0.83-4.51); Absolute Neutrophil Count 3.5 X10^3/uL (2.0-7.7); Basophil# 0.04 X10^3/uL; Basophil% 0.7 % (0-1); Eosinophils% 1.7 % (0-5); Hematocrit 41.6 % (37-47); Hemoglobin 14.1 g/dL (12.0-15.0); Lymphocyte # 1.69 X10^3/ul (4.0); Lymphocyte % 28.6 % (19-41); Mean Corp Hgb Conc 33.9 g/dL (32-36); Mean Corpuscular Hgb 31.5 pg (27.0-32.0); Mean Corpuscular Volume 93.1 fL (81-99); Mean Platelet Vol. 12.3 fl (6.2-12.0); Monocyte# 0.56 X10^3/uL; Monocyte% 9.5 % (0-10); NRBC Flagged by Analyzer 0 % (0-5); Neutrophil % 59.3 % (47-70); Platelet Count 178 K/mm3 (150-450); RBC Distribution Width CV 12.1 % (11.6-14.6); RBC Distribution Width SD 41.8 fl (35.1-43.9); Red Blood Count 4.47 M/mm3 (4.2-5.4); White Blood Count 5.9 K/mm3 (4.4-11.0)
[2019-04-19 19:59] LABS: Internal QC Validated? YES +Cl - CLEAR BKGD; Pregnancy, Serum, hCG Quali. NEGATIVE Negative
[2019-04-19 20:05] LABS: Anion Gap 3 (5-15); BUN 17 mg/dL (7-18); BUN/Creat Ratio 15.6 RATIO (10-20); Calcium,Total 9.1 mg/dL (8.5-10.1); Chloride 108 mmol/L (98-107); Creatinine, Serum 1.09 mg/dL (0.55-1.02); EST Glomerular Filtration Rate 60 mL/min (>60); Est Glom Filt Rate - Afr Amer 73 mL/min (>60); Estimated Creatinine Clearance 84.11 ml/min; Glucose 96 mg/dL (74-106); Potassium 3.5 mmol/L (3.5-5.1); Sodium Level 139 mmol/L (136-145)
[2019-04-19 20:14] LABS: Prothrombin Time (Protime)PT. 13.4 SECONDS (11.7-14.9)
[2019-04-19 20:23] LABS: Alcohol, Blood (Medical)-Serum < 3.0 mg/dL
[2019-04-19 20:26] LABS: Mucous, Urine 0 SEEN /hpf (<or=2+); Red Blood Cells-Urine 0 SEEN /hpf (0-5)
[2019-04-19 20:34] LABS: Color, Urine Yellow (Yellow); Glucose, Dipstick Normal (Normal); Ketone-Dipstick Negative (Negative); Leukocyte Esterase-Dipstick 25 /ul (Negative); Nitrite-Dipstick Negative (Negative); Occult Blood-Urine Negative /ul (Negative); Protein-Dipstick 15 mg/dl (Negative); Specific Gravity, Urine 1.025 (1.002-1.030); Urine Bilirubin Dipstick Negative (Negative); Urine Clarity Sl. Cloudy (Clear); Urine Urobilinogen Normal (Normal)
[2019-04-19 20:40] LABS: Squamous Epithelial Cells - UA 10-25 SEEN /hpf (5-10)
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
[2019-04-19 20:41] LABS: Bacteria 1+ /hpf (None Seen); White Blood Cells 0-5 SEEN /hpf (0-5)
--- NOTE | 2019-04-19 20:43 | ED.VISSUMM ---
- ER Visit Summary Date of Service: 04/19/19 Chief Complaint: [Fall] History of Present Illness: The patient is a 39 F [presents to the emergency department via EMS with complaint of a fall this afternoon. Patient states that she was going up some steps when she fell and she is not sure how many steps she fell down. Patient was complaining of some pain to her right side but only the right lower extremity. She denies loss of consciousness. Patient is somewhat of a poor historian and difficult to follow her train of thought at times. She does have history of schizophrenia and prior history of stroke. Patient is supposed to be on Coumadin. Patient does not know her medications. Patient's mother arrived to the emergency department also to voice concern that she is currently staying with 1 of the mother's friends who is 63 years old who has concerns about the patient's behavior and feels that maybe she is taking her tramadol inappropriately because she is sleeping all the time. There was concern that she might be using drugs again. Patient has used heroin in the past. Patient is adamant that she has not used heroin since 2017. She denies feeling suicidal or homicidal. She denies hallucinations.] Other has concerns that patient is not taking care of herself like she should be. Physical Examination: [HEENT-PERRLA, EOMI. Cranial nerves II through XII grossly intact. TMs clear. Mucous membranes moist. No adenopathy. Cardiovascular-regular rate and rhythm without murmur or ectopy Lungs-clear to auscultation, chest wall stable without crepitus or subcu emphysema Abdomen-normoactive bowel sounds, soft, nontender, no rebound or rigidity, no peritoneal signs. Extremities-intact ?4, normal range of motion, normal pulses, atraumatic. Patient has tenderness to palpation over the right distal fibula and foot. There is no ecchymosis or bruising noted. She is neurovascular intact.] Test Results: [CBC with differential obtained was normal. Chemistries unremarkable. INR was 1.0. Alcohol was less than 3. Toxicology screen is pending. CT scan of the brain without contrast was unremarkable. X-rays of the right foot and right tib-fib were normal.] Emergency Department Course and Treatment: [I had patient evaluated by public health social worker as well. At this point we do not feel that patient requires a pink slip for psychiatric hold. Patient became restless and wanted to leave. I advised her that I would be in to talk to her shortly I was just waiting on a few more lab results and patient eloped from the emergency department.] Patient was walking through the department without difficulty. Treatment Plan: [] Disposition: [Patient left prior to treatment completion] Impression: [Fall Contusion right leg/foot Schizophrenia by history] This note was generated with [employer] dictation software. It may contain incorrect words, spelling, and punctuation that were not noted in review of the chart prior to signing ED Disposition - Plan for ED Patient: Referrals: Anca Philippe MD [Primary Care Provider] -
--- NOTE | 2019-04-19 20:48 | ED.DEP ---
ED Disposition - Plan for ED Patient: Instructions: FALL, Mechanical, CONTUSION, Lower Extremity Referrals: Anca Philippe MD [Primary Care Provider] - 5-7 Days
[2019-04-19 20:53] LABS: Amphetamine Urine VISTA NEGATIVE (<1000 ng/mL); Barbiturate Urine VISTA NEGATIVE (< 200 ng/mL); Benzodiazepine Urine VISTA NEGATIVE (< 200 ng/mL); Cocaine Urine VISTA NEGATIVE (< 300 ng/mL); Ecstacy Urine VISTA POSITIVE (< 500 ng/mL); Methadone Urine VISTA NEGATIVE (< 300 ng/mL); PCP Urine VISTA NEGATIVE (< 25 ng/mL); THC Urine VISTA POSITIVE (< 50 ng/mL); Vista UDS pH Range 5
--- NOTE | 2019-04-19 20:57 | ED.RN ---
patient advised she was ready to go home. patient no longer wants to stay. patient IV removed. patient able to walk under own free will. spoke to Dr. zhao and social work. Patient not pink slipped and able to leave if she wants. Patient left prior to discharge instructions
== END 2019-04-19 21:01 | disposition home or self-care (01) ==
PROVIDERS: Emergency Provider Emergency Medicine; Family Provider Internal Medicine; PCP Internal Medicine
DX: S80.11XA Contusion of right lower leg, initial encounter (principal); W19.XXXA Unspecified fall, initial encounter; F20.9 Schizophrenia, unspecified; Z86.73 Personal history of transient ischemic attack (TIA), and cerebral infarction without residual deficits; Z72.0 Tobacco use; Z79.01 Long term (current) use of anticoagulants
CPT/HCPCS: 70450; 73590; 73630; 80048; 80307; 80320; 81001; 84703; 85025; 85610; 99285; G0480

== ENCOUNTER 2019-05-02 14:09 | Emergency (ER) | payer MEDICAID, SELFPAY ==
[2019-05-02 14:10] VITALS: BP 123/74; PULSE 79; RESP 16; TEMP 36.9; O2SAT 99; BMI 21.1
--- NOTE | 2019-05-02 15:26 | EKG12_ITS ---
Test Reason : MENTAL HEALTH Blood Pressure : / mmHG Vent. Rate : 073 BPM Atrial Rate : 073 BPM P-R Int : 226 ms QRS Dur : 094 ms QT Int : 394 ms P-R-T Axes : 040 096 057 degrees QTc Int : 434 ms Sinus rhythm with 1st degree A-V block Otherwise normal ECG Confirmed by KARYN HOU, NAV ([id number]), news videotape editor KEI LEON ([id number]) on 05/06/2019 12:46:45 PM Referred By: FRANCIS Confirmed By:NAV BOSS MD
[2019-05-02 16:28] LABS: Absolute Lymphocyte Count 1.35 X10^3/uL (0.83-4.51); Absolute Neutrophil Count 4.9 X10^3/uL (2.0-7.7); Basophil# 0.05 X10^3/uL; Basophil% 0.7 % (0-1); Eosinophil# 0.03 X10^3/uL; Eosinophils% 0.4 % (0-5); Hemoglobin 15.1 g/dL (12.0-15.0); Lymphocyte # 1.35 X10^3/ul (4.0); Lymphocyte % 20.1 % (19-41); Mean Corp Hgb Conc 34.3 g/dL (32-36); Mean Corpuscular Hgb 32.3 pg (27.0-32.0); Mean Platelet Vol. 11.7 fl (6.2-12.0); Monocyte# 0.36 X10^3/uL; Monocyte% 5.4 % (0-10); NRBC Flagged by Analyzer 0 % (0-5); Neutrophil % 73.3 % (47-70); Platelet Count 232 K/mm3 (150-450); RBC Distribution Width CV 12.5 % (11.6-14.6); RBC Distribution Width SD 42.9 fl (35.1-43.9); Red Blood Count 4.68 M/mm3 (4.2-5.4); White Blood Count 6.7 K/mm3 (4.4-11.0)
[2019-05-02 16:44] LABS: AST(SGOT) 9 U/L (15-37); Alanine Aminotransfer ALT/SGPT 15 U/L (13-56); Albumin, Serum 4.7 g/dL (3.2-5.0); Alkaline Phosphatase 73 U/L (45-117); Anion Gap 8 (5-15); BUN 16 mg/dL (7-18); BUN/Creat Ratio 14.3 RATIO (10-20); Bilirubin, Direct 0.12 mg/dL (0.00-0.30); Calcium,Total 9.1 mg/dL (8.5-10.1); Chloride 107 mmol/L (98-107); Creatinine, Serum 1.12 mg/dL (0.55-1.02); EST Glomerular Filtration Rate 58 mL/min (>60); Est Glom Filt Rate - Afr Amer 70 mL/min (>60); Estimated Creatinine Clearance 78.79 ml/min; Globulin 3.4 g/dL (2.2-4.2); Glucose 97 mg/dL (74-106); Potassium 3.6 mmol/L (3.5-5.1); Protein, Total 8.1 g/dL (6.4-8.2); Sodium Level 140 mmol/L (136-145)
[2019-05-02 17:19] LABS: Internal QC Validated? YES +Cl - CLEAR BKGD; Pregnancy, Serum, hCG Quali. NEGATIVE Negative
[2019-05-02 17:22] LABS: Alcohol, Blood (Medical)-Serum < 3.0 mg/dL
[2019-05-02 18:18] LABS: Bacteria 0 SEEN /hpf (None Seen); Mucous, Urine 0 SEEN /hpf (<or=2+); Red Blood Cells-Urine 0 SEEN /hpf (0-5); White Blood Cells 0 SEEN /hpf (0-5)
[2019-05-02 18:22] LABS: Color, Urine Yellow (Yellow); Glucose, Dipstick Normal (Normal); Ketone-Dipstick 5 mg/dl (Negative); Leukocyte Esterase-Dipstick 25 /ul (Negative); Nitrite-Dipstick Negative (Negative); Occult Blood-Urine 10 /ul (Negative); Protein-Dipstick 30 mg/dl (Negative); Specific Gravity, Urine 1.025 (1.002-1.030); Urine Bilirubin Dipstick Negative (Negative); Urine Clarity Clear (Clear); Urine Urobilinogen Normal (Normal)
[2019-05-02 18:35] LABS: Amphetamine Urine VISTA NEGATIVE (<1000 ng/mL); Barbiturate Urine VISTA NEGATIVE (< 200 ng/mL); Benzodiazepine Urine VISTA NEGATIVE (< 200 ng/mL); Cocaine Urine VISTA NEGATIVE (< 300 ng/mL); Ecstacy Urine VISTA POSITIVE (< 500 ng/mL); Methadone Urine VISTA NEGATIVE (< 300 ng/mL); PCP Urine VISTA NEGATIVE (< 25 ng/mL); THC Urine VISTA POSITIVE (< 50 ng/mL); Vista UDS pH Range 6
[2019-05-02 18:37] LABS: Squamous Epithelial Cells - UA 0-5 SEEN /hpf (5-10)
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
--- NOTE | 2019-05-02 19:44 | ED.VISSUMM ---
- ER Visit Summary Date of Service: 05/02/19 Chief Complaint: Depression History of Present Illness: The patient is a 39 F who presents with depression that is been getting worse over the past few months. Patient states she recently moved to [place] and has been having difficulty adjusting. Patient states she has no family here in [place]. Patient states this is making her depressed. Patient states she has had thoughts of suicide but denies any specific plan. Patient also states she has been feeling agitated at times. Patient denies any homicidal ideations. Physical Examination: Vital signs are stable. Patient is afebrile. Patient is in no acute distress. Oral mucosa is pink and moist. Neck is supple. Trachea is midline. There is no JVD noted. Heart was regular rate and rhythm. Lungs are clear and equal bilaterally. Abdomen is soft. Bowel sounds are normal. There is no tenderness. There is no rebound or guarding noted. Skin is warm dry. Cranial nerves II through XII are intact. There are no focal motor or sensory deficits noted. Extremities are intact. There is no calf tenderness or edema. Patient does have a flat affect. Patient currently denies any suicidal ideations. Test Results: CBC and comprehensive metabolic profile were within normal limits. Urinalysis does not show any evidence of urinary tract infection. Serum hCG was negative. Urine tox was positive for methamphetamines and cannabinoids. Serum alcohol level was normal. EKG showed normal sinus rhythm with a rate of 73. There are no acute ST or T wave changes. Emergency Department Course and Treatment: workers' compensation magistrate was in to evaluate the patient. Since the patient is not actively suicidal homicidal, the patient will be able to follow-up with crisis counseling tomorrow. I do not feel patient warrants admission at this time. Patient understood and was agreeable with the plan. All questions were answered. Disposition: Discharge home Impression: Depression This note was generated with [employer] dictation software. It may contain incorrect words, spelling, and punctuation that were not noted in review of the chart prior to signing ED Disposition - Plan for ED Patient: Disposition: Home or Assisted Living Diagnosis: Depression Instructions: Depression Referrals: Anca Philippe MD [Primary Care Provider] - Counseling,Center [GROUP OF PHYSICIANS] - 1 Day
[2019-05-02 20:02] VITALS: RESP 18
== END 2019-05-02 20:07 | disposition home or self-care (01) ==
PROVIDERS: Emergency Provider Emergency Medicine; Family Provider Internal Medicine; PCP Internal Medicine
DX: F32.9 Major depressive disorder, single episode, unspecified (principal); R11.2 Nausea with vomiting, unspecified; Z86.73 Personal history of transient ischemic attack (TIA), and cerebral infarction without residual deficits; F17.210 Nicotine dependence, cigarettes, uncomplicated
CPT/HCPCS: 80048; 80076; 80307; 80320; 81001; 84703; 85025; 93005; 99283; G0480